=== PATIENT | female | born 1990 | race Caucasian/White ===

== ENCOUNTER 2019-05-24 11:44 | Inpatient (IN) ==
[2019-05-24] MEDS ORDERED: ALBUTEROL NEB ONE (12:05)
--- NOTE | 2019-05-24 12:05 | PROVIDER DOCUMENTATION ---
HPI-Respiratory General - General Chief Complaint: SEPSIS ALERT - P Stated Complaint: CONGESTION, BACK PAIN, FEVER Time Seen by Provider: 05/24/19 11:51 Source: patient, family Allergies/Adverse Reactions: Patient Allergies Allergy/AdvReac Type Severity Reaction Status Date / Time No Known Allergies Allergy Verified 05/24/19 13:30 Home Medications: Home Medication List Medication Instructions Recorded Confirmed Last Taken Type NK [No Home Medications] 05/24/19 05/24/19 Unknown History - History of Present Illness-Resp Nature of Presenting Problem: 28yof present to ER with c/o cough and congestion x 3 days. Denies fever. Parents states pt has c/o back pain. Parents poor historians. Quality of Pain: reports: aching Onset/Duration: reports: 3 days ago Timing: reports: still present Cough Quality/Degree: reports: productive cough (green) Associated Symptoms: reports: cough, hurts to breathe, nasal congestion. denies: fever/chills, wheezing Review of Systems - Adult - REVIEW OF SYSTEMS - ADULT Constitutional: reports: no symptoms reported. denies: chills, fever Eyes: reports: no symptoms reported Ears, Nose, Mouth & Throat: reports: see HPI, sinus problem. denies: throat pain Cardiovascular: reports: no symptoms reported. denies: chest pain Respiratory: reports: see HPI, cough Gastrointestinal: reports: no symptoms reported. denies: nausea, vomiting Genitourinary: reports: no symptoms reported Musculoskeletal: reports: see HPI, back pain Integumentary: reports: no symptoms reported Neurological: reports: no symptoms reported Psychiatric: reports: no symptoms reported Endocrine: reports: no symptoms reported Hematologic/Lymphatic: reports: no symptoms reported Allergic/Immunologic: reports: no symptoms reported All Other Systems: Reviewed and Negative Past History - Adult - PAST MEDICAL HISTORY-ADULT Review of Records: reports: Old Records Reviewed, Nursing Assessment Review, Medications Reviewed, Social history reviewed & non-contributory. Major Childhood Illnesses: reports: denies history Cardiovascular: reports: denies history, other (unknown congenital "heart trouble") Respiratory: reports: denies history Gastrointestinal: reports: denies history Obstetrical/Gynecological: reports: denies history Genitourinary: reports: denies history Musculoskeletal: reports: denies history Neurological: reports: denies history Psychiatric: reports: denies history Endocrine/Immune: reports: denies history Other Conditions: reports: denies history - PRIOR SURGERIES/PROCEDURES Surgical/Procedure History: reports: none - PRIOR HOSPITALIZATIONS Prior Hospitalizations: reports: other () - IMMUNIZATION STATUS Childhood Immunizations: See Nurse Assessment Flu Vaccine: See Nurse Assessment - FAMILY HISTORY Family History: reviewed, not pertinent Physical Exam-General - PHYSICAL EXAM-ADULT Initial Vital Signs Reviewed: Yes - CONSTITUTIONAL General Appearance: alert, no apparent distress - HEAD, EARS, NOSE, MOUTH & THROAT HENMT: moist mucous membranes, TMs normal, pharynx normal, other (yellow sputum to nose). negative: angioedema, frontal tenderness, maxillary tenderness - NECK Neck: full range of motion, supple, normal inspection. negative: lymphadenopathy, meningismus - RESPIRATORY Respiratory: lungs clear, normal breath sounds, increased rate - CARDIOVASCULAR Cardiovascular: tachycardia - GASTROINTESTINAL (ABDOMEN) Abdominal Exam: normal bowel sounds, non tender, soft - MUSCULOSKELETAL Back Exam: normal inspection Extremity: normal range of motion, normal inspection - SKIN Integumentary: normal color, warm/dry. negative: diaphoresis, jaundice, rash - NEUROLOGIC Neurologic: grossly normal - PSYCHIATRIC Psych/Mental Status: normal mood/affect Progress - PLAN OF CARE/RESULTS Progress/Plan/Lab Results: Vital Signs - 8 hr 05/24/19 11:52 05/24/19 12:30 05/24/19 12:59 Pulse Rate 114 H 120 H 103 H Respiratory Rate 28 H 24 18 Blood Pressure 108/70 135/75 O2 Sat by Pulse Oximetry 81 L 94 L Laboratory Results - last 24 hr 05/24/19 05/24/19 05/24/19 12:25 12:30 12:30 WBC 12.96 H RBC 4.97 Hgb 14.6 Hct 46.3 MCV 93.2 MCH 29.4 MCHC 31.5 L RDW Std Deviation 14.6 H Plt Count 266 MPV 10.5 H Immature Gran % (Auto) 0.8 H Neut % (Auto) 70.6 Lymph % (Auto) 19.0 L Mcminn % (Auto) 7.6 Eos % (Auto) 1.4 Baso % (Auto) 0.6 Immature Gran # (Auto) 0.11 H Neut # (Auto) 9.14 H Lymph # (Auto) 2.46 Mcminn # (Auto) 0.99 H Eos # (Auto) 0.18 Baso # (Auto) 0.08 Segmented Neutrophils 79 H Lymphocytes 14 L Monocytes 7 PT INR PTT (Actin FS) Specimen Type ARTERIAL Sample Site L RADIAL pH 7.36 pCO2 57 H* pO2 27 L* HCO3 27.2 H Base Excess 4.8 H Oxyhemoglobin 49.7 L* ABG O2 Sat (Calculated) 10.9 L ABG O2 Saturation 51.4 L ABG Carboxyhemoglobin 2.30 ABG Methemoglobin 1.1 James Test YES A-a O2 Difference 51.0 Total Hemoglobin 15.6 Lactate 1.20 Blood Gas Modality ROOM AIR FiO2 % 21.0 Sodium 141 Potassium 3.6 Chloride 99 Carbon Dioxide 28 Anion Gap 14 BUN 7 L Creatinine 0.8 Estimated GFR/1.73 m2 > 60 BUN/Creatinine Ratio 9 Glucose 146 H Calculated Osmolality 282 Calcium 8.9 Total Bilirubin 0.50 AST 15 ALT 21 Alkaline Phosphatase 76 Creatine Kinase 80 Troponin T Total Protein 7.4 Albumin 4.1 Globulin 3.0 Albumin/Globulin Ratio 1.0 Plasma Lactate Influenza A (Rapid) Influenza B (Rapid) 05/24/19 05/24/19 05/24/19 12:30 12:30 12:30 WBC RBC Hgb Hct MCV MCH MCHC RDW Std Deviation Plt Count MPV Immature Gran % (Auto) Neut % (Auto) Lymph % (Auto) Mcminn % (Auto) Eos % (Auto) Baso % (Auto) Immature Gran # (Auto) Neut # (Auto) Lymph # (Auto) Mcminn # (Auto) Eos # (Auto) Baso # (Auto) Segmented Neutrophils Lymphocytes Monocytes PT 14.8 INR 1.10 PTT (Actin FS) 35.1 Specimen Type Sample Site pH pCO2 pO2 HCO3 Base Excess Oxyhemoglobin ABG O2 Sat (Calculated) ABG O2 Saturation ABG Carboxyhemoglobin ABG Methemoglobin James Test A-a O2 Difference Total Hemoglobin Lactate Blood Gas Modality FiO2 % Sodium Potassium Chloride Carbon Dioxide Anion Gap BUN Creatinine Estimated GFR/1.73 m2 BUN/Creatinine Ratio Glucose Calculated Osmolality Calcium Total Bilirubin AST ALT Alkaline Phosphatase Creatine Kinase Troponin T 0.021 Total Protein Albumin Globulin Albumin/Globulin Ratio Plasma Lactate 1.3 Influenza A (Rapid) Influenza B (Rapid) 05/24/19 12:35 WBC RBC Hgb Hct MCV MCH MCHC RDW Std Deviation Plt Count MPV Immature Gran % (Auto) Neut % (Auto) Lymph % (Auto) Mcminn % (Auto) Eos % (Auto) Baso % (Auto) Immature Gran # (Auto) Neut # (Auto) Lymph # (Auto) Mcminn # (Auto) Eos # (Auto) Baso # (Auto) Segmented Neutrophils Lymphocytes Monocytes PT INR PTT (Actin FS) Specimen Type Sample Site pH pCO2 pO2 HCO3 Base Excess Oxyhemoglobin ABG O2 Sat (Calculated) ABG O2 Saturation ABG Carboxyhemoglobin ABG Methemoglobin James Test A-a O2 Difference Total Hemoglobin Lactate Blood Gas Modality FiO2 % Sodium Potassium Chloride Carbon Dioxide Anion Gap BUN Creatinine Estimated GFR/1.73 m2 BUN/Creatinine Ratio Glucose Calculated Osmolality Calcium Total Bilirubin AST ALT Alkaline Phosphatase Creatine Kinase Troponin T Total Protein Albumin Globulin Albumin/Globulin Ratio Plasma Lactate Influenza A (Rapid) NEGATIVE Influenza B (Rapid) NEGATIVE Orders Category Date Time Status Cardiac Monitoring DIRECTED Care 05/24/19 11:59 Completed IV Insertion ORDERED Care 05/24/19 11:59 Completed Notify MD of + Sepsis Screen NOW Care 05/24/19 11:59 Completed Notify Physician As Ordered Care 05/24/19 11:59 Completed Repeat Vital Signs .Temp Care 05/24/19 12:02 Active Straight Catheterization ORDERED Care 05/24/19 14:49 Active CHEST-1 VIEW [RAD] Stat Exams 05/24/19 11:59 Completed ABG [RESP] Routine Lab 05/24/19 12:25 Completed BLOOD CULTURE [BLDCUL] Stat Lab 05/24/19 12:41 Ordered CBC WITH DIFF [HEME] Stat Lab 05/24/19 12:30 Completed CK PROFILE [SP CHEM] Stat Lab 05/24/19 12:30 Completed COMPREHENSIVE METABOLIC PANEL [CHEM] Stat Lab 05/24/19 12:30 Completed Flu [INFLUENZA SCREEN PL] Stat Lab 05/24/19 12:35 Completed LACTATE, PLASMA [CHEM] Lab 05/24/19 12:30 Completed LACTATE, PLASMA [CHEM] Lab 05/24/19 15:21 Ordered LACTATE, PLASMA [CHEM] Lab 05/24/19 18:00 Uncollected PROTIME WITH INR [COAG] Stat Lab 05/24/19 12:30 Completed PTT [COAG] Stat Lab 05/24/19 12:30 Completed TROPONIN T Stat Lab 05/24/19 12:[address] W/POSS RFLX CULT [URINALYSIS] Stat Lab 05/24/19 14:50 Received 0.9% Sodium Chloride Inj [Ns] 1,000 ml Med 05/24/19 12:06 Discontinued IV 999 mls/hr Albuterol [Albuterol Neb] Med 05/24/19 12:05 Discontinued 2.5 mg .ROUTE .STK-MED ONE Albuterol [Albuterol Neb] Med 05/24/19 13:41 Discontinued 2.5 mg INH NOW ONE CefEPIME [Maxipime] 2 gm Med 05/24/19 14:30 Discontinued 0.9% Sodium Chloride Inj [Ns] 100 ml IV Q12H CefTRIAXONE [Rocephin] 1 gm Med 05/24/19 12:06 Discontinued 0.9% Sodium Chloride Inj [Ns] 50 ml IV NOW Pharmacy Order [Vancomycin IV Per Pharmacy] Med 05/24/19 14:30 Active 1 each MISC DIRECTED Oxygen Device Stat Oth 05/24/19 11:59 Completed neb [Aerosol Treatments] Stat Oth 05/24/19 12:30 Completed Transfer/Admit Order [TRANSFER] Routine Transfer 05/24/19 14:17 Ordered Result Diagrams: 05/24/19 12:30 05/24/19 12:30 - REASSESSMENT Reassessment #1 Time Reassessed: 14:02 (Dr Ceballos at bedside to see pt) Reassessment #2 Time Reassessed: 15:00 (pt placed on high flow O2) - XRAY 1 XRAY Study: Chest Impression: See EMR Report ( EXAM: CHEST-1 VIEW HISTORY: cough with low o2 sat TECHNIQUE: Single view COMPARISON: 12/31/2017 FINDINGS: Poor inspiratory effort. There are bilateral perihilar and left lower lung infiltrates. No cardiomegaly. No pleural effusions identified. IMPRESSION: Bilateral infiltrates. Follow-up and lateral recommended. Electronically signed by Solomon Hutchison 05/24/2019 12:52 PM) - CONSULTS/PCP/HOSPITALIST Notification #1 *Consult/PCP/Hospitalist*: Dr Ceballos spoke with Dr Klein Time Discussed: 14:02 Consult Disposition: Will see in ED, Admit Departure - Departure Date of Disposition Decision: 05/24/19 Time of Disposition Decision: 12:54 DIAGNOSIS: Elevated CO2 level, Shortness of breath Pneumonia Qualifiers: Pneumonia type: due to unspecified organism Laterality: bilateral Lung location: unspecified part of lung Qualified Code(s): J18.9 - Pneumonia, u nspecified organism Disposition: HOME 01 Certified Medical Emergency: Emergent Condition: Fair - Critical Care Note This patient required my direct & personal management of CC.: No Attestation - Physician/ NATAN Attestation Patient care was provided by Advanced Practice Provider:: Yes Advanced Practice Provider:: Neil Ha Advanced Practice Provider documentation review:: The Mid-level provider documentation, treatment plan and medical decision making was reviewed by the physician who agrees with all treatment and medical decision making by the MLP. The physician spent face to face time with patient:: Yes Advanced Practice Provider documentation review:: Supervising physician onsite and consulted in the evaluation and care of this patient. The physician did have a face to face encounter with the patient.
[2019-05-24] MEDS ORDERED: ROCEPHIN 1 GM in NS 50 ML IV ONE (12:06)
[2019-05-24] MEDS ORDERED: NS 1,000 ML IV ONE (12:06)
[2019-05-24 12:29] LABS: BE 4.8 mmoll (-3.0-3.0); BLOOD TYPE ARTERIAL; HCO3-(ACT) 27.2 mmoll (20.0-26.0); METHB 1.1 % (0.0-1.5); O2(CT) 10.9 mL/dL (15.0-23.0); SAMPLE BLOOD; SAO2 51.4 % (95.0-100.0); THB 15.6 g/dL (11.5-17.4); pH(98.6) 7.36 (7.35-7.45)
[2019-05-24 12:54] LABS: BASO# 0.08 X1000 (0.0-0.2); BASO% 0.6 % (0.0-0.8); EOS# 0.18 X1000 (0.0-0.7); EOS% 1.4 % (0.0-10.0); HEMATOCRIT 46.3 % (37.0-47.0); HEMOGLOBIN 14.6 g/dL (12.0-16.0); IMM GRAN# 0.11 X1000 (0.0-0.04); IMM GRAN% 0.8 % (0.0-0.5); LYMPH# 2.46 X1000 (1.2-3.4); MCH 29.4 PG (27-31); MCHC 31.5 g/dL (33-37); MCV 93.2 FL (81-99); MONO# 0.99 X1000 (0.11-0.59); MONO% 7.6 % (1.7-9.3); MPV 10.5 FL (7.4-10.4); NEUT# 9.14 X1000 (1.4-6.5); NEUT% 70.6 % (42.2-75.2); PLT 266 X1000 (130-400); RBC 4.97 XMIL (4.2-5.4); RDW 14.6 % (11.5-14.5); WBC 12.96 X1000 (4.8-10.8)
--- NOTE | 2019-05-24 12:54 | Diag Imaging Result Doc PS360 ---
EXAM: CHEST-1 VIEW HISTORY: cough with low o2 sat TECHNIQUE: Single view COMPARISON: 12/31/2017 FINDINGS: Poor inspiratory effort. There are bilateral perihilar and left lower lung infiltrates. No cardiomegaly. No pleural effusions identified. IMPRESSION: Bilateral infiltrates. Follow-up and lateral recommended. Electronically signed by Solomon Hutchison 05/24/2019 12:52 PM
[2019-05-24 13:02] LABS: PCO2(98.6) 57 mmHg (35-45); PO2(98.6) 27 mmHg (60-100)
[2019-05-24 13:03] LABS: INR 1.1; PROTIME 14.8 Seconds (11.0-16.0)
[2019-05-24 13:03] LABS: ALLEN TEST YES; MODALITY ROOM AIR; O2HB 49.7 % (95.0-99.0)
[2019-05-24 13:04] LABS: LYMPHS 14 % (21-51); MONO 7 % (1-9); PTT 35.1 Seconds (22.3-41.8); SEGS 79 % (42-75)
[2019-05-24 13:06] LABS: INFLUENZA A NEGATIVE (NEGATIVE); INFLUENZA B NEGATIVE (NEGATIVE)
[2019-05-24 13:07] LABS: AGAP 14; ALBUMIN 4.1 g/dL (3.5-5.0); ALKALINE PHOSPHATASE 76 U/L (32-104); BUN 7 mg/dL (8-22); CALCIUM 8.9 mg/dL (8.8-10.2); CHLORIDE 99 mmol/L (98-107); CK PROFILE 80 U/L (24-173); COSMO 282; CREATININE 0.8 mg/dL (0.5-0.9); ESTIMATED GFR > 60; GLUCOSE 146 mg/dL (70-104); GOT 15 U/L (10-30); GPT 21 U/L (10-36); POTASSIUM 3.6 mmol/L (3.5-5.1); SODIUM 141 mmol/L (136-145); TCO2 28 mmol/L (25-35); TOTAL PROTEIN 7.4 g/dL (6.3-8.3)
[2019-05-24] MEDS ORDERED: ALBUTEROL NEB INH ONE (13:41)
[2019-05-24] MEDS ORDERED: MAXIPIME 2 GM in NS 100 ML IV SCH (14:30)
[2019-05-24] MEDS ORDERED: VANCOMYCIN IV PER PHARMACY MISC SCH (14:30)
--- NOTE | 2019-05-24 14:54 | HISTORY AND PHYSICAL ---
ADDENDUM: This is a 28-year-old female with no major medical heart problems. She is a [facility] patient. She has Down syndrome. She came in with significant shortness of breath. She has not been admitted since December of last year. I think at that time she had pneumonia, reportedly history of hypertension and diabetes but I do not have any medications. She came in short of breath. She has cough, congestion, coryza. Initial saturations were 81% that was on 4 L. Some of the struggle with getting her O2 levels up is patient compliance because of her intellectual impairment difficult she kind of fights, but she is on a high-flow O2 and stabilizing. The previous H and P documents diabetes and hypertension but I cannot validate that and I do not have any external history. Last admission though she had to be placed on BiPAP though and she was pretty hypoxic then too. She has what is felt to be pneumonia. She has bilateral interstitial infiltrates. No cardiomegaly and white count, cough. They report fevers at home although she has not had any fevers here but she was admitted for acute hypoxic respiratory failure and pneumonia. We will place her on high-flow O2. Continue empiric antibiotics with vancomycin and cefepime. Breathing treatments. Will get a Pulmonary consult. ICU is unavailable right now at [facility] so we will transfer her across town for ICU and primary management, pulmonary evaluation. I do think when she stabilizes a bit better we may need to consider a CT scan. cc: Yefri Klein MD
--- NOTE | 2019-05-24 15:20 | HISTORY AND PHYSICAL ---
PRIMARY CARE PHYSICIAN: None. CHIEF COMPLAINT: Cough and congestion for the past 3 days that had progressively worsened. HISTORY OF PRESENTING ILLNESS: This is a 28-year-old, female with Down syndrome. Parents are at bedside. Presents to [facility] ER with complaints of cough and congestion over the past 3 days that has progressively worsened. Has had a subjective fever. Workup showed, on arrival, an O2 saturation on 4 L via nasal cannula of 81%. Had to be placed on high-flow oxygen and is now saturating 94%. White blood cell count of 12.96. ABG showed a pH of 7.36, pCO2 of 57, PO2 of 27, bicarb 27.2, and this was on room air on arrival. Her influenza A and B were negative. Her chest x-ray, however, did show bilateral infiltrates so she will be admitted to the [facility] for further evaluation and treatment. PAST MEDICAL HISTORY: Down syndrome. PAST SURGICAL HISTORY: Tonsillectomy and adenoidectomy. FAMILY HISTORY: Reviewed and noncontributory. SOCIAL HISTORY: She currently lives with her parents. Denies any tobacco, alcohol, or illicit drug use. ALLERGIES: She has no known drug allergies. HOME MEDICATIONS: She does not take any medications on a routine basis. LABORATORY DATA: Showed a white blood cell count of 12.96, hemoglobin 14.6, hematocrit 46.3, platelets 266,000. PT and INR of 14.8 and 1.10. ABG showed a pH of 7.36, pCO2 of 57, PO2 of 27, bicarb 27.2 on room air. Sodium 141, potassium 3.6, chloride 99, CO2 of 28, BUN of 7, creatinine 0.8, glucose 146. Cardiac enzyme was negative. Plasma lactate of 1.3. Influenza A and B were negative. Chest x-ray showed bilateral infiltrates. REVIEW OF SYSTEMS: She had a subjective fever. Denied any chills, blurred vision, dizziness, chest pain. She had a cough, congestion, and some mild shortness of breath. Denied any abdominal pain, constipation, diarrhea, burning or hurting with urination. PHYSICAL EXAMINATION: VITAL SIGNS: On arrival, she had a pulse of 114, respirations 28, blood pressure 108/70, saturating 81% on 4 L via nasal cannula, currently saturating 94-96% on high-flow O2. GENERAL: This is a 28-year-old, female sitting up in the bed. Answers questions appropriately. Parents are also at bedside to answer questions and reviewed medical record. HEENT: Normocephalic, atraumatic. Normal ENT inspection. Oropharynx and nares are clear. Eyes: Pupils are equal, round, and reactive to light and accommodation. Extraocular movements are intact. NECK: Normal inspection. Normal range of motion. LUNGS: With some scattered wheezing noted throughout the lung mckinnon. Equal lung expansion and chest wall movement noted. HEART: With some tachycardia. No murmurs, rubs, or gallops noted. ABDOMEN: Soft, nontender, nondistended. Bowel sounds are present x4 quadrants. MUSCULOSKELETAL: She has 5/5 strength x4 extremities. NEUROLOGICAL: The cranial nerves 2-12 appear grossly intact. ASSESSMENT: 1. Bilateral pneumonia. 2. Mild leukocytosis. 3. Acute respiratory failure. 4. Down syndrome, aware. PLAN: She will be admitted to the [facility]. Placed on telemetry, O2 per protocol. Again, she is on high-flow O2 at this time. We are going to get a CT of the thorax with contrast. We are going to consult pulmonology. Check a sputum culture. Place on normal saline at 125 mL an hour, Lovenox 40 mg subcutaneously q.24 for DVT prophylaxis, DuoNebs q.6 hours routinely and q.2 hours p.r.n. Recheck a CBC and BMP in the a.m. Cefepime 2 g IV q.12 and vancomycin per pharmacy protocol. We will do serial lactates as well. Blood cultures x2 are pending and a sputum culture is pending. Further orders after seen by attending and by hematology oncology consultant. Dictated by LAIHT Manuel for Yefri Klein MD cc: LAITH Manuel MD
[2019-05-24 15:37] LABS: BILIRUBIN URINE 1+ (NEGATIVE); BLOOD URINE 4+ (NEGATIVE); CLARITY VERY CLOUDY (CLEAR); COLOR AMBER; GLUCOSE URINE NEGATIVE (NEGATIVE); KETONE URINE 1+(Small) mg/dL (NEGATIVE); LEUKOCYTES URINE 1+ (NEGATIVE); NITRITE URINE NEGATIVE (NEGATIVE); PROTEIN URINE 2+(100 mg/dL) mg/dL (NEGATIVE); UROBILINOGEN URINE 4 mg/dL
[2019-05-24 16:05] LABS: URINE BACTERIA 1+ /HFP; URINE CAST EPITHELIAL PRESENT /LPF; URINE EPITHELIAL CELLS <10 /HPF (<10); URINE YEAST NONE SEEN /HPF
[2019-05-24 16:06] LABS: URINE CRYSTAL NONE SEEN /HPF; URINE SOURCE CATH
[2019-05-24] MEDS ORDERED: NS 1,000 ML IV SCH (16:09)
[2019-05-24] MEDS ORDERED: DUONEB (A & A) INH PRN (16:09)
[2019-05-24] MEDS ORDERED: ZOFRAN IV PRN (16:09)
[2019-05-24] MEDS ORDERED: HALDOL IM PRN (16:09)
[2019-05-24] MEDS: PROTONIX IV SCH (16:24)
[2019-05-24] MEDS: SODIUM CHLORIDE 0.9% INJ SCH (16:24)
[2019-05-24] MEDS: LOVENOX SUBQ SCH (16:24)
[2019-05-24] MEDS ORDERED: BLISTEX MEDICATED BERRY LIP BALM TOP PRN (16:30)
[2019-05-24] MEDS ORDERED: VANCOMYCIN 1.8 GM in NS 250 ML IV ONE (17:00)
[2019-05-24] MEDS: LEVAQUIN 500 MG/D5W 500 MG/100 ML IVPB IV SCH (20:00)
[2019-05-24] MEDS: D5 NS 1,000 ML IV SCH (20:56)
--- NOTE | 2019-05-24 20:56 | PULMONOLOGY CONSULTATION ---
DATE: 05/24/2019 REQUESTING CLINICIAN: Dr. Bob Klein. REASON FOR CONSULTATION: Respiratory failure. HISTORY OF PRESENT ILLNESS: Ms. Chamberlain is a 28-year-old female with Down syndrome. She has had 2 prior admissions to this system with community-acquired pneumonia in 2015 and again in 2018. The patient is a difficult historian and per ER record, her parents are also difficult historians. She was evaluated in the emergency room with cough, chest congestion, and reports of back pain. The patient's oxygen saturation was low and an arterial blood gas on room air revealed severe hypoxemia with a pH of 7.36, pCO2 of 57, and a PO2 of 27. She is maintaining her saturation on the high-flow nasal cannula. She currently is in no distress. She replies no to all questions on the review of systems except for some back pain and she gives an explanation of difficulty with her bed. It was hard to follow the explanation. PAST MEDICAL HISTORY: 1. Down syndrome. 2. Status post tonsillectomy. 3. Morbid obesity. FAMILY HISTORY: Positive for diabetes, strokes, and heart disease. SOCIAL HISTORY: Nonsmoker. No alcohol use. She lives with family. ALLERGIES: Patient has no known allergies. MEDICATIONS: Takes no chronic medications. PHYSICAL EXAMINATION: Reveals an obese white female with a BMI of 48.8. She has been afebrile during this hospitalization. Blood pressure 97/69, heart rate 82, respiratory rate 19, oxygen saturation 96%.HEENT: Pupils are equal and reactive. Oropharynx appears clear. Neck: Supple. Chest: Reveals coarse rhonchi bilaterally. Cardiac: S1, S2. Abdomen: Obese and soft. Extremities: Reveal trace to 1+ peripheral edema. LABORATORIES: White blood count 12.96, hemoglobin 14.6, platelet count 266,000. Sodium 141, potassium 3.6, chloride 99, bicarbonate 28, BUN 7, creatinine 0.8. Chest x-ray reveals diffuse bilateral infiltrates. IMPRESSION: 28-year-old with coarse rhonchi on exam and: 1. Bilateral pneumonia. 2. Acute hypoxemic respiratory failure. 3. Morbid obesity. 4. Chronic hypercapnic respiratory failure. 5. Leukocytosis. DISCUSSION: 28-year-old with a community-acquired pneumonia. She is morbidly obese, which may make it more difficult to treat her pneumonia. RECOMMENDATIONS: 1. Agree with ICU admission as you have done. 2. Continue IV fluids. Will give some supplemental glucose. 3. Maintain NPO status until she has radiographic improvement and decreasing oxygen requirements. 4. Add atypical coverage to her current antibiotic regimen. 5. We will check a Legionella antigen and a pneumococcal antigen. cc: Charanjit Ray MD
[2019-05-24] MEDS: DUONEB (A & A) INH SCH (21:24)
[2019-05-25] MEDS: DUONEB (A & A) INH SCH ×7 (00:26→23:30)
[2019-05-25] MEDS: MAXIPIME 2 GM in NS 100 ML IV SCH ×2 (02:16→16:24)
[2019-05-25 04:46] LABS: ALLEN TEST YES; BE 2.3 mmoll (-3.0-3.0); BLOOD TYPE ARTERIAL; HCO3-(ACT) 26.6 mmoll (20.0-26.0); METHB 1.2 % (0.0-1.5); O2(CT) 18.2 mL/dL (15.0-23.0); O2HB 94.3 % (95.0-99.0); PO2(98.6) 79 mmHg (60-100); SAMPLE BLOOD; SAO2 97.3 % (95.0-100.0); THB 13.7 g/dL (11.5-17.4); pH(98.6) 7.33 (7.35-7.45)
[2019-05-25 04:52] LABS: MODALITY HIGH FLOW NASAL CAN; PCO2(98.6) 56 mmHg (35-45)
[2019-05-25 06:38] LABS: BASO# 0.05 X1000 (0.0-0.2); BASO% 0.5 % (0.0-0.8); EOS# 0.24 X1000 (0.0-0.7); EOS% 2.3 % (0.0-10.0); HEMATOCRIT 40.5 % (37.0-47.0); HEMOGLOBIN 12.7 g/dL (12.0-16.0); IMM GRAN# 0.14 X1000 (0.0-0.04); IMM GRAN% 1.3 % (0.0-0.5); LYMPH# 1.52 X1000 (1.2-3.4); LYMPH% 14.5 % (20.5-51.1); MCH 29.7 PG (27-31); MCHC 31.4 g/dL (33-37); MCV 94.6 FL (81-99); MONO# 0.77 X1000 (0.11-0.59); MONO% 7.3 % (1.7-9.3); NEUT# 7.77 X1000 (1.4-6.5); NEUT% 74.1 % (42.2-75.2); PLT 227 X1000 (130-400); RBC 4.28 XMIL (4.2-5.4); RDW 14.4 % (11.5-14.5); WBC 10.49 X1000 (4.8-10.8)
[2019-05-25 07:13] LABS: AGAP 15; BUN 5 mg/dL (8-22); CHLORIDE 100 mmol/L (98-107); COSMO 277; CREATININE 0.5 mg/dL (0.5-0.9); GLUCOSE 111 mg/dL (70-104); POTASSIUM 3.7 mmol/L (3.5-5.1); SODIUM 140 mmol/L (136-145); TCO2 25 mmol/L (25-35)
[2019-05-25 08:04] LABS: BANDS 4 % (0-1); LYMPHS 26 % (21-51); MONO 6 % (1-9); SEGS 64 % (42-75)
--- NOTE | 2019-05-25 08:24 | Diag Imaging Result Doc PS360 ---
EXAM: CT THORAX W/CONTRAST INDICATION: pneumonia TECHNIQUE: This exam was performed using automated exposure control, adjustment of mA or kV according to patient size, and/or use of iterative reconstruction technique. COMPARISON: None. FINDINGS: There are patchy groundglass airspace consolidations throughout both lungs indicating multilobar pneumonia. There is a more dense consolidation and atelectasis at the medial left lung base. There is bilateral basilar interstitial thickening as well suggesting some edema. There are very small pleural fluid collections at the lung bases. There is fairly prominent mediastinal lymphadenopathy. For reference, there is a lymph node in the right pretracheal region measuring up to 3.3 x 1.9 cm axially. At least in part, this is reactive due to the infection. However, consider a follow-up to assure resolution given their prominence. There is no cardiomegaly. Limited views of the upper abdomen reveals mild to moderate hepatic steatosis. IMPRESSION: 1.Patchy airspace infiltrate and interstitial seen throughout both lungs consistent with multilobar pneumonia. 2.Very small bilateral pleural effusions. 3.Fairly significant mediastinal lymphadenopathy. Please see above discussion. Electronically signed by John Boogie 05/25/2019 8:22 AM
[2019-05-25] MEDS: D5 NS 1,000 ML IV SCH ×2 (08:57→23:24)
--- NOTE | 2019-05-25 10:08 | PROGRESS NOTE ---
DATE: 05/25/2019 SUBJECTIVE: Patient reports breathing better. Family, who is at bedside, reported that she is feeling much better in comparing with admission. OBJECTIVE: Vital Signs: Temperature 98.3, heart rate 75, respiratory rate 22, blood pressure 106/54, O2 saturation 96% on a Ventimask 50%. General Examination: This is a 28-year-old, female with a past medical history of Down's syndrome, lying in bed, in no acute distress. Cardiovascular Examination: S1 and S2 heard. No murmurs, gallops, or rubs. Regular rate and rhythm. Respiratory Examination: Scattered wheezing noted in both pulmonary bases. Patient is not using any accessory muscles or having work of breathing. Abdomen: Soft, nontender to palpation. Bowel sounds present. No organomegaly. Extremities: No clubbing, cyanosis, or edema. Peripheral pulses present in both legs. Neurological Examination: The patient is alert and oriented x3. Moves 4 extremities. Laboratory Data: White cell count 10.49, hemoglobin 12.7, hematocrit 40.5, platelets 227,000. ABG shows a pH of 7.32, with pCO2 of 56, and PO2 of 79. That was on high-flow nasal cannula at 6 L per minute. BMP is unremarkable. CT of the chest showed patchy airspace infiltrate interstitial seen throughout both lungs, consistent with multilobar pneumonia with very small bilateral pleural effusions and fairly significant mediastinal lymphadenopathy. ASSESSMENT: 1. Acute respiratory failure secondary to multilobar pneumonia. The patient is on vancomycin per pharmacy and Zosyn. She is on breathing treatments every 6 hours. We are going to change it to every 4 hours scheduled. 2. Leukocytosis has resolved. Pulmonary is following this patient. RECOMMENDATIONS: Blood culture and sputum culture are pending. I think the patient is much more stable so we will move this patient to the [facility]. cc: Pastor Rm MD
[2019-05-25] MEDS: VANCOMYCIN 1.2 GM in NS 250 ML IV SCH ×2 (10:48→23:23)
[2019-05-25 14:23] LABS: ALLEN TEST YES; BE 5.9 mmoll (-3.0-3.0); BLOOD TYPE ARTERIAL; HCO3-(ACT) 29.5 mmoll (20.0-26.0); METHB 0.9 % (0.0-1.5); O2(CT) 16.9 mL/dL (15.0-23.0); O2HB 95.8 % (95.0-99.0); PO2(98.6) 88 mmHg (60-100); SAMPLE BLOOD; SAO2 99.3 % (95.0-100.0); THB 12.5 g/dL (11.5-17.4); pH(98.6) 7.33 (7.35-7.45)
[2019-05-25 14:24] LABS: MODALITY HIGH FLOW NASAL CAN; PCO2(98.6) 64 mmHg (35-45)
[2019-05-25] MEDS: DIPRIVAN 1% 1,000 MG/100 ML BOTTLE IV SCH ×4 (14:55→23:25)
[2019-05-25] MEDS ORDERED: QUELICIN (DOSE) ONE (14:59)
[2019-05-25] MEDS ORDERED: DIPRIVAN 1% ONE (14:59)
--- NOTE | 2019-05-25 15:38 | Diag Imaging Result Doc PS360 ---
CHEST-PORTABLE - 05/25/2019 INDICATION: INTUBATION COMPARISON: 05/24/2019 FINDINGS: There is a new endotracheal tube in good position at T3. Lung volumes are improved. There is slight worsening in the diffuse central infiltrates, nonspecific but highly suggestive of pulmonary edema. Heart size is top normal. IMPRESSION: Good endotracheal tube placement. Bilateral infiltrates compatible with pneumonia. Electronically signed by Nitin Barillas 05/25/2019 3:36 PM
[2019-05-25] MEDS: PROTONIX IV SCH (16:25)
[2019-05-25] MEDS: LOVENOX SUBQ SCH (16:25)
[2019-05-25 16:28] LABS: URINE SOURCE CATH
[2019-05-25 16:29] LABS: ALLEN TEST YES; BE 5.6 mmoll (-3.0-3.0); BLOOD TYPE ARTERIAL; HCO3-(ACT) 29.2 mmoll (20.0-26.0); METHB 1.2 % (0.0-1.5); O2(CT) 16.5 mL/dL (15.0-23.0); O2HB 94.9 % (95.0-99.0); PCO2(98.6) 41 mmHg (35-45); PO2(98.6) 72 mmHg (60-100); SAMPLE BLOOD; SAO2 97.5 % (95.0-100.0); SRATE 18 BPM; THB 12.3 g/dL (11.5-17.4); TVOL 500 mL; pH(98.6) 7.47 (7.35-7.45)
[2019-05-25 16:30] LABS: MODALITY VENTILATOR
[2019-05-25 16:45] LABS: BILIRUBIN URINE NEGATIVE (NEGATIVE); BLOOD URINE NEGATIVE (NEGATIVE); COLOR YELLOW; GLUCOSE URINE NEGATIVE (NEGATIVE); KETONE URINE NEGATIVE (NEGATIVE); LEUKOCYTES URINE NEGATIVE (NEGATIVE); NITRITE URINE NEGATIVE (NEGATIVE); PROTEIN URINE NEGATIVE (NEGATIVE); SP GRAVITY URINE 1.028; TURBIDITY URINE CLEAR (CLEAR); UROBILINOGEN URINE NORMAL (NORMAL)
[2019-05-25 16:48] LABS: UR EPITHELIAL CELLS <10 /HPF (<10); URINE BACTERIA NEGATIVE /HPF; URINE RBC <10 /HPF (<10); URINE WBC <10 /HPF (<10)
[2019-05-25] MEDS ORDERED: VANCOMYCIN 1.45 GM in NS 250 ML IV SCH (17:00)
[2019-05-25] MEDS: LEVAQUIN 500 MG/D5W 500 MG/100 ML IVPB IV SCH (18:42)
--- NOTE | 2019-05-25 22:22 | PULMONOLOGY PROGRESS NOTE ---
DATE: 05/25/2019 INTERIM HISTORY: Patient was seen in the morning. She was fatigued but she could speak. She did try to eat today. During the afternoon she became progressively somnolent without medications and could not be aroused. Arterial blood gas was obtained, which revealed an increase in her CO2 level, pH 7.33, pCO2 of 64, pO2 of 88. She was intubated by Anesthesia and initiated on mechanical ventilation. OBJECTIVE: The patient is sedated but appears comfortable. She has been afebrile for the last 24 hours. Blood pressure 101/53, heart rate 69, respiratory rate 18, oxygen saturation 95%.HEENT: Pupils are equal and reactive. Oropharynx is clear but evaluation is limited with endotracheal tube in place. Neck: Supple. Chest: Reveals coarse rhonchi bilaterally. Cardiac: S1, S2. Abdomen: Obese and soft . Extremities: Reveal trace to 1+ peripheral edema. LABORATORIES: CT scan of the thorax earlier this morning revealed bilateral infiltrates consistent with multilobar pneumonia along with mediastinal adenopathy and small bilateral effusions. Sodium 140, potassium 3.7, chloride 100, bicarbonate 25, BUN 5, creatinine 0.9. White blood count 10.49, hemoglobin 12.7, platelet count 227,000. IMPRESSION: 28-year-old with 1. Community-acquired pneumonia. 2. Acute hypoxemic respiratory failure. 3. Acute hypercapnic respiratory failure. 4. Chronic hypercapnic respiratory failure. 5. Morbid obesity. PLAN: 1. Intubation and initiation of mechanical ventilation. 2. Continue current IV fluids. 3. Anticipate placement of an NG catheter for tube feeds in the near future. 4. Continue broad-spectrum antibiotics. 5. Continue DVT prophylaxis and gastric acid suppression. TIME SPENT: In critical care management 30+ minutes. cc: Charanjit Ray MD
[2019-05-26] MEDS: MAXIPIME 2 GM in NS 100 ML IV SCH ×2 (03:06→16:16)
[2019-05-26] MEDS: DIPRIVAN 1% 1,000 MG/100 ML BOTTLE IV SCH ×7 (03:06→23:10)
[2019-05-26 05:19] LABS: ALLEN TEST YES; BE 7.2 mmoll (-3.0-3.0); BLOOD TYPE ARTERIAL; HCO3-(ACT) 30.5 mmoll (20.0-26.0); O2(CT) 17.5 mL/dL (15.0-23.0); O2HB 95.6 % (95.0-99.0); PCO2(98.6) 41 mmHg (35-45); PO2(98.6) 79 mmHg (60-100); SAMPLE BLOOD; SAO2 98.5 % (95.0-100.0); SRATE 18 BPM; TVOL 500 mL; pH(98.6) 7.49 (7.35-7.45)
[2019-05-26 05:21] LABS: MODALITY VENTILATOR
[2019-05-26] MEDS: DUONEB (A & A) INH SCH ×6 (06:00→23:15)
--- NOTE | 2019-05-26 07:22 | Diag Imaging Result Doc PS360 ---
EXAM: CHEST-PORTABLE 05/26/2019 HISTORY: intubated TECHNIQUE: AP portable at 0529 COMMENT: There is an endotracheal tube with its tip at thoracic inlet. The inspiration is less optimal than on 05/25/2019 but there has been some improvement in the pulmonary opacities on the right. There is denser opacification of the left lower lobe, however this may be partially due to poor inspiration. IMPRESSION: Improved pulmonary edema. Atelectasis versus pneumonia left lower lobe. Electronically signed by Will Penn 05/26/2019 7:19 AM
[2019-05-26] MEDS: VANCOMYCIN 1.2 GM in NS 250 ML IV SCH ×2 (10:17→23:10)
--- NOTE | 2019-05-26 12:28 | PROGRESS NOTE ---
DATE: 05/26/2019 SUBJECTIVE: The patient is intubated and sedated, although her eyes are opening, and she is coughing against the ventilator. OBJECTIVE: Vital Signs: Blood pressure is 97/41, heart rate of 77, respiratory rate of 15, temperature 97.9 degrees, saturating 94% on 60%. Cardiovascular: Regular rate and rhythm. Pulmonary: Bilateral breath sounds. Clear to auscultation. GI: Soft, nontender, nondistended. Bowel sounds were positive. IMAGING AND LABORATORY DATA: I do not have any new hemoglobin and hematocrit today. PH 7.49, pCO2 of 41, PaO2 of 79. Sugar is 109. Microbiology has been negative. Chest x-ray shows bilateral infiltrates with improved pulmonary edema with a left lower lobe pneumonia. PROBLEM LIST: 1. Acute hypoxic respiratory failure due to multilobar pneumonia. She is on vancomycin, Zosyn, and Levaquin for atypical coverage. We will continue breathing treatments. I may add some Mucomyst. Overall, she is doing okay all things considered, but may be a difficult weaning process because of her obesity and her intellectual impairment, but we will continue treatment. Greatly appreciate Dr. Ray's input. 2. Left lower lobe pneumonia, presumably community acquired. He seems to be doing okay from that standpoint. We will continue antibiotics. Follow up on cultures. 3. Questionable volume overload. The only thing with this patient I think that concerns me is just because of her Down syndrome state is that, is it possible she has underlying cardiac issues? Not a clear etiology, but I will go ahead and pursue an echocardiogram #1 and follow. She has had a valvular abnormality. Her parents state that was not repaired as a child, but she was given medication. I am thinking it is possible that she had a patent ductus arteriosus possibly, but will see. 4. Disposition. Pending her clinical status. Continue critical care monitoring in the intensive care unit. cc: Yefri Klein MD
[2019-05-26] MEDS: LASIX IV SCH (13:28)
[2019-05-26] MEDS: D5 NS 1,000 ML IV SCH ×2 (14:10→18:27)
[2019-05-26] MEDS: LOVENOX SUBQ SCH (16:16)
[2019-05-26] MEDS: PROTONIX IV SCH (16:16)
[2019-05-26] MEDS: LEVAQUIN 500 MG/D5W 500 MG/100 ML IVPB IV SCH (18:18)
[2019-05-26] MEDS: ATIVAN IV PRN ×2 (19:05→23:10)
--- NOTE | 2019-05-26 19:11 | Diag Imaging Result Doc PS360 ---
CHEST-PORTABLE - 05/26/2019 5:43 PM INDICATION: NG tube placement COMPARISON: 5:29 AM FINDINGS: There is a nasogastric tube in good position in the stomach. Stable endotracheal tube in good position. IMPRESSION: No complication. Electronically signed by Nitin Barillas 05/26/2019 7:08 PM
[2019-05-26] MEDS: MUCOMYST 20% INH SCH (19:56)
--- NOTE | 2019-05-27 00:32 | ECHO REPORT ---
ORDER DATE: 05/26/2019 MEASUREMENTS: Septal thickness 1.0. Left ventricular internal diameter in diastole 4.6. Posterior wall thickness 0.9. Left ventricular internal diameter in systole 2.6. Left atrium 3.8. SUMMARY: 1. Technically difficult study due to limited acoustic window quality. Intravenous echo contrast agent, Optison, was utilized to enhance endocardial definition. 2. Aortic valve is trileaflet and opens normally on 2-dimensional images. The peak gradient across the aortic valve is 10 to 15 mmHg. Mild mitral annular calcification is demonstrated. Tricuspid valve is without evidence of structural abnormality while pulmonic valve is not well demonstrated. There is trace tricuspid regurgitation. The aortic root is normal in size. 3. Normal left ventricular dimensions demonstrated. The estimated left ejection fraction appears to be at least 65%. No regional wall motion abnormalities evident. Left atrium, right atrium, right ventricle are normal in size with grossly preserved right ventricular systolic function. Echodensity is noted just above the lateral tricuspid leaflet in the right atrium measuring approximately 1.5 cm. On a few views, this appears to possibly be incontinuity with echodensity traversing up towards the junction of the right atrium and the superior vena cava, possibly due to a very prominent china terminalis. However, it is difficult to entirely exclude right atrial tumor, such as myxoma. 4. No pericardial effusion. 5. Inferior vena cava appears normal in size suggesting normal central venous pressure. CONCLUSIONS: 1. Technically difficult study. 2. Mild mitral annular calcification. 3. Normal left ventricular systolic function without wall motion abnormality evident. 4. Mass in right atrium, as described, of unclear clinical significance, possibly due to very prominent china terminalis, but cannot entirely exclude atrial myxoma. Consideration of transesophageal echocardiography if clinically indicated. cc: MD Yefri Selby MD
--- NOTE | 2019-05-27 01:07 | PULMONOLOGY PROGRESS NOTE ---
DATE: 05/26/2019 SUBJECTIVE: The patient remains on mechanical ventilation. She appears comfortable. OBJECTIVE: The patient has been afebrile for the last 24 hours. Blood pressure 96/50, heart rate 66, respiratory rate 14, oxygen saturation 94%. HEENT: Pupils are equal and reactive. Oropharynx appears clear. Neck is supple. Chest reveals coarse rhonchi bilaterally. Cardiac exam: S1, S2. Abdomen is obese and soft. Extremities reveal +1 peripheral edema. DIAGNOSTIC DATA: Chest x-ray reveals left lower lobe pneumonia. Microbiology reveals no new data. IMPRESSION: A 28-year-old with: 1. Down syndrome. 2. Community-acquired pneumonia. 3. Acute hypoxemic respiratory failure. 4. Acute hypercapnic respiratory failure. 5. Chronic hypercapnic respiratory failure. 6. Morbid obesity. PLAN: 1. Continue mechanical ventilation. She remains on significant FIO2 making significant weaning difficult at this juncture. 2. Continue IV fluids. 3. Continue broad-spectrum antibiotics. 4. Continue DVT prophylaxis and gastric acid suppression. 5. Place NG tube and initiate tube feeds. Time spent in critical care management 30-plus minutes. cc: Charanjit Ray MD
[2019-05-27] MEDS: DUONEB (A & A) INH SCH ×6 (03:11→23:10)
[2019-05-27] MEDS: D5 NS 1,000 ML IV SCH ×2 (03:34→15:30)
[2019-05-27] MEDS: DIPRIVAN 1% 1,000 MG/100 ML BOTTLE IV SCH ×6 (03:41→20:49)
[2019-05-27] MEDS: MAXIPIME 2 GM in NS 100 ML IV SCH ×2 (03:42→14:57)
[2019-05-27 05:37] LABS: ALLEN TEST YES; BLOOD TYPE ARTERIAL; HCO3-(ACT) 31.2 mmoll (20.0-26.0); O2(CT) 15.9 mL/dL (15.0-23.0); O2HB 97.2 % (95.0-99.0); PCO2(98.6) 31 mmHg (35-45); PO2(98.6) 152 mmHg (60-100); SAMPLE BLOOD; SAO2 99.9 % (95.0-100.0); SRATE 14 BPM; THB 11.4 g/dL (11.5-17.4); TVOL 500 mL
[2019-05-27 05:39] LABS: MODALITY VENTILATOR
[2019-05-27 05:41] LABS: pH(98.6) 7.59 (7.35-7.45)
[2019-05-27 06:39] LABS: BASO# 0.04 X1000 (0.0-0.2); BASO% 0.6 % (0.0-0.8); EOS# 0.28 X1000 (0.0-0.7); EOS% 3.9 % (0.0-10.0); HEMOGLOBIN 11.2 g/dL (12.0-16.0); IMM GRAN% 1.4 % (0.0-0.5); LYMPH# 1.54 X1000 (1.2-3.4); LYMPH% 21.3 % (20.5-51.1); MCH 30.1 PG (27-31); MCV 94.1 FL (81-99); MONO# 0.57 X1000 (0.11-0.59); MONO% 7.9 % (1.7-9.3); MPV 10.9 FL (7.4-10.4); NEUT% 64.9 % (42.2-75.2); PLT 201 X1000 (130-400); RBC 3.72 XMIL (4.2-5.4); RDW 14.9 % (11.5-14.5); WBC 7.23 X1000 (4.8-10.8)
[2019-05-27 07:05] LABS: AGAP 9; BUN 6 mg/dL (8-22); CALCIUM 7.8 mg/dL (8.8-10.2); CHLORIDE 102 mmol/L (98-107); COSMO 282; CREATININE 0.8 mg/dL (0.5-0.9); ESTIMATED GFR > 60; GLUCOSE 115 mg/dL (70-104); POTASSIUM 2.9 mmol/L (3.5-5.1); SODIUM 142 mmol/L (136-145); TCO2 31 mmol/L (25-35)
--- NOTE | 2019-05-27 07:06 | Diag Imaging Result Doc PS360 ---
CHEST-PORTABLE - 05/27/2019 INDICATION: dyspnea COMPARISON: 05/26/2019 FINDINGS: Support tubes are stable and in good position. Lung volumes are severely low. There is cardiomegaly. There are diffuse bilateral central infiltrates suggesting pulmonary edema. IMPRESSION: No complication or change from prior. Electronically signed by Ntiin Barillas 05/27/2019 7:04 AM
[2019-05-27 07:47] LABS: BANDS 2 % (0-1); LYMPHS 22 % (21-51); MONO 6 % (1-9); SEGS 70 % (42-75)
[2019-05-27] MEDS: MUCOMYST 20% INH SCH ×2 (07:54→23:10)
[2019-05-27] MEDS: LASIX IV SCH (09:22)
[2019-05-27] MEDS: VANCOMYCIN 1.2 GM in NS 250 ML IV SCH (10:38)
[2019-05-27] MEDS ORDERED: POTASSIUM CHLORIDE 20% LIQUID PO ONE (10:57)
--- NOTE | 2019-05-27 11:14 | PROGRESS NOTE ---
DATE: 05/27/2019 SUBJECTIVE: Patient has no major complaints. OBJECTIVE: Blood pressure 124/57, heart rate of 70, respiratory rate 17, and temperature was 99.2 degrees.Cardiovascular: Regular rate and rhythm. Pulmonary: Bilateral breath sounds. Clear to auscultation. She has some end-expiratory wheezes. GI: Soft, nontender, and nondistended. Bowel sounds are positive. LABORATORY: White count 7, hemoglobin and hematocrit 11 and 35, platelets of 201,000. A pH 7.59, pCO2 of 31, PaO2 152. Potassium is 2.9. Cultures are negative. PROBLEM LIST: 1. Acute respiratory failure due to multilobar pneumonia. She is on vancomycin, Zosyn and Levaquin. Vancomycin will be day 3. I think we ordered it on the . Levaquin day 3, cefepime day 2. We will continue to monitor. Chest x-ray does not show a large amount of improvement unfortunately. Dr. Ray managing ventilator of course. 2. Left lower lobe pneumonia. She is on broad-spectrum antibiotics. 3. Questionable volume overload. She is stable. Her echocardiogram looked okay as far as her ejection fraction, however, there is a question of an atrial myxoma. I have consulted Cardiology to evaluate for UMANG. I do not know if the fact that she is on a vent will be helpful or harmful. Her airway will be protected, but it may be technically difficult to do a UMANG at this point, but we will get evaluation and monitor. DISPOSITION: 1. Pending her clinical status, obviously, she still has a ways to go as far as her vent weaning. 2. Hypokalemia. We will supplement and follow up. I appreciate [employer] consultant's help. Patient is still critically ill in the ICU. cc: Yefri Klein MD
[2019-05-27] MEDS: POTASSIUM CHLORIDE 20 MEQ/SWI 20 MEQ/100 ML IVPB IV SCH ×2 (11:31→13:12)
[2019-05-27] MEDS: PROTONIX IV SCH (15:09)
[2019-05-27] MEDS: LOVENOX SUBQ SCH (15:09)
[2019-05-27] MEDS: LEVAQUIN 500 MG/D5W 500 MG/100 ML IVPB IV SCH (18:16)
[2019-05-27] MEDS: ATIVAN IV PRN (20:49)
[2019-05-28] MEDS: VANCOMYCIN 1.2 GM in NS 250 ML IV SCH ×3 (00:03→23:40)
[2019-05-28] MEDS: LASIX IV SCH ×3 (00:03→23:40)
[2019-05-28] MEDS: DIPRIVAN 1% 1,000 MG/100 ML BOTTLE IV SCH ×7 (01:58→22:52)
[2019-05-28] MEDS: MAXIPIME 2 GM in NS 100 ML IV SCH ×2 (02:00→15:19)
[2019-05-28] MEDS: DUONEB (A & A) INH SCH ×6 (03:20→23:11)
[2019-05-28] MEDS: D5 NS 1,000 ML IV SCH ×2 (03:38→18:16)
[2019-05-28] MEDS: ATIVAN IV PRN ×2 (03:38→12:06)
[2019-05-28 05:11] LABS: ALLEN TEST YES; BE 7.2 mmoll (-3.0-3.0); BLOOD TYPE ARTERIAL; HCO3-(ACT) 30.5 mmoll (20.0-26.0); METHB 0.9 % (0.0-1.5); O2(CT) 16.3 mL/dL (15.0-23.0); O2HB 93.9 % (95.0-99.0); PCO2(98.6) 45 mmHg (35-45); PO2(98.6) 68 mmHg (60-100); SAMPLE BLOOD; SAO2 96.7 % (95.0-100.0); SRATE 10 BPM; THB 12.3 g/dL (11.5-17.4); TVOL 500 mL; pH(98.6) 7.46 (7.35-7.45)
[2019-05-28 05:13] LABS: MODALITY VENTILATOR
[2019-05-28 06:04] LABS: BASO# 0.03 X1000 (0.0-0.2); BASO% 0.4 % (0.0-0.8); EOS# 0.33 X1000 (0.0-0.7); EOS% 4.3 % (0.0-10.0); HEMATOCRIT 39.1 % (37.0-47.0); HEMOGLOBIN 12.2 g/dL (12.0-16.0); IMM GRAN# 0.18 X1000 (0.0-0.04); IMM GRAN% 2.3 % (0.0-0.5); LYMPH# 1.49 X1000 (1.2-3.4); LYMPH% 19.3 % (20.5-51.1); MCH 29.5 PG (27-31); MCHC 31.2 g/dL (33-37); MCV 94.4 FL (81-99); MONO# 0.65 X1000 (0.11-0.59); MONO% 8.4 % (1.7-9.3); MPV 10.8 FL (7.4-10.4); NEUT# 5.06 X1000 (1.4-6.5); NEUT% 65.3 % (42.2-75.2); PLT 201 X1000 (130-400); RBC 4.14 XMIL (4.2-5.4); RDW 15.3 % (11.5-14.5); WBC 7.74 X1000 (4.8-10.8)
[2019-05-28 06:08] LABS: AGAP 15; BUN 9 mg/dL (8-22); CHLORIDE 103 mmol/L (98-107); COSMO 293; CREATININE 0.7 mg/dL (0.5-0.9); ESTIMATED GFR > 60; GLUCOSE 133 mg/dL (70-104); MAGNESIUM 1.9 mg/dL (1.5-2.7); PHOSPHORUS 4.2 mg/dL (2.7-4.5); POTASSIUM 3.3 mmol/L (3.5-5.1); SODIUM 147 mmol/L (136-145); TCO2 29 mmol/L (25-35)
--- NOTE | 2019-05-28 07:26 | Diag Imaging Result Doc PS360 ---
EXAM: CHEST-PORTABLE INDICATION: dyspnea TECHNIQUE: One view COMPARISON: 05/27/2019 FINDINGS: Support tubes and lines are in stable positions. Perihilar infiltrates bilaterally are essentially stable suggesting pulmonary edema and pulmonary venous congestion. There is likely a small left effusion that is unchanged. No new consolidation is identified. Cardiac silhouette is stable. IMPRESSION: Stable chest. Electronically signed by John Boogie 05/28/2019 7:24 AM
--- NOTE | 2019-05-28 07:55 | PULMONOLOGY PROGRESS NOTE ---
DATE: 05/28/2019 SUBJECTIVE: The patient is arousable. She is not aware that today is her birthday. OBJECTIVE: Vital Signs: The patient has been afebrile for the last 24 hours. Blood pressure 105/54, heart rate 73, respiratory rate 16, oxygen saturation 93%. HEENT: Pupils are equal and reactive. Oropharynx appears clear. Neck: Supple. Chest: Reveals coarse rhonchi bilaterally. Cardiac: S1, S2. Abdomen: Soft. Extremities: Reveal trace to 1+ peripheral edema. LABORATORY DATA: Sodium 7.23, hemoglobin 11.2, platelet count 201,000. Sodium 142, potassium 2.9, chloride 102, bicarbonate 31, BUN 6, creatinine 0.8. Chest x-ray is unchanged. Arterial blood gas reveals a pH of 7.59, pCO2 of 31, PO2 of 152 on 70%. ASSESSMENT: A 28-year-old with 1. Down syndrome. 2. Acute hypoxemic respiratory failure. 3. Acute hypercapnic respiratory failure. 4. Community-acquired pneumonia. 5. Morbid obesity. DISCUSSION: A 29-year-old with problems outlined above. The patient continues to have bilateral infiltrates and significant oxygen requirements. RECOMMENDATIONS: 1. Continue mechanical ventilation until oxygen allows weaning attempt. 2. Continue tube feeds. 3. Agree with diuresis as tolerated. 4. Continue broad-spectrum antibiotics. 5. Continue DVT prophylaxis and gastric acid suppression. Time spent in critical care management 30+ minutes. cc: Charanjit Ray MD
[2019-05-28] MEDS: MUCOMYST 20% INH SCH ×2 (07:56→19:29)
[2019-05-28] MEDS ORDERED: POTASSIUM CHLORIDE 60 MEQ in NS 500 ML IV ONE (08:51)
--- NOTE | 2019-05-28 12:04 | PROGRESS NOTE ---
DATE: 05/28/2019 SUBJECTIVE: The patient is sedated and intubated. No acute issues noted as per nursing staff overnight. OBJECTIVE: Vital Signs: Temperature 98.2 degrees, heart rate 64, respiratory rate 12, blood pressure 126/52, O2 saturation 94% on mechanical ventilator at FiO2 of 50%. General Examination: This is a 29-year-old, female with a history of Down's syndrome, lying in bed, sedated and intubated. Neck: No JVD noted. No carotid bruits. No lymphadenopathy. No thyromegaly. Cardiovascular Examination: S1 and S2 heard. No murmurs, gallops, or rubs. Regular rate and rhythm. Respiratory Examination: Coarse breath sounds all over both pulmonary mckinnon as well as expiratory wheezing. The patient is not using any accessory muscles or having work of breathing. Abdomen: Soft, nontender, nondistended. Bowel sounds present. No organomegaly. Extremities: No clubbing, cyanosis, or edema. Peripheral pulses present in both legs. Neurological Examination: The patient is sedated and intubated. Laboratory Data: White cell count 7.74, hemoglobin 12.2, hematocrit 39.1, platelets 201,000. ABG shows pH 7.46 with pCO2 of 45, PO2 of 68. That was taken on ventilator at FiO2 of 60%. Sodium 147, potassium 3.3, normal creatinine, calcium 8.0. ASSESSMENT AND PLAN: 1. Acute respiratory failure secondary to multilobar pneumonia. Patient continues to be on vancomycin, Zosyn, and Levaquin. Vancomycin and Levaquin are day #4, cefepime is day #3. The white cell count on this patient is normal. His last ABG on FiO2 of 60% is better. The chest x-ray from today shows a stable x-ray. At this point, we will see when pulmonary wants to start weaning trials on this patient. At this point also, we will continue with nasogastric tube feedings. 2. Left lower lobe pneumonia. Patient is on antibiotics as above. We will continue also with breathing treatments as well. 3. Volume overload. Because of that condition, we ordered an echocardiogram that there was a question of atrial myxoma so cardiology has been consulted to see if we need to do a transesophageal echocardiogram. We will see what they have to say. Currently, this patient is on furosemide 40 mg intravenous every 12 hours. We will continue with the same management. 4. Hypokalemia. We will replete potassium today. 5. Disposition. We will continue to monitor this patient closely. cc: Pastor Rm MD
[2019-05-28] MEDS: LOVENOX SUBQ SCH (15:20)
[2019-05-28] MEDS: PROTONIX IV SCH (15:20)
[2019-05-28] MEDS: LEVAQUIN 500 MG/D5W 500 MG/100 ML IVPB IV SCH (18:17)
[2019-05-28] MEDS: D5W 1,000 ML IV SCH (20:32)
[2019-05-29] MEDS: MAXIPIME 2 GM in NS 100 ML IV SCH ×2 (02:37→14:40)
[2019-05-29] MEDS: DIPRIVAN 1% 1,000 MG/100 ML BOTTLE IV SCH ×7 (02:39→23:29)
[2019-05-29] MEDS: DUONEB (A & A) INH SCH ×6 (03:26→23:12)
[2019-05-29] MEDS: ATIVAN IV PRN ×2 (03:35→17:42)
--- NOTE | 2019-05-29 04:32 | PULMONOLOGY PROGRESS NOTE ---
DATE: 05/28/2019 SUBJECTIVE: The patient remains sedated on mechanical ventilation. She has been afebrile for the last 24 hours. OBJECTIVE: Blood pressure 118/49, heart rate 66, respiratory rate 14, and oxygen saturation 90% HEENT: Pupils are equal and reactive. Oropharynx appears clear. Neck: Supple. Lungs: Chest reveals coarse rhonchi bilaterally. Cardiac: S1-S2. Abdomen: Obese and soft. Extremities: Without edema. LABORATORIES: White blood count 7.74, hemoglobin 12.2, and platelet count 201,000. Sodium 147, potassium 3.3, chloride 103, bicarbonate 29, BUN 9, and creatinine 0.7. Arterial blood gas reveals a pH 7.46, pCO2 45, and PO2 of 68. IMPRESSION: A 29-year-old with: 1. Down's syndrome. 2. Community-acquired pneumonia. 3. Acute hypoxemic respiratory failure. 4. Acute hypercapnic respiratory failure. 5. Morbid obesity. 6. Hypernatremia. PLAN: 1. Continue mechanical ventilation. Her oxygen requirements remain 60% and are too high to allow weaning at this juncture. 2. Continue broad-spectrum antibiotics. 3. Continue diuresis. 4. Increase free water. Her D5 normal saline will be replaced with D5W. 5. Prognosis is guarded TIME SPENT IN CRITICAL CARE MANAGEMENT: 30+ minutes. cc: Charanjit Ray MD
[2019-05-29 05:05] LABS: ALLEN TEST YES; BE 6.6 mmoll (-3.0-3.0); BLOOD TYPE ARTERIAL; METHB 1.1 % (0.0-1.5); O2(CT) 17.3 mL/dL (15.0-23.0); O2HB 95.1 % (95.0-99.0); PCO2(98.6) 44 mmHg (35-45); PO2(98.6) 79 mmHg (60-100); SAMPLE BLOOD; SAO2 97.8 % (95.0-100.0); SRATE 10 BPM; THB 12.9 g/dL (11.5-17.4); TVOL 500 mL; pH(98.6) 7.46 (7.35-7.45)
[2019-05-29 05:06] LABS: MODALITY VENTILATOR
[2019-05-29 05:16] LABS: BASO# 0.03 X1000 (0.0-0.2); BASO% 0.5 % (0.0-0.8); EOS# 0.31 X1000 (0.0-0.7); EOS% 4.8 % (0.0-10.0); HEMATOCRIT 39.7 % (37.0-47.0); HEMOGLOBIN 12.1 g/dL (12.0-16.0); IMM GRAN# 0.15 X1000 (0.0-0.04); IMM GRAN% 2.3 % (0.0-0.5); LYMPH# 1.06 X1000 (1.2-3.4); LYMPH% 16.3 % (20.5-51.1); MCH 28.9 PG (27-31); MCHC 30.5 g/dL (33-37); MONO# 0.33 X1000 (0.11-0.59); MONO% 5.1 % (1.7-9.3); MPV 11.1 FL (7.4-10.4); NEUT# 4.63 X1000 (1.4-6.5); PLT 190 X1000 (130-400); RBC 4.18 XMIL (4.2-5.4); RDW 15.2 % (11.5-14.5); WBC 6.51 X1000 (4.8-10.8)
[2019-05-29 05:53] LABS: AGAP 12; BUN 16 mg/dL (8-22); CALCIUM 8.2 mg/dL (8.8-10.2); CHLORIDE 99 mmol/L (98-107); COSMO 287; CREATININE 0.7 mg/dL (0.5-0.9); ESTIMATED GFR > 60; GLUCOSE 188 mg/dL (70-104); POTASSIUM 3.4 mmol/L (3.5-5.1); SODIUM 141 mmol/L (136-145); TCO2 30 mmol/L (25-35)
[2019-05-29] MEDS: MUCOMYST 20% INH SCH ×2 (07:46→19:20)
--- NOTE | 2019-05-29 07:50 | Diag Imaging Result Doc PS360 ---
EXAM: CHEST-PORTABLE INDICATION: dyspnea TECHNIQUE: One view COMPARISON: 05/28/2019 FINDINGS: Support tubes and lines are in stable positions. Inspiration is suboptimal similar to the previous study. Pulmonary edema and pulmonary venous congestion is approximately stable. No new consolidation is identified. Cardiac silhouette is stable. IMPRESSION: Grossly stable chest. Electronically signed by John Boogie 05/29/2019 7:48 AM
[2019-05-29] MEDS: VANCOMYCIN 1.2 GM in NS 250 ML IV SCH ×2 (11:43→23:29)
[2019-05-29] MEDS: LASIX IV SCH ×2 (11:43→23:29)
[2019-05-29] MEDS: D5W 1,000 ML IV SCH ×2 (11:44→18:20)
--- NOTE | 2019-05-29 12:16 | PROGRESS NOTE ---
DATE: 05/29/2019 SUBJECTIVE: Patient continues to be sedated and intubated. She is on propofol. No acute issues noted as per the nursing staff overnight. OBJECTIVE: Vital Signs: Temperature 98.1 degrees, heart rate 65, respiratory 14, blood pressure 115/62, O2 saturation 93% on mechanical ventilator. General Examination: This is a 29-year-old female with history of Down syndrome lying in bed in no acute distress. Sedated and intubated. Cardiovascular: S1, S2 heard. No murmurs, gallops, or rubs. Regular rate and rhythm. Respiratory: Coarse breath sounds noted all over both pulmonary mckinnon as well as expiratory wheezing. Patient is not using any accessory muscles or having work of breathing. Abdomen: Soft, nontender to palpation. Nondistended. Bowel sounds present. No organomegaly. Extremities: No clubbing, cyanosis, or edema. Peripheral pulses present in both legs. Neurological: Patient is sedated and intubated. LABORATORY DATA: White cell count 6.41, hemoglobin 12.1, hematocrit 39.7. ABG shows pH 7.46 with pCO2 44, PO2 79 on ventilator FiO2 of 50%. BMP remarkable for creatinine 4, potassium 3.4. ASSESSMENT AND PLAN: 1. Acute respiratory failure secondary to multilobar pneumonia. The patient continues to be on vancomycin, Zosyn and Levaquin. Currently vancomycin and Levaquin are day #5 today and cefepime #4. White cell count continues to be within normal limits and the patient is not spiking any fever. She is having a good gas exchange according to the last ABG that we have and she is on FiO2 of 50%. The chest x-ray from today showed a stable x-ray, so at this point, we will see when Pulmonary will decide to start weaning trials on this patient. 2. Left lower lobe pneumonia. Patient on antibiotics as above. We will continue to provide also DuoNeb every 4 hours. 3. Nutritional status. Patient will continue with NG tube feedings at this point. 4. Volume overload. Patient continues to be on furosemide 40 mg IV q.12 hours. We will continue with the same management. 5. Because there was a suspicion for a volume overload, an echo has been ordered and it shows a possible atrial myxoma. I have talked with Dr. Winters from Cardiology and he thinks that this is probably an artifact, so this patient does not need to have any UMAGN at this point, and actually it is not going to change the management of this patient. They recommend to repeat an echocardiogram once she is more stable. So at this point, they have signed off. 6. Hypokalemia. The potassium is a little bit low today. We will replenish that. 7. Disposition: We will continue to monitor this patient closely here in the intensive care unit. cc: Pastor Rm MD MTDD
[2019-05-29] MEDS: PROTONIX IV SCH (16:37)
[2019-05-29] MEDS: SODIUM CHLORIDE 0.9% INJ SCH (16:37)
[2019-05-29] MEDS: LOVENOX SUBQ SCH (16:38)
[2019-05-29] MEDS: LEVAQUIN 500 MG/D5W 500 MG/100 ML IVPB IV SCH (18:19)
[2019-05-30] MEDS: DIPRIVAN 1% 1,000 MG/100 ML BOTTLE IV SCH ×8 (02:22→21:54)
[2019-05-30] MEDS: MAXIPIME 2 GM in NS 100 ML IV SCH ×2 (02:22→16:00)
[2019-05-30] MEDS: DUONEB (A & A) INH SCH ×6 (03:19→23:05)
[2019-05-30 04:31] LABS: ALLEN TEST YES; BE 9.2 mmoll (-3.0-3.0); BLOOD TYPE ARTERIAL; METHB 0.8 % (0.0-1.5); O2(CT) 16.1 mL/dL (15.0-23.0); O2HB 92.5 % (95.0-99.0); PO2(98.6) 64 mmHg (60-100); SAMPLE BLOOD; SAO2 95.1 % (95.0-100.0); SRATE 10 BPM; THB 12.4 g/dL (11.5-17.4); TVOL 500 mL; pH(98.6) 7.43 (7.35-7.45)
[2019-05-30 04:33] LABS: MODALITY VENTILATOR; PCO2(98.6) 53 mmHg (35-45)
[2019-05-30] MEDS: D5W 1,000 ML IV SCH ×2 (05:45→21:55)
[2019-05-30 07:27] LABS: AGAP 15; BUN 17 mg/dL (8-22); CALCIUM 8.1 mg/dL (8.8-10.2); CHLORIDE 95 mmol/L (98-107); COSMO 279; CREATININE 0.7 mg/dL (0.5-0.9); ESTIMATED GFR > 60; GLUCOSE 164 mg/dL (70-104); POTASSIUM 4.3 mmol/L (3.5-5.1); SODIUM 137 mmol/L (136-145); TCO2 27 mmol/L (25-35)
[2019-05-30] MEDS: MUCOMYST 20% INH SCH ×2 (07:59→19:30)
[2019-05-30] MEDS: ATIVAN IV PRN (08:10)
[2019-05-30 09:53] LABS: BASO# 0.06 X1000 (0.0-0.2); BASO% 0.8 % (0.0-0.8); EOS# 0.43 X1000 (0.0-0.7); EOS% 5.4 % (0.0-10.0); HEMOGLOBIN 11.5 g/dL (12.0-16.0); IMM GRAN# 0.12 X1000 (0.0-0.04); IMM GRAN% 1.5 % (0.0-0.5); LYMPH# 1.28 X1000 (1.2-3.4); LYMPH% 16.1 % (20.5-51.1); MCHC 31.1 g/dL (33-37); MCV 93.4 FL (81-99); MONO% 7.5 % (1.7-9.3); MPV 10.8 FL (7.4-10.4); NEUT# 5.48 X1000 (1.4-6.5); NEUT% 68.7 % (42.2-75.2); PLT 202 X1000 (130-400); RBC 3.96 XMIL (4.2-5.4); RDW 14.6 % (11.5-14.5); WBC 7.97 X1000 (4.8-10.8)
[2019-05-30 10:18] LABS: ANISOCYTOSIS 1+; BASO 1 % (0-1); EOS 7 % (1-10); LARGE PLATELETS OCCASIONAL; LYMPHS 15 % (21-51); MONO 8 % (1-9); NRBC 2 % (0-0); SEGS 69 % (42-75)
--- NOTE | 2019-05-30 10:58 | PROGRESS NOTE ---
DATE: 05/30/2019 SUBJECTIVE: This is a 29-year-old. She has no major medical problems. She is in a half-way. She has Down syndrome. She had significant shortness of breath, brought here, was intubated, found to have pneumonia, respiratory failure. She has hypertension and diabetes mellitus and has been on the ventilator. Her nurses state she is about the same as yesterday. OBJECTIVE: Temperature 97.9 degrees, remains afebrile, pulse 69, respirations 19, blood pressure 106/45. Pupils are equal and round. Lungs are clear in all lung mckinnon. Cardiovascular: Regular rhythm and rate without murmur or S3. Urine output was 4600 mL, so good urine output. IMAGING: Chest x-ray from yesterday, grossly stable chest. Support tubes and lines in stable position. Inspiration is suboptimal, similar to previous study. Pulmonary edema and pulmonary venous congestion approximately stable. ASSESSMENT AND PLAN: 1. Down syndrome, community-acquired pneumonia, acute hypoxemic respiratory failure, acute hypercapnic respiratory failure, morbid obesity, and hypernatremia. Continue mechanical ventilator, oxygen requirement at 60% is too high to allow weaning but continue to try to pursue weaning off the ventilator. 2. Broad-spectrum antibiotics continue. 3. Continue diuresis. 4. She is on D5 normal saline to replace her D5W. Prognosis is guarded. REVIEW OF HER ORDERS: She is getting acetylcysteine 20% 3 mL inhalation twice a day, cefepime 2 g IV q.12, Lovenox 40 mg subcutaneous q.24 hours, Levaquin 500 mg IV q.24 hours, Protonix 40 mg IV daily, vancomycin 1.2 g IV q.12, and she is on Diprivan. REVIEW OF LABS: From this morning, white count 7970, hematocrit is 37, platelet count is 202,000. Chemistry: Sodium 137, potassium 4.3, chloride 95, BUN 17, creatinine 0.7. Blood sugars 121, 114, 164, 126. cc: James Farias MD
[2019-05-30] MEDS: LASIX IV SCH ×2 (11:38→22:00)
[2019-05-30] MEDS: VANCOMYCIN 1.2 GM in NS 250 ML IV SCH ×2 (11:38→21:59)
[2019-05-30] MEDS: LOVENOX SUBQ SCH (16:00)
[2019-05-30] MEDS: PROTONIX IV SCH (16:00)
[2019-05-30] MEDS: LEVAQUIN 500 MG/D5W 500 MG/100 ML IVPB IV SCH (18:16)
[2019-05-31] MEDS: DIPRIVAN 1% 1,000 MG/100 ML BOTTLE IV SCH ×9 (00:50→23:25)
[2019-05-31] MEDS: DUONEB (A & A) INH SCH ×6 (03:07→22:44)
[2019-05-31] MEDS: MAXIPIME 2 GM in NS 100 ML IV SCH ×2 (03:10→14:20)
[2019-05-31 04:36] LABS: ALLEN TEST YES; BE 11.5 mmoll (-3.0-3.0); BLOOD TYPE ARTERIAL; HCO3-(ACT) 33.8 mmoll (20.0-26.0); METHB 0.4 % (0.0-1.5); O2(CT) 15.2 mL/dL (15.0-23.0); O2HB 92.1 % (95.0-99.0); PO2(98.6) 58 mmHg (60-100); SAMPLE BLOOD; SAO2 95.4 % (95.0-100.0); SRATE 10 BPM; THB 11.7 g/dL (11.5-17.4); TVOL 500 mL; pH(98.6) 7.38 (7.35-7.45)
[2019-05-31 04:38] LABS: MODALITY VENTILATOR; PCO2(98.6) 66 mmHg (35-45)
[2019-05-31 06:43] LABS: BASO# 0.07 X1000 (0.0-0.2); BASO% 0.9 % (0.0-0.8); EOS# 0.47 X1000 (0.0-0.7); HEMATOCRIT 38.1 % (37.0-47.0); HEMOGLOBIN 11.9 g/dL (12.0-16.0); IMM GRAN# 0.11 X1000 (0.0-0.04); IMM GRAN% 1.4 % (0.0-0.5); LYMPH# 1.25 X1000 (1.2-3.4); MCH 29.2 PG (27-31); MCHC 31.2 g/dL (33-37); MCV 93.6 FL (81-99); MONO# 0.51 X1000 (0.11-0.59); MONO% 6.5 % (1.7-9.3); MPV 11.5 FL (7.4-10.4); NEUT# 5.38 X1000 (1.4-6.5); NEUT% 69.2 % (42.2-75.2); PLT 217 X1000 (130-400); RBC 4.07 XMIL (4.2-5.4); RDW 14.6 % (11.5-14.5); WBC 7.79 X1000 (4.8-10.8)
[2019-05-31 06:51] LABS: AGAP 14; BUN 20 mg/dL (8-22); CALCIUM 8.5 mg/dL (8.8-10.2); CHLORIDE 96 mmol/L (98-107); COSMO 286; CREATININE 0.7 mg/dL (0.5-0.9); ESTIMATED GFR > 60; GLUCOSE 175 mg/dL (70-104); POTASSIUM 3.6 mmol/L (3.5-5.1); SODIUM 140 mmol/L (136-145); TCO2 30 mmol/L (25-35)
[2019-05-31 07:21] LABS: EOS 3 % (1-10); LYMPHS 11 % (21-51); MONO 9 % (1-9); SEGS 77 % (42-75)
--- NOTE | 2019-05-31 08:04 | PROGRESS NOTE ---
DATE: 05/31/2019 SUBJECTIVE: Ms. Chamberlain is on the ventilator still. She appears comfortable. She is sedated. OBJECTIVE: Vital Signs: Temperature 98.5 degrees, pulse 65, respirations 13, blood pressure 106/43. HEENT: Pupils are equal and round. Lungs: Clear in all lung mckinnon. Cardiovascular: Regular rate without murmur or S3. Urine output is 5 L. LABORATORY DATA: Blood sugar 126, 178, 165. Her chest x-ray from this morning: Support tubes and lines are still in stable positions. Inspiration appears suboptimal, similar to previous study. Pulmonary venous congestion appears stable. No new consolidation that I can identify. ASSESSMENT: 1. Down syndrome. 2. Community-acquired pneumonia. 3. Acute hypoxemic respiratory failure. 4. Acute hypercapnic respiratory failure. 5. Morbid obesity. 6. Hyponatremia. PLAN: 1. Continue mechanical ventilator. Oxygen requirement 60% was too high to allow weaning so continue trying to get her FiO2 down. 2. Broad-spectrum antibiotics, continue. 3. Continue diuresis. 4. She is on D5 normal saline. Replace the fluids. Continue her current rate. 5. On cefepime 2 g IV q.12, Lasix 40 mg IV q.12, Levaquin 500 mg IV daily, Protonix 40 mg IV daily, vancomycin 1.2 g IV q.12. cc: James Farias MD
--- NOTE | 2019-05-31 08:06 | Diag Imaging Result Doc PS360 ---
CHEST-PORTABLE - 05/31/2019 INDICATION: Patient Intubated COMPARISON: 05/29/2019 FINDINGS: Support tubes are stable and in good position. There is worsening opacification of the right lower lobe with loss of the right hemidiaphragm. There is improved aeration of the left lower lobe with better visualization of the diaphragm. This strongly suggests shifting atelectasis. Otherwise no change in the cardiomegaly, pulmonary vascular congestion, and pulmonary edema. Stable pleural effusions. IMPRESSION: Shifting atelectasis in the lung bases, overall no change from prior. Electronically signed by Nitin Barillas 05/31/2019 8:03 AM
[2019-05-31] MEDS: MUCOMYST 20% INH SCH ×2 (08:07→19:35)
[2019-05-31] MEDS: HALDOL IV PRN (09:01)
[2019-05-31] MEDS: VANCOMYCIN 1.2 GM in NS 250 ML IV SCH ×2 (10:50→22:50)
[2019-05-31] MEDS: LASIX IV SCH ×2 (10:50→22:50)
[2019-05-31] MEDS: LOVENOX SUBQ SCH (15:19)
[2019-05-31] MEDS: PROTONIX IV SCH (15:19)
[2019-05-31] MEDS: DULCOLAX PR PRN (17:57)
[2019-05-31] MEDS: LEVAQUIN 500 MG/D5W 500 MG/100 ML IVPB IV SCH (18:34)
[2019-05-31] MEDS: D5W 1,000 ML IV SCH (18:34)
[2019-06-01] MEDS: MAXIPIME 2 GM in NS 100 ML IV SCH ×2 (03:09→16:27)
[2019-06-01] MEDS: D5W 1,000 ML IV SCH ×3 (03:09→18:04)
[2019-06-01] MEDS: DIPRIVAN 1% 1,000 MG/100 ML BOTTLE IV SCH ×8 (03:10→22:35)
[2019-06-01] MEDS: DUONEB (A & A) INH SCH ×6 (03:18→23:23)
[2019-06-01 04:49] LABS: ALLEN TEST YES; BE 10.7 mmoll (-3.0-3.0); BLOOD TYPE ARTERIAL; HCO3-(ACT) 33.1 mmoll (20.0-26.0); METHB 0.9 % (0.0-1.5); O2(CT) 16.4 mL/dL (15.0-23.0); O2HB 91.2 % (95.0-99.0); PO2(98.6) 61 mmHg (60-100); SAMPLE BLOOD; SAO2 93.9 % (95.0-100.0); SRATE 14 BPM; THB 12.8 g/dL (11.5-17.4); TVOL 500 mL; pH(98.6) 7.46 (7.35-7.45)
[2019-06-01 04:50] LABS: MODALITY VENTILATOR; PCO2(98.6) 51 mmHg (35-45)
[2019-06-01 05:09] LABS: BASO# 0.08 X1000 (0.0-0.2); BASO% 0.9 % (0.0-0.8); EOS# 0.42 X1000 (0.0-0.7); EOS% 4.8 % (0.0-10.0); HEMATOCRIT 38.8 % (37.0-47.0); HEMOGLOBIN 12.3 g/dL (12.0-16.0); IMM GRAN# 0.09 X1000 (0.0-0.04); LYMPH# 1.22 X1000 (1.2-3.4); LYMPH% 14.1 % (20.5-51.1); MCHC 31.7 g/dL (33-37); MCV 91.5 FL (81-99); MONO% 8.1 % (1.7-9.3); MPV 10.8 FL (7.4-10.4); NEUT# 6.15 X1000 (1.4-6.5); NEUT% 71.1 % (42.2-75.2); PLT 265 X1000 (130-400); RBC 4.24 XMIL (4.2-5.4); RDW 14.3 % (11.5-14.5); WBC 8.66 X1000 (4.8-10.8)
[2019-06-01 05:20] LABS: AGAP 14; BUN 23 mg/dL (8-22); CALCIUM 8.6 mg/dL (8.8-10.2); CHLORIDE 95 mmol/L (98-107); COSMO 286; CREATININE 0.8 mg/dL (0.5-0.9); ESTIMATED GFR > 60; GLUCOSE 191 mg/dL (70-104); POTASSIUM 3.1 mmol/L (3.5-5.1); SODIUM 139 mmol/L (136-145); TCO2 30 mmol/L (25-35)
--- NOTE | 2019-06-01 07:07 | Diag Imaging Result Doc PS360 ---
EXAM: CHEST-PORTABLE 06/01/2019 HISTORY: Mechanical Ventilation TECHNIQUE: AP portable upright at 0526 COMMENT: There is an endotracheal tube with its tip at the thoracic inlet and an NG tube which passes below the diaphragm. There is interstitial pulmonary edema. There is bibasilar atelectasis versus pneumonia. The latter has worsened since 05/31/2019. This may be associated with bilateral pleural effusions. The heart size is enlarged. IMPRESSION: Cardiomegaly and pulmonary edema with probable bilateral pleural effusions. Atelectasis versus pneumonia in both lower lobes. Electronically signed by Will Penn 06/01/2019 7:05 AM
[2019-06-01] MEDS: MUCOMYST 20% INH SCH ×2 (07:33→19:31)
[2019-06-01] MEDS: VANCOMYCIN 1.2 GM in NS 250 ML IV SCH (12:01)
[2019-06-01] MEDS: LASIX IV SCH ×2 (12:02→22:40)
--- NOTE | 2019-06-01 12:25 | PROGRESS NOTE ---
DATE: 06/01/2019 SUBJECTIVE: Ms. Chamberlain is still on ventilator, still at 60% FiO2. Appears comfortable. OBJECTIVE: Temperature 98.2 degrees, remains afebrile, pulse 67, respirations 14, blood pressure 138/59. Pupils are equal and round. Lungs are clear anterolateral in all lung mckinnon. Cardiovascular Examination: Regular rhythm and rate without murmur or S3. Abdomen is soft, nondistended. Trace edema in both ankles. Urine output is 5700 mL. Blood sugars 136, 150, 176. Chest x-ray, cardiomegaly, pulmonary edema, probable bilateral pleural effusions, atelectasis versus pneumonia in both lower lobes. ASSESSMENT AND PLAN: 1. Down syndrome. 2. Community-acquired pneumonia. Looks like it is bilateral basilar pneumonia. Continue ventilator support. Continue broad-spectrum antibiotics. Attempting to wean. Try and get her FiO2 down. 3. Acute hypoxemic respiratory failure and acute hypercapnic respiratory failure. 4. Morbid obesity. 5. Hyponatremia. LABORATORY DATA: This morning, white count is 8660, hematocrit is 38, platelet count 265,000. Sodium 139, potassium 3.1, chloride 95, BUN 23, creatinine 0.8. Blood sugars 136, 140, 191, and 150. REVIEW OF HER ORDERS: Getting Tylenol 650 mg p.o. q.6 hours p.r.n., acetylcysteine 20% inhalations twice a day, albuterol-ipratropium p.r.n. q.2 hours and then scheduled q.4 hours. We started a Dulcolax suppository daily. She has not had a bowel movement in several days. Cefepime 2 g IV q.12, Lasix 40 mg IV q.12, levofloxacin 500 mg IV q.24 hours, Protonix 40 mg q.24 hours, vancomycin 1.2 g IV q.12. cc: James Farias MD
[2019-06-01 13:18] LABS: INR 1.1; PROTIME 14.4 Seconds (11.0-16.0)
[2019-06-01] MEDS ORDERED: NS 250 ML ONE ×2 (14:25→16:00)
[2019-06-01] MEDS: PROTONIX IV SCH (16:27)
[2019-06-01] MEDS: LOVENOX SUBQ SCH (16:27)
[2019-06-01] MEDS: SODIUM CHLORIDE 0.9% INJ SCH (16:27)
--- NOTE | 2019-06-01 16:28 | Diag Imaging Result Doc PS360 ---
EXAM: CHEST-PORTABLE INDICATION: PICC line placement TECHNIQUE: One view COMPARISON: 06/01/2019 FINDINGS: The ET tube is in stable position. There is a newly placed left PICC line. The course of the PICC line is atypical. It courses along the left side of the mediastinum. 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 The PICC line is probably in this accessory SVC on the left near the atriocaval junction. Please correlate with venous return. Otherwise, the chest is essentially stable as compared to the prior study performed earlier today. IMPRESSION: Atypical course of the newly placed left PICC line. Please see above discussion. Electronically signed by John Boogie 06/01/2019 4:26 PM
[2019-06-01] MEDS: LEVAQUIN 500 MG/D5W 500 MG/100 ML IVPB IV SCH (18:18)
[2019-06-01] MEDS: HALDOL IV PRN (21:26)
[2019-06-02] MEDS: DIPRIVAN 1% 1,000 MG/100 ML BOTTLE IV SCH ×7 (01:08→20:39)
[2019-06-02] MEDS: DUONEB (A & A) INH SCH ×6 (03:25→23:17)
[2019-06-02] MEDS: MAXIPIME 2 GM in NS 100 ML IV SCH ×2 (04:09→16:34)
--- NOTE | 2019-06-02 05:56 | PULMONOLOGY PROGRESS NOTE ---
DATE: 06/01/2019 SUBJECTIVE: The patient is sedated, but responds to stimuli. OBJECTIVE: Vital Signs: The patient has been afebrile for the last 24 hours. Blood pressure is 124/49, heart rate is 68, respiratory rate is 9, oxygen saturation is 94%. HEENT:: Pupils are equal and reactive. Oropharynx is clear. Neck: Supple. Chest: reveals coarse rhonchi bilaterally. Cardiac: S1, S2. Abdomen: Obese and soft with positive bowel sounds. Extremities: Reveal 1+ peripheral edema with some apparent decrease over the last 72 hours. IMAGING: Chest x-ray reveals cardiomegaly with bibasilar pneumonia. LABORATORY DATA: Arterial blood gas reveals a pH of 7.46, pCO2 of 51, pO2 of 61. MICROBIOLOGY: Reveals no new data. IMPRESSION: A 29-year-old with: 1. Community-acquired pneumonia. 2. Acute hypoxemic respiratory failure. 3. Acute hypercapnic respiratory failure. 4. Obesity. 5. Down syndrome. PLAN: 1. Continue mechanical ventilation. She remains too hypoxemic to wean from mechanical ventilation at this juncture. 2. Continue broad-spectrum antibiotics. 3. Continue current fluid and diuretics. 4. Daily vent weaning. TIME SPENT: Time spent in critical care management is 30+ minutes. cc: Charanjit Ray MD
[2019-06-02] MEDS: MUCOMYST 20% INH SCH ×2 (07:42→19:23)
--- NOTE | 2019-06-02 09:42 | Diag Imaging Result Doc PS360 ---
EXAM: CHEST-1 VIEW 06/02/2019 HISTORY: pneumonia TECHNIQUE: AP portable upright at 0919 COMMENT: There is an endotracheal tube with its tip at thoracic inlet. There is an NG tube with its tip below the diaphragm. There is improvement in the pulmonary edema seen on 06/01/2019. IMPRESSION: Improved pulmonary edema. The possibility of superimposed pneumonia cannot be excluded. Electronically signed by Will Penn 06/02/2019 9:40 AM
[2019-06-02 10:48] LABS: ALLEN TEST NO; BE 9.6 mmoll (-3.0-3.0); BLOOD TYPE ARTERIAL; HCO3-(ACT) 32.4 mmoll (20.0-26.0); METHB 0.9 % (0.0-1.5); O2(CT) 15.4 mL/dL (15.0-23.0); O2HB 94.4 % (95.0-99.0); PCO2(98.6) 49 mmHg (35-45); PO2(98.6) 71 mmHg (60-100); SAMPLE BLOOD; SAO2 96.8 % (95.0-100.0); SRATE 10 BPM; THB 11.6 g/dL (11.5-17.4); TVOL 700 mL; pH(98.6) 7.46 (7.35-7.45)
[2019-06-02 10:49] LABS: MODALITY VENTILATOR
[2019-06-02 11:24] LABS: AGAP 15; ALB/GLOB RATIO 0.8; ALKALINE PHOSPHATASE 49 U/L (32-104); BUN 24 mg/dL (8-22); CALCIUM 8.7 mg/dL (8.8-10.2); CHLORIDE 94 mmol/L (98-107); COSMO 284; CREATININE 0.7 mg/dL (0.5-0.9); ESTIMATED GFR > 60; GLUCOSE 209 mg/dL (70-104); GOT 12 U/L (10-30); GPT 12 U/L (10-36); POTASSIUM 3.1 mmol/L (3.5-5.1); SODIUM 137 mmol/L (136-145); TCO2 28 mmol/L (25-35); TOTAL BILIRUBIN 0.17 mg/dL (0.20-1.00); TOTAL PROTEIN 6.9 g/dL (6.3-8.3)
[2019-06-02 11:25] LABS: BASO# 0.09 X1000 (0.0-0.2); BASO% 1.1 % (0.0-0.8); EOS# 0.44 X1000 (0.0-0.7); EOS% 5.4 % (0.0-10.0); HEMATOCRIT 36.4 % (37.0-47.0); HEMOGLOBIN 11.4 g/dL (12.0-16.0); IMM GRAN# 0.07 X1000 (0.0-0.04); IMM GRAN% 0.9 % (0.0-0.5); LYMPH# 1.43 X1000 (1.2-3.4); LYMPH% 17.6 % (20.5-51.1); MCH 28.8 PG (27-31); MCHC 31.3 g/dL (33-37); MCV 91.9 FL (81-99); MONO# 0.66 X1000 (0.11-0.59); MONO% 8.1 % (1.7-9.3); NEUT# 5.43 X1000 (1.4-6.5); NEUT% 66.9 % (42.2-75.2); PLT 274 X1000 (130-400); RBC 3.96 XMIL (4.2-5.4); RDW 14.3 % (11.5-14.5); WBC 8.12 X1000 (4.8-10.8)
[2019-06-02] MEDS: LASIX IV SCH (11:29)
[2019-06-02] MEDS: VANCOMYCIN 1.2 GM in NS 250 ML IV SCH (11:29)
[2019-06-02] MEDS: D5W 1,000 ML IV SCH (11:29)
[2019-06-02 11:31] LABS: BANDS 6 % (0-1); EOS 6 % (1-10); LYMPHS 18 % (21-51); MONO 2 % (1-9); SEGS 68 % (42-75)
[2019-06-02] MEDS: HALDOL IV PRN (13:06)
[2019-06-02] MEDS ORDERED: POTASSIUM CHLORIDE 40 MEQ/SWI 40 MEQ/100 ML IVPB IV ONE (13:09)
--- NOTE | 2019-06-02 13:26 | PROGRESS NOTE ---
DATE: 06/02/2019 SUBJECTIVE: Ms. Chamberlain is on the ventilator, sedated, appears comfortable. OBJECTIVE: Vital Signs: Temp 98 degrees, pulse 60, respirations 10, blood pressure 126/55. HEENT: Pupils are equal and round. Lungs: Clear in all lung mckinnon. Cardiovascular: Regular rhythm and rate without murmur or S3. Urine output is 5200 mL. IMAGING: Chest x-ray: Improved pulmonary edema, possibly superimposed pneumonia could not be excluded. ASSESSMENT AND PLAN: 1. Community-acquired pneumonia. Continue mechanical ventilation. Remains too hypoxemic to wean from mechanical ventilator at this juncture. 2. Acute hypoxemic respiratory failure. 3. Acute hypercapnic respiratory failure. 4. Underlying obesity. 5. Down syndrome. Continue present measures. She is on cefepime 2 grams intravenously every 2 hours, and vancomycin 1.2 grams intravenously every 18 hours. On review of her lab from today, I do not see any change. cc: James Farias MD
[2019-06-02] MEDS: PROTONIX IV SCH (16:34)
[2019-06-02] MEDS: LOVENOX SUBQ SCH (16:34)
[2019-06-02] MEDS: LEVAQUIN 500 MG/D5W 500 MG/100 ML IVPB IV SCH (18:15)
[2019-06-02] MEDS ORDERED: LASIX IV ONE (18:26)
[2019-06-03] MEDS: DIPRIVAN 1% 1,000 MG/100 ML BOTTLE IV SCH ×5 (00:08→11:06)
[2019-06-03] MEDS: LASIX IV SCH ×3 (00:13→22:18)
[2019-06-03] MEDS: D5W 1,000 ML IV SCH (02:53)
[2019-06-03] MEDS: DUONEB (A & A) INH SCH ×6 (03:36→23:11)
[2019-06-03 04:46] LABS: ALLEN TEST YES; BE 8.1 mmoll (-3.0-3.0); BLOOD TYPE ARTERIAL; HCO3-(ACT) 31.2 mmoll (20.0-26.0); METHB 1.4 % (0.0-1.5); O2(CT) 16.6 mL/dL (15.0-23.0); O2HB 93.5 % (95.0-99.0); PCO2(98.6) 45 mmHg (35-45); PO2(98.6) 70 mmHg (60-100); SAMPLE BLOOD; SAO2 96.6 % (95.0-100.0); SRATE 10 BPM; THB 12.6 g/dL (11.5-17.4); TVOL 700 mL; pH(98.6) 7.47 (7.35-7.45)
[2019-06-03 04:47] LABS: MODALITY VENTILATOR
[2019-06-03] MEDS: MAXIPIME 2 GM in NS 100 ML IV SCH ×2 (04:48→16:02)
[2019-06-03] MEDS: VANCOMYCIN 1.2 GM in NS 250 ML IV SCH ×2 (04:49→22:18)
--- NOTE | 2019-06-03 05:30 | PULMONOLOGY PROGRESS NOTE ---
DATE: 06/02/2019 SUBJECTIVE: The patient is sedated but arousable. She appears to be comfortable on the vent. OBJECTIVE: Vital Signs: The patient has been afebrile for the last 24 hours. Blood pressure 112/42, heart rate 62, respiratory rate 16, and oxygen saturation 93%. HEENT: Pupils are equal and reactive. Oropharynx appears clear but limited view. Neck is supple. Chest reveals rhonchi bilaterally. Cardiac: S1-S2. Abdomen: Obese and soft. Extremities: Reveal 1+ peripheral edema. LABORATORIES: Chest x-ray reveals some improvement in the lung bases. Microbiology reveals no new data. Sodium 137, potassium 3.1, chloride 94, bicarb 28, BUN 24, creatinine 0.7, and glucose 209. White blood count 8.12, hemoglobin 11.4, and platelet count 274,000. IMPRESSION: A 29-year-old with: 1. Community-acquired pneumonia. 2. Acute hypoxemic respiratory failure. 3. Acute hypercapnic respiratory failure. 4. Obesity. 5. Down's syndrome. PLAN: 1. Continue daily weaning attempts. She remains on high oxygen concentrations. 2. Continue broad-spectrum antibiotics. 3. Continue diuretics. TIME SPENT: Critical care management 30+ minutes. cc: Charanjit Ray MD
--- NOTE | 2019-06-03 07:19 | Diag Imaging Result Doc PS360 ---
EXAM: CHEST-PORTABLE HISTORY: Vent Protocol TECHNIQUE: Single view COMPARISON: 06/02/2019 FINDINGS: No change in the endotracheal tube, nasogastric tube, or the right-sided PICC line. No cardiomegaly. There are increased interstitial markings in the mid lungs. These are slightly more prominent in the left lung than they were on the prior study. IMPRESSION: Mild interval worsening Electronically signed by Solomon Hutchison 06/03/2019 7:17 AM
[2019-06-03] MEDS: MUCOMYST 20% INH SCH ×2 (07:42→19:36)
--- NOTE | 2019-06-03 10:07 | PROGRESS NOTE ---
DATE: 06/03/2019 SUBJECTIVE: Ms. Chamberlain is still on ventilator. Really no change. She appears comfortable. OBJECTIVE: Vital signs: Temp 98.1 degrees, pulse 60, respirations 10, blood pressure 118/57. HEENT: Pupils are equal and round. Lungs: Clear in all lung mckinnon. Cardiovascular: Regular rhythm and rate without murmur or S3. Urine output: 4300 mL. IMAGING: Chest x-ray, mild interval of worsening. No change in endotracheal tube or nasogastric tube placement. She had a right-sided PICC line placed recently. Increased interstitial markings in the mid lungs, slightly more prominent in the left lung than they were on prior study. ASSESSMENT AND PLAN: 1. Community-acquired pneumonia. Continue daily weaning attempts to try to decrease O2 requirement under Dr. Ray's direction. 2. Acute hypoxemic respiratory failure. 3. Acute hypercapnic respiratory failure. 4. Obesity. 5. Down syndrome. cc: James Farias MD
[2019-06-03 10:08] LABS: ALB/GLOB RATIO 0.8; ALBUMIN 3.1 g/dL (3.5-5.0); ALKALINE PHOSPHATASE 48 U/L (32-104); BUN 33 mg/dL (8-22); CALCIUM 8.8 mg/dL (8.8-10.2); CREATININE 0.8 mg/dL (0.5-0.9); ESTIMATED GFR > 60; GLUCOSE 192 mg/dL (70-104); GOT 12 U/L (10-30); GPT 11 U/L (10-36); TCO2 27 mmol/L (25-35); TOTAL BILIRUBIN 0.17 mg/dL (0.20-1.00); TOTAL PROTEIN 6.9 g/dL (6.3-8.3)
[2019-06-03 10:17] LABS: CHLORIDE 93 mmol/L (98-107); POTASSIUM 3.5 mmol/L (3.5-5.1); SODIUM 136 mmol/L (136-145)
[2019-06-03 10:20] LABS: AGAP 16; COSMO 284
[2019-06-03] MEDS ORDERED: CALMOSEPTINE OINTMENT TOP PRN (13:19)
[2019-06-03] MEDS: TYLENOL PO PRN (13:51)
[2019-06-03 14:12] LABS: ALLEN TEST NO; BE 7.8 mmoll (-3.0-3.0); BLOOD TYPE ARTERIAL; HCO3-(ACT) 30.9 mmoll (20.0-26.0); METHB 1.2 % (0.0-1.5); O2(CT) 16.5 mL/dL (15.0-23.0); O2HB 92.1 % (95.0-99.0); PCO2(98.6) 46 mmHg (35-45); PO2(98.6) 63 mmHg (60-100); SAMPLE BLOOD; SAO2 95.1 % (95.0-100.0); THB 12.7 g/dL (11.5-17.4); pH(98.6) 7.46 (7.35-7.45)
[2019-06-03 14:13] LABS: MODALITY VENTILATOR
[2019-06-03] MEDS ORDERED: DIPRIVAN 1% 1,000 MG/100 ML BOTTLE ONE (15:48)
[2019-06-03] MEDS: PROTONIX IV SCH (16:02)
[2019-06-03] MEDS: SODIUM CHLORIDE 0.9% INJ SCH (16:02)
[2019-06-03] MEDS: LOVENOX SUBQ SCH (16:03)
[2019-06-03] MEDS ORDERED: DIPRIVAN 1% ONE (16:12)
[2019-06-03] MEDS ORDERED: QUELICIN (DOSE) ONE (16:13)
[2019-06-03] MEDS ORDERED: XYLOCAINE-MPF 2% ONE (16:13)
[2019-06-03] MEDS ORDERED: DIPRIVAN 1% 1,000 MG/100 ML BOTTLE IV SCH (16:15)
--- NOTE | 2019-06-03 16:43 | Diag Imaging Result Doc PS360 ---
CHEST-1 VIEW - 06/03/2019 4:15 PM INDICATION: ETT placement COMPARISON: 5:01 AM FINDINGS: The right PICC line is now directed into the right internal jugular vein and is in fact-over on itself, with the tip in the lower brachiocephalic vein. This has changed since this morning's exam. The endotracheal tube and nasogastric tube are in good position. Stable cardiomegaly. There is slight worsening diffuse bilateral infiltrates suggesting pulmonary edema. IMPRESSION: 1. Worsening bilateral pulmonary edema. 2. The right PICC line has changed configuration and is now doubled over in the right internal jugular vein. Electronically signed by Nitin Barillas 06/03/2019 4:41 PM
[2019-06-03] MEDS: ATIVAN IV PRN (18:45)
[2019-06-03] MEDS ORDERED: MORPHINE ONE (18:47)
[2019-06-03] MEDS: LEVAQUIN 500 MG/D5W 500 MG/100 ML IVPB IV SCH (19:15)
[2019-06-03] MEDS: MORPHINE IV PRN (19:57)
[2019-06-04] MEDS: ATIVAN IV PRN ×2 (00:53→22:58)
[2019-06-04] MEDS: MAXIPIME 2 GM in NS 100 ML IV SCH ×2 (03:10→16:19)
[2019-06-04] MEDS: DUONEB (A & A) INH SCH ×6 (03:12→23:07)
[2019-06-04 04:52] LABS: ALLEN TEST YES; BE 6.9 mmoll (-3.0-3.0); BLOOD TYPE ARTERIAL; HCO3-(ACT) 30.2 mmoll (20.0-26.0); METHB 0.9 % (0.0-1.5); O2(CT) 17.4 mL/dL (15.0-23.0); O2HB 93.5 % (95.0-99.0); PCO2(98.6) 49 mmHg (35-45); PO2(98.6) 69 mmHg (60-100); SAMPLE BLOOD; SAO2 96.4 % (95.0-100.0); SRATE 10 BPM; THB 13.2 g/dL (11.5-17.4); TVOL 700 mL; pH(98.6) 7.43 (7.35-7.45)
[2019-06-04 04:54] LABS: MODALITY VENTILATOR
--- NOTE | 2019-06-04 07:09 | Diag Imaging Result Doc PS360 ---
EXAM: CHEST-PORTABLE 06/04/2019 HISTORY: Vent Protocol TECHNIQUE: AP portable semiupright at 0458 COMMENT: There is an endotracheal tube with its tip well above the thoracic inlet and an NG tube which passes below the diaphragm into the stomach. There is a PICC line on the right to the tip of which descends in the right internal jugular and is kinked with its tip directed downward. This was also the case on 06/03/2019. The inspiration is less optimal than on the previous study. There continues to be ill-defined interstitial and platelike opacities bilaterally. IMPRESSION: Pulmonary edema with atelectasis versus pneumonia particularly in the right lower lobe. Electronically signed by Will Penn 06/04/2019 7:07 AM
[2019-06-04] MEDS: MUCOMYST 20% INH SCH ×2 (07:41→19:35)
--- NOTE | 2019-06-04 08:31 | PULMONOLOGY PROGRESS NOTE ---
DATE: 06/03/2019 SUBJECTIVE: The patient was evaluated earlier this morning, and placed on a spontaneous breathing trial. She did well, and arterial blood gas revealed adequate oxygenation and ventilation. The patient was extubated, but had difficulty controlling her oral secretions. She has been reintubated. OBJECTIVE: Vital Signs: The patient has been afebrile for the last 24 hours, blood pressure 110/57, heart rate 67, respiratory rate 10, oxygen saturation 96%. HEENT: Pupils are equal and reactive. Oropharynx appears clear. Neck: Supple. Chest: Coarse rhonchi bilaterally. Cardiac: S1, S2. Abdomen: Obese and soft. Extremities: Reveal 1+ peripheral edema. LABORATORY DATA: Re-intubation reveals increased vascular congestion. Endotracheal tube in good position. PICC line is now looped and nonfunction. IMPRESSION: A 29-year-old with: 1. Community-acquired pneumonia with improvement on chest x-ray. 2. Acute hypoxemic respiratory failure. 3. Acute hypercapnic respiratory failure. 4. Obesity. 5. Down syndrome. 6. Abnormal echocardiogram, questionable atrial mass versus normal anatomic structure. PLAN: 1. Reintubation. 2. Replace PICC line tomorrow. 3. Ask Cardiology to evaluate this patient to see whether a UMANG is warranted to better define cardiac function. TIME SPENT: Time spent in critical care management was 30+ minutes. cc: Charanjit Ray MD
[2019-06-04 08:44] LABS: HEMATOCRIT 35.2 % (37.0-47.0); HEMOGLOBIN 11.3 g/dL (12.0-16.0); MCH 29.7 PG (27-31); MCHC 32.1 g/dL (33-37); MCV 92.4 FL (81-99); MPV 11.4 FL (7.4-10.4); RBC 3.81 XMIL (4.2-5.4); RDW 14.6 % (11.5-14.5); WBC 8.14 X1000 (4.8-10.8)
--- NOTE | 2019-06-04 08:54 | PROGRESS NOTE ---
DATE: 06/04/2019 SUBJECTIVE: Ms. Chamberlain tried to extubate. She did not tolerate it. She is back on the ventilator and FiO2 went from 50%, she is up to 70%. We held the tube feedings. Expect we will probably restart those. OBJECTIVE: Chest x-ray this morning. Pulmonary edema, atelectasis versus pneumonia, particularly right lower lobe. ASSESSMENT AND PLAN: 1. Community-acquired pneumonia. Continue to try improve oxygenation and get her off the ventilator. 2. Acute hypoxemic respiratory failure. 3. Acute hypercapnic respiratory failure. 4. Obesity. 5. Down syndrome. REVIEW OF PRESENT ORDERS: She is on cefepime 2 g IV q.12, Lovenox 40 mg subcutaneous q.24 hours, Lasix 40 mg q.12, levofloxacin 500 mg IV q.24 hours, vancomycin 1.2 g IV q.18 hours. REVIEW OF HER LABS: From this morning, she did not have any new electrolytes. We will probably check again tomorrow. Blood sugar 165, 149, 113, 114. I do not see any change. REVIEW OF HER MICRO: She has had no growth in blood cultures from 05/24/2019. Sputum culture was normal maria del carmen. cc: James Farias MD
[2019-06-04] MEDS ORDERED: NS 250 ML ONE (08:55)
[2019-06-04 08:56] LABS: AGAP 13; ALB/GLOB RATIO 0.8; ALBUMIN 3.3 g/dL (3.5-5.0); ALKALINE PHOSPHATASE 50 U/L (32-104); BUN 31 mg/dL (8-22); CALCIUM 9.3 mg/dL (8.8-10.2); CHLORIDE 97 mmol/L (98-107); COSMO 285; CREATININE 0.8 mg/dL (0.5-0.9); ESTIMATED GFR > 60; GLUCOSE 109 mg/dL (70-104); GOT 20 U/L (10-30); GPT 12 U/L (10-36); POTASSIUM 3.6 mmol/L (3.5-5.1); SODIUM 139 mmol/L (136-145); TCO2 29 mmol/L (25-35); TOTAL BILIRUBIN 0.39 mg/dL (0.20-1.00); TOTAL PROTEIN 7.2 g/dL (6.3-8.3)
[2019-06-04 09:22] LABS: MAGNESIUM 2.2 mg/dL (1.5-2.7); PHOSPHORUS 5.2 mg/dL (2.7-4.5)
[2019-06-04] MEDS: LASIX IV SCH ×2 (11:36→22:16)
[2019-06-04] MEDS: PROTONIX IV SCH (16:20)
[2019-06-04] MEDS: LOVENOX SUBQ SCH (16:20)
[2019-06-04] MEDS: VANCOMYCIN 1.2 GM in NS 250 ML IV SCH (17:38)
[2019-06-04] MEDS: LEVAQUIN 500 MG/D5W 500 MG/100 ML IVPB IV SCH (18:47)
[2019-06-04] MEDS: MORPHINE IV PRN (21:16)
--- NOTE | 2019-06-05 01:03 | PULMONOLOGY PROGRESS NOTE ---
DATE: 06/04/2019 SUBJECTIVE: The patient is arousable. She is watching TV. She has been afebrile since re- intubation. OBJECTIVE: Vital Signs: Blood pressure 128/64, heart rate 86, respiratory rate 12, oxygen saturation 94% on 70% FiO2. HEENT: Pupils are equal. Oropharynx appears clear. Neck: Supple. Chest: Reveals coarse breath sounds bilaterally. Cardiac: S1, S2. Abdomen: Obese and soft. Extremities: Reveal 1+ peripheral edema. LABORATORIES: Chest x-ray reveals volume loss with increased markings in the right chest. The left lung appears relatively clear. Endotracheal tube in good position. Sputum cultures are pending. White blood count 8.14, hemoglobin 11.3, platelet count 331,000. Arterial blood gas, pH 7.43, pCO2 of 49, PO2 of 69. IMPRESSION: A 29-year-old with: 1. Community-acquired pneumonia. 2. Acute hypoxemic respiratory failure. 3. Acute hypercapnic respiratory failure. 4. Status post failed extubation. 5. Obesity. 6. Down syndrome. 7. Abnormal echocardiogram with possible atrial mass present. PLAN: 1. Continue ventilatory support. She continues to require significant amount of oxygen. 2. Adjust PICC line. This has been completed by report. 3. Cardiology consultation. TIME SPENT: In critical care management, 30+ minutes. cc: Charanjit Ray MD
[2019-06-05] MEDS: DUONEB (A & A) INH SCH ×6 (02:58→23:39)
[2019-06-05] MEDS: MAXIPIME 2 GM in NS 100 ML IV SCH ×2 (03:12→16:25)
[2019-06-05] MEDS: MORPHINE IV PRN (03:12)
[2019-06-05 04:16] LABS: ALLEN TEST YES; BE 9.7 mmoll (-3.0-3.0); BLOOD TYPE ARTERIAL; HCO3-(ACT) 32.5 mmoll (20.0-26.0); METHB 1.7 % (0.0-1.5); O2(CT) 17.2 mL/dL (15.0-23.0); O2HB 96.1 % (95.0-99.0); PCO2(98.6) 41 mmHg (35-45); PO2(98.6) 160 mmHg (60-100); SAMPLE BLOOD; SAO2 99.4 % (95.0-100.0); SRATE 10 BPM; THB 12.5 g/dL (11.5-17.4); TVOL 700 mL; pH(98.6) 7.52 (7.35-7.45)
[2019-06-05 04:17] LABS: MODALITY VENTILATOR
[2019-06-05 05:44] LABS: HEMATOCRIT 36.6 % (37.0-47.0); HEMOGLOBIN 11.6 g/dL (12.0-16.0); MCH 29.4 PG (27-31); MCHC 31.7 g/dL (33-37); MCV 92.9 FL (81-99); MPV 10.7 FL (7.4-10.4); RBC 3.94 XMIL (4.2-5.4); RDW 14.7 % (11.5-14.5); WBC 6.25 X1000 (4.8-10.8)
[2019-06-05 06:21] LABS: AGAP 13; ALB/GLOB RATIO 0.8; ALBUMIN 3.2 g/dL (3.5-5.0); ALKALINE PHOSPHATASE 50 U/L (32-104); BUN 29 mg/dL (8-22); CALCIUM 9.4 mg/dL (8.8-10.2); CHLORIDE 99 mmol/L (98-107); COSMO 296; CREATININE 0.8 mg/dL (0.5-0.9); ESTIMATED GFR > 60; GLUCOSE 190 mg/dL (70-104); GOT 17 U/L (10-30); GPT 12 U/L (10-36); POTASSIUM 3.4 mmol/L (3.5-5.1); SODIUM 143 mmol/L (136-145); TCO2 31 mmol/L (25-35); TOTAL BILIRUBIN 0.26 mg/dL (0.20-1.00); TOTAL PROTEIN 7.4 g/dL (6.3-8.3)
--- NOTE | 2019-06-05 06:54 | Diag Imaging Result Doc PS360 ---
EXAM: CHEST-PORTABLE HISTORY: Vent Protocol TECHNIQUE: Single view COMPARISON: 06/04/2019 FINDINGS: No change in the endotracheal tube or nasogastric tube. The right-sided PICC line now has its tip overlying the right atrium. The lungs are poorly expanded. No cardiomegaly. The infiltrates are less prominent. Tiny right effusion. IMPRESSION: Mild interval improvement. Electronically signed by Solomon Hutchison 06/05/2019 6:52 AM
[2019-06-05] MEDS: MUCOMYST 20% INH SCH ×2 (08:30→19:37)
--- NOTE | 2019-06-05 10:51 | PROGRESS NOTE ---
DATE: 06/05/2019 SUBJECTIVE: Ms. Chamberlain is still intubated and sedated. She did have a high residual so they stopped her feeding. I think she had 400 mL early this morning. OBJECTIVE: Vital signs: Temperature 98.8 degrees, pulse 81, respirations 11, blood pressure 127/67. HEENT: Pupils are equal and round. Lungs: Clear in all lung mckinnon. Cardiovascular: Regular rhythm and rate without murmur or S3. Urine output is 3600 mL. IMAGING: Chest x-ray from this morning. Mild interval improvement. No change in endotracheal tube or nasogastric tube. Right-sided PICC line has its tip overlying the right atrium. Lungs are poorly expanded. No cardiomegaly. The infiltrates are less prominent. Tiny right pleural effusion. ASSESSMENT AND PLAN: 1. Community-acquired pneumonia, acute hypoxemic respiratory failure, acute hypercapnic respiratory failure status post failed extubation. Continue present measures. Dr. Ray is following. Continue present antibiotics. 2. Obesity. 3. Down syndrome. 4. Has an abnormal echo, possible atrial mass present. PICC line was adjusted. ORDERS: On cefepime 2 g IV q.12, levofloxacin 500 mg IV q.24 hours, Protonix 40 mg a day, vancomycin 1.2 g IV q.18. cc: James Farias MD
[2019-06-05] MEDS: VANCOMYCIN 1.2 GM in NS 250 ML IV SCH (12:00)
[2019-06-05] MEDS: LASIX IV SCH (12:00)
[2019-06-05] MEDS ORDERED: XYLOCAINE-MPF 2% ONE (13:44)
[2019-06-05] MEDS ORDERED: DIPRIVAN 1% 500 MG/50 ML BOTTLE ONE (13:46)
--- NOTE | 2019-06-05 14:19 | CARDIOLOGY CONSULTATION ---
DATE: 06/05/2019 Date of 1990. CHIEF COMPLAINT: Dyspnea. REASON FOR THIS CONSULTATION: Pulmonary service is requesting transesophageal echocardiogram because of respiratory failure refractory to management. The patient has an abnormal echocardiogram on 05/26/2019 that showed mass in right atrium of unclear significance, possible myxoma. HISTORY: Mrs. Chamberlain is a very unfortunate 29-year-old female, a patient who has Down syndrome, brought to the emergency room on the day of admission, 05/24/2019 with cough, congestion and progressive respiratory distress. The patient had to be intubated. Her x-rays from admission and subsequent including a chest CT shows patchy airspace infiltrate and interstitial seen throughout both lungs consistent with multilobar pneumonia. The patient had a white count initially of 12,000 and it has come down to 6000. Her platelet count has been pretty normal. Hemoglobin is 11.6. Her blood gases have been monitored by the Pulmonary service. BUN and creatinine have been adequate. The patient has no prior history of having GI difficulties. Her main problem is Down syndrome and she is in a intermediate. SURGICAL HISTORY: Reported tonsillectomy and an appendectomy. PHYSICAL EXAMINATION: Blood pressure is 127/67, pulse 81, temperature 98.8 degrees, respirations 11. She is awake, at times seems to follow commands. Does not seem to be in distress.Skin: No lesions. HEENT: Otherwise unremarkable. She has an orotracheal tube and also an NG tube. Breath sounds are diminished bilaterally. Heart: Sounds are regular rhythmic tachycardia. Abdomen: Slightly distended with hypoactive bowel sounds. Extremities: Showed no edema. IMPRESSION: 1. Patient who has persistent bilateral pneumonia with failure to be extubated. She was extubated once and had to be reintubated. 2. Down syndrome. 3. Abnormal transthoracic echocardiogram with suspicious mass. RECOMMENDATION: We will perform transesophageal echocardiogram to satisfy the concerns of the pulmonary service. The benefits, risks, complications were discussed with the mother who is the power of managing attorney. She understood. We will try to arrange for this test today. cc: Nigel Winters MD
--- NOTE | 2019-06-05 15:19 | Diag Imaging Result Doc PS360 ---
EXAM: CHEST/ABD TUBE PLACEMENT INDICATION: verify NGT placement TECHNIQUE: One view COMPARISON: 06/05/2019 FINDINGS: The NG tube projects well below the diaphragm and is assumed to be in the lumen of the stomach in the expected position. The ET tube and right PICC line appear stable. The chest is grossly unchanged, otherwise. IMPRESSION: NG tube in expected position as described. Electronically signed by John Boogie 06/05/2019 3:17 PM
[2019-06-05] MEDS: ATIVAN IV PRN ×2 (15:55→19:46)
[2019-06-05] MEDS: PROTONIX IV SCH (16:25)
[2019-06-05] MEDS: LOVENOX SUBQ SCH (16:26)
--- NOTE | 2019-06-05 19:02 | ECHO REPORT ---
ORDER DATE: 06/05/2019 INDICATION: Patient with apparent mass in the right atrium, thrombus versus tumor or something else suspected. DESCRIPTION: The patient was consented through her mother, who is the Power of [employer]. The patient was intubated and in ICU bed Number 4. Anesthesia services were required. After removing the nasogastric tube and keeping the orotracheal tube in position, we sprayed the throat with Hurricaine. Anesthesia provided heavy sedation. We were able to intubate the esophagus, and multiple tomographic views of the cardiac structures were obtained. Following is a summary of the main findings: FINDINGS: 1. The right atrium shows the presence of a 1.8 x 0.8 cm mass-like structure that appears to be in the anatomical location of the china terminalis. This is dense and well attached to the right atrial wall. It is not oscillating or moving. I believe this is a variant of a normal anatomical structure. The differential would include thrombus; however, that is deemed to be less likely. The interatrial septum is intact. Agitated saline was injected, and there was no indication of shunt. 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 There is no atrial septal defect. 2. The aortic valve has 3 cusps. They open normally. Color flow mapping unremarkable. The ascending aorta is not dilated. 3. The tricuspid valve is normal. Color flow mapping unremarkable. 4. The right ventricle is slightly prominent. It shows normal function. The left ventricle shows normal contractility. 5. The pulmonic valve is anatomically normal. 6. The mitral valve also appears to be anatomically normal. Color flow mapping indicates a mild degree of regurgitation. 7. The descending thoracic aorta is normal. 8. There is no pericardial effusion, no mass, and no thrombus. 9. The superior vena cava demonstrates the presence of the tip of a PICC line. 10.Pulmonary venous flow shows a normal pattern. SUMMARY: This transesophageal echocardiogram shows the presence of a mass-like structure that appears to be in the anatomical location of the china terminalis, and probably represents an extreme thickening of that normal anatomical structure. The remainder of the study shows a very prominent or enlarged coronary sinus, which is expected due to the presence of abnormal drainage of a left persistent superior vena cava into that vein. Clinical correlation is strongly recommended. The patient tolerated this procedure very well. cc: Nigel Winters MD [facility]
[2019-06-05] MEDS: LEVAQUIN 500 MG/D5W 500 MG/100 ML IVPB IV SCH (19:46)
--- NOTE | 2019-06-06 00:07 | PULMONOLOGY PROGRESS NOTE ---
DATE: 06/05/2019 SUBJECTIVE: The patient is awake. She does recognize the practitioner during the exam. OBJECTIVE: Vital Signs: The patient has been afebrile for the last 24 hours. Blood pressure 140/62, heart rate 101, respiratory rate 12, oxygen saturation 92% on 70% FiO2. HEENT: Pupils are equal and reactive. Oropharynx appears clear with endotracheal tube in place. Neck: Supple. Chest: Reveals coarse rhonchi bilaterally. Cardiac: S1-S2. Abdomen: Soft and obese. Extremities: Reveal 1+ peripheral edema. LABORATORIES: White blood count 6.25, hemoglobin 11.6, platelet count 352,000. Sodium 143, potassium 3.4, chloride 99, bicarbonate 31, BUN 29, creatinine 0.8. Chest x-ray reveals slight decrease in pulmonary infiltrates. IMPRESSION: A 29-year-old with: 1. Community-acquired pneumonia. 2. Acute hypoxemic respiratory failure. 3. Acute hypercapnic respiratory failure. 4. Status post successful spontaneous breathing trial with subsequent failed extubation. 5. Down syndrome. 6. Obesity. 7. Abnormal echocardiogram. PLAN: 1. Anticipate UMANG today after discussion of the case with Dr. Winters. 2. Continue full ventilatory support. 3. Daily vent weaning trials. If the patient fails again, she will likely require tracheostomy. Time spent in critical care management: 30+ minutes cc: Charanjit Ray MD [facility]
[2019-06-06] MEDS: MORPHINE IV PRN ×7 (00:30→23:04)
[2019-06-06] MEDS: DUONEB (A & A) INH SCH ×6 (02:55→23:30)
[2019-06-06] MEDS: ATIVAN IV PRN (02:59)
[2019-06-06] MEDS: VANCOMYCIN 1.2 GM in NS 250 ML IV SCH ×2 (04:44→23:02)
[2019-06-06] MEDS: MAXIPIME 2 GM in NS 100 ML IV SCH ×2 (04:44→16:38)
[2019-06-06 04:48] LABS: ALLEN TEST YES; BE 11.6 mmoll (-3.0-3.0); BLOOD TYPE ARTERIAL; METHB 0.8 % (0.0-1.5); O2(CT) 14.1 mL/dL (15.0-23.0); O2HB 96.4 % (95.0-99.0); PO2(98.6) 88 mmHg (60-100); SAMPLE BLOOD; SAO2 98.7 % (95.0-100.0); SRATE 10 BPM; THB 10.3 g/dL (11.5-17.4); TVOL 700 mL; pH(98.6) 7.46 (7.35-7.45)
[2019-06-06 04:49] LABS: MODALITY VENTILATOR; PCO2(98.6) 52 mmHg (35-45)
[2019-06-06] MEDS: TYLENOL PO PRN (05:06)
[2019-06-06 05:55] LABS: AGAP 14; ALB/GLOB RATIO 0.8; ALBUMIN 3.5 g/dL (3.5-5.0); ALKALINE PHOSPHATASE 47 U/L (32-104); BUN 29 mg/dL (8-22); CALCIUM 9.5 mg/dL (8.8-10.2); CHLORIDE 97 mmol/L (98-107); COSMO 290; CREATININE 0.9 mg/dL (0.5-0.9); ESTIMATED GFR > 60; GLUCOSE 124 mg/dL (70-104); GOT 18 U/L (10-30); GPT 10 U/L (10-36); POTASSIUM 3.6 mmol/L (3.5-5.1); SODIUM 142 mmol/L (136-145); TCO2 31 mmol/L (25-35); TOTAL BILIRUBIN 0.44 mg/dL (0.20-1.00); TOTAL PROTEIN 7.7 g/dL (6.3-8.3)
[2019-06-06 07:10] LABS: HEMATOCRIT 38.5 % (37.0-47.0); HEMOGLOBIN 11.7 g/dL (12.0-16.0); MCH 28.5 PG (27-31); MCHC 30.4 g/dL (33-37); MCV 93.7 FL (81-99); MPV 10.1 FL (7.4-10.4); RBC 4.11 XMIL (4.2-5.4); WBC 8.17 X1000 (4.8-10.8)
--- NOTE | 2019-06-06 07:48 | Diag Imaging Result Doc PS360 ---
EXAM: CHEST-PORTABLE INDICATION: Confirm NG placement TECHNIQUE: One view COMPARISON: 06/06/2019 FINDINGS: The NG tube projects well below the diaphragm and is assumed to be in the lumen of the stomach in expected position. The remaining support tubes and lines are in stable positions. Otherwise, the chest is essentially stable as compared to the recent prior study. IMPRESSION: NG tube in expected position as described. Electronically signed by John Boogie 06/06/2019 7:46 AM
--- NOTE | 2019-06-06 07:55 | Diag Imaging Result Doc PS360 ---
EXAM: CHEST-PORTABLE INDICATION: Vent Protocol TECHNIQUE: One view COMPARISON: 06/05/2019 FINDINGS: Support tubes and lines are in stable positions. Pulmonary venous congestion and interstitial edema is again noted. Given differences in positioning, it is approximately stable. No new consolidation is identified. Cardiac silhouette is stable. IMPRESSION: Grossly stable chest. Electronically signed by John Boogie 06/06/2019 7:52 AM
[2019-06-06] MEDS: MUCOMYST 20% INH SCH ×2 (08:40→19:20)
[2019-06-06] MEDS: LASIX IV SCH ×3 (11:06→22:19)
--- NOTE | 2019-06-06 11:27 | PROGRESS NOTE ---
DATE: 06/06/2019 SUBJECTIVE: Ms Chamberlain opened her eyes, actually is alert. Still intubated. Seems to be comfortable. OBJECTIVE: Vital signs: Temperature 97.4 degrees. Yesterday, had a temperature again of 101 degrees. Pulse 80, respirations 15, blood pressure 154/74. HEENT: Pupils are equal and round. Lungs: Clear in all lung mckinnon. Cardiovascular: Regular rate without murmur or S3. Abdomen: Soft. Skin: Warm and dry. Urine output was 2900 mL. IMAGING: Chest x-ray. NG tube is in expected position. Remaining support tubes in stable position. Chest essentially stable compared to prior chest x-ray. ASSESSMENT AND PLAN: 1. Community-acquired pneumonia. 2. Acute hypoxemic respiratory failure. 3. Acute hypercapnic respiratory failure. 4. Status post successful spontaneous breathing trial but failed extubation and so trying to wean down and get her off the ventilator. 5. Down syndrome. 6. Obesity. 7. Abnormal echocardiogram. Anticipate UMANG after discussion with Dr. Winters just to look at the echocardiogram. UMANG shows the presence of a masslike structure that appears to be anatomical location of the china terminalis, probably represents an extreme thickening of the normal anatomic structure. The remainder of the study shows a very prominent and large coronary sinus which is expected due to the presence of abnormal drainage of the left persistent superior vena cava in the vein. cc: James Farias MD
[2019-06-06] MEDS: PROTONIX IV SCH (16:38)
[2019-06-06] MEDS: LOVENOX SUBQ SCH (16:38)
[2019-06-06] MEDS: LEVAQUIN 500 MG/D5W 500 MG/100 ML IVPB IV SCH (20:22)
--- NOTE | 2019-06-06 22:46 | PULMONOLOGY PROGRESS NOTE ---
DATE: 06/06/2019 SUBJECTIVE: The patient is arousable to alert. She has been watching TV this morning. OBJECTIVE: Vital Signs: Maximum temperature in the last 24 hours 101.1 degrees, BP 133/57, heart rate 83, respiratory rate 11, oxygen saturation 90% on 80% FiO2. HEENT: Pupils are equal and reactive. Oropharynx is clear. Neck: Supple. Chest: Reveals coarse rhonchi bilaterally. Cardiac: S1, S2. Abdomen: Soft. Extremities: Reveal trace edema. LABORATORIES: Chest x-ray is unchanged. Arterial blood gas, pH 7.46, pCO2 of 52, PO2 of 88 on 80% FiO2. White blood count 8.17, hemoglobin 11.7, platelet count 406,000. IMPRESSION: A 29-year-old with: 1. Down syndrome. 2. Morbid obesity with a BMI of 50. 3. Community-acquired pneumonia. 4. Acute hypoxemic respiratory failure. 5. Acute hypercapnic respiratory failure. 6. Abnormal echocardiogram. The patient underwent UMANG and it is believed that abnormality seen on the transthoracic echocardiogram is a normal variant for this patient. 7. Status post failed extubation. PLAN: 1. Continue current antibiotic regimen. 2. Continue tube feeds. 3. Continue full ventilatory support and wean as tolerated. 4. The patient may require tracheostomy if she does not continue to improve as expected. cc: Charanjit Ray MD
[2019-06-07] MEDS: ATIVAN IV PRN ×3 (01:23→23:33)
[2019-06-07] MEDS: DUONEB (A & A) INH SCH ×6 (03:29→23:30)
[2019-06-07] MEDS: MAXIPIME 2 GM in NS 100 ML IV SCH ×2 (05:00→16:33)
[2019-06-07] MEDS: MORPHINE IV PRN ×5 (05:09→21:10)
[2019-06-07 05:30] LABS: ALLEN TEST YES; BE 9.8 mmoll (-3.0-3.0); BLOOD TYPE ARTERIAL; HCO3-(ACT) 32.5 mmoll (20.0-26.0); METHB 1.2 % (0.0-1.5); O2(CT) 16.1 mL/dL (15.0-23.0); O2HB 94.1 % (95.0-99.0); PO2(98.6) 74 mmHg (60-100); SAMPLE BLOOD; SAO2 96.9 % (95.0-100.0); SRATE 10 BPM; THB 12.1 g/dL (11.5-17.4); TVOL 700 mL; pH(98.6) 7.45 (7.35-7.45)
[2019-06-07 05:31] LABS: PCO2(98.6) 51 mmHg (35-45)
[2019-06-07 06:49] LABS: HEMATOCRIT 36.8 % (37.0-47.0); HEMOGLOBIN 11.5 g/dL (12.0-16.0); MCH 29.4 PG (27-31); MCHC 31.3 g/dL (33-37); MCV 94.1 FL (81-99); MPV 11.1 FL (7.4-10.4); RBC 3.91 XMIL (4.2-5.4); RDW 15.2 % (11.5-14.5); WBC 8.84 X1000 (4.8-10.8)
[2019-06-07 07:41] LABS: ALB/GLOB RATIO 0.7; CALCIUM 9.5 mg/dL (8.8-10.2); CREATININE 1.1 mg/dL (0.5-0.9); TOTAL BILIRUBIN 0.34 mg/dL (0.20-1.00); TOTAL PROTEIN 7.5 g/dL (6.3-8.3)
--- NOTE | 2019-06-07 07:51 | Diag Imaging Result Doc PS360 ---
EXAM: CHEST-PORTABLE INDICATION: Vent Protocol/ New NG tube placement TECHNIQUE: One view COMPARISON: 06/06/2019 FINDINGS: Support tubes and lines are in stable positions. Inspiration is suboptimal similar to the previous study. Pulmonary venous congestion and interstitial edema is approximately stable. No new consolidation is identified. Cardiac silhouette is stable. IMPRESSION: Grossly stable chest. Electronically signed by John Boogie 06/07/2019 7:49 AM
[2019-06-07] MEDS: MUCOMYST 20% INH SCH ×2 (09:31→19:30)
[2019-06-07] MEDS: LASIX IV SCH (10:41)
--- NOTE | 2019-06-07 13:08 | PROGRESS NOTE ---
DATE: 06/07/2019 SUBJECTIVE: Ms. Chamberlain is kind of tearful still. Getting sedation. Still on the ventilator. Breathing comfortably. Does not appear in any distress. OBJECTIVE: Vital Signs: Temperature 98.7 degrees, pulse 90, respirations 10, blood pressure 144/57. HEENT: Pupils are equal and round. Lungs: Clear in all lung mckinnon. Cardiovascular: Regular rhythm and rate without murmur or S3. Abdomen: Soft. Skin: Warm and dry. Urine output was 900 mL. IMAGING: Chest x-ray from this morning: Grossly stable. Support tubes and lines in stable position. Inspiration suboptimal, similar to previous study. Pulmonary venous congestion and interstitial edema is approximately stable. ASSESSMENT AND PLAN: 1. Down syndrome, morbid obesity with a body mass index of 50, obstructive apnea, community- acquired pneumonia, acute hypoxemic respiratory failure, acute hypercapnic respiratory failure on the ventilator. Continue to try and wean. Continue present antibiotic regimen. 2. For nutrition, continue her tube feeding. She is getting 40 mL an hour, and tolerating it pretty well. 3. Abnormal echocardiogram. Underwent transesophageal echocardiogram, and it appears that it was a normal variant for this patient, so continue present orders. The patient is on acetylcysteine 20% 3 mL twice daily, getting cefepime 2 grams intravenously every 12 hours, Lasix 40 mg intravenously every 12 hours, levofloxacin 500 mg intravenously every 24 hours. She gets Protonix 40 mg intravenously every 24 hours, and vancomycin 1.2 mg every 18 hours. LABORATORY DATA: Reviewed. White count 8840, hematocrit was 36, platelet count 346,000. Sodium 146, potassium 4.0, chloride 101, BUN 39, creatinine 1.1. Blood sugar 132, 137, 147, 168. cc: James Farias MD
[2019-06-07] MEDS: PROTONIX IV SCH (16:32)
[2019-06-07] MEDS: LOVENOX SUBQ SCH (16:33)
[2019-06-07] MEDS: VANCOMYCIN 1.2 GM in NS 250 ML IV SCH (17:07)
--- NOTE | 2019-06-07 18:44 | PULMONOLOGY PROGRESS NOTE ---
DATE: 06/07/2019 SUBJECTIVE: The patient remains on mechanical ventilation. She does arouse to her name. OBJECTIVE: Vital Signs: She has been afebrile over the last 24 hours. Blood pressure 144/57, heart rate 79, respiratory rate 9, oxygen saturation 95% on 80% FiO2. HEENT: Pupils are equal and reactive. Oropharynx appears clear. Neck: Is supple. Chest: Reveals coarse rhonchi bilaterally. Cardiac exam: S1, S2. Abdomen: Is obese and soft. Extremities: Without edema. LABORATORIES: Chest x-ray reveals shallow inspiration with no change in parenchymal congestion. Sodium 146, potassium 4.0, chloride 101, bicarbonate 24, BUN 39, creatinine 1.1. IMPRESSION: A 29-year-old with: 1. Down syndrome. 2. Morbid obesity and a body mass index greater than 50. 3. Community-acquired pneumonia. 4. Hypoxemic and hypercapnic respiratory failure. DISCUSSION: A 29-year-old with problems outlined above. She had a UMANG which likely revealed a few normal variants. No evidence of acute disease. Right ventricle is slightly prominent, but not severely dilated. She continues to require significant oxygen, likely related to underlying pneumonia. Pulmonary embolus was not identified on earlier CT scan. Current echocardiogram did not reveal evidence of right heart failure. She has been extubated and failed extubation. PLAN: 1. Continue current antibiotics. 2. Continue tube feeds. 3. Decrease Lasix dosing. 4. Continue full ventilatory support. 5. Anticipate the need for tracheostomy if she does not have clinical improvement over the next several days. TIME SPENT IN CRITICAL CARE MANAGEMENT: 30+ minutes. cc: Charanjit Ray MD
[2019-06-07] MEDS: LEVAQUIN 500 MG/D5W 500 MG/100 ML IVPB IV SCH (19:27)
[2019-06-08] MEDS: LASIX IV SCH ×2 (00:03→13:33)
[2019-06-08] MEDS: MORPHINE IV PRN ×4 (01:43→18:21)
[2019-06-08] MEDS: DUONEB (A & A) INH SCH ×6 (03:23→23:12)
[2019-06-08] MEDS: MAXIPIME 2 GM in NS 100 ML IV SCH (04:27)
[2019-06-08 04:56] LABS: ALLEN TEST YES; BE 10.1 mmoll (-3.0-3.0); BLOOD TYPE ARTERIAL; HCO3-(ACT) 32.9 mmoll (20.0-26.0); PCO2(98.6) 38 mmHg (35-45); PO2(98.6) 130 mmHg (60-100); SAMPLE BLOOD; SRATE 14 BPM; TVOL 700 mL; pH(98.6) 7.55 (7.35-7.45)
[2019-06-08 04:57] LABS: MODALITY VENTILATOR
[2019-06-08 06:47] LABS: HEMATOCRIT 36.6 % (37.0-47.0); HEMOGLOBIN 11.2 g/dL (12.0-16.0); MCH 28.6 PG (27-31); MCHC 30.6 g/dL (33-37); MCV 93.6 FL (81-99); MPV 10.8 FL (7.4-10.4); RBC 3.91 XMIL (4.2-5.4); RDW 15.1 % (11.5-14.5); WBC 7.42 X1000 (4.8-10.8)
[2019-06-08 07:17] LABS: ALB/GLOB RATIO 0.9; ALBUMIN 3.5 g/dL (3.5-5.0); CALCIUM 9.3 mg/dL (8.8-10.2); CREATININE 1.3 mg/dL (0.5-0.9); POTASSIUM 3.6 mmol/L (3.5-5.1); TOTAL BILIRUBIN 0.3 mg/dL (0.20-1.00); TOTAL PROTEIN 7.6 g/dL (6.3-8.3)
--- NOTE | 2019-06-08 07:32 | Diag Imaging Result Doc PS360 ---
EXAM: CHEST-PORTABLE 06/08/2019 HISTORY: Vent Protocol/ New NG tube placement TECHNIQUE: AP portable at 0532 COMMENT: The inspiration is somewhat suboptimal. There is an endotracheal tube with its tip at thoracic inlet. There is alveolar opacity in the left lower lobe and lingula and to some extent the perihilar portion of the lower lobe on the right. This was also present on 06/07/2019 but is worse compared to 06/06/2019. IMPRESSION: Pulmonary edema and/or pneumonia. Electronically signed by Will Penn 06/08/2019 7:28 AM
[2019-06-08] MEDS: MUCOMYST 20% INH SCH ×2 (07:54→18:50)
--- NOTE | 2019-06-08 10:00 | PROGRESS NOTE ---
DATE: 06/08/2019 SUBJECTIVE: Ms. Chamberlain did open her eyes. She seems comfortable. She is still intubated. OBJECTIVE: Remains afebrile, temperature 99.4 degrees, pulse 73, respirations 14, blood pressure 94/49. Her last several blood pressures 140/64, 130/61, 150/67, and last was 94/49. Pupils are equal and round. No distended neck veins. Lungs are clear in all lung mckinnon. Cardiovascular regular rate without murmur or S3. Abdomen is soft. Skin is warm and dry. IMAGING: Chest x-ray, pulmonary edema or pneumonia. ASSESSMENT AND PLAN: 1. She has underlying Down syndrome, morbid obesity, body mass index greater than 50, community- acquired pneumonia, hypoxemic hypercapnic respiratory failure. She had a transesophageal echocardiogram which revealed normal variance of her left ventricle. Right ventricle was seemed to be prominent, but not severely dilated. So, continue try to wean off the ventilator. There was no pulmonary embolus identified on CAT scan and current echocardiogram did not show evidence of right heart failure so continue trying to wean. 2. Continue present orders. The patient is on vancomycin 1.2 g IV Q 18 and is on cefepime 2 g IV q.12. cc: James Farias MD
--- NOTE | 2019-06-08 10:24 | Diag Imaging Result Doc PS360 ---
CT THORAX W/O CONTRAST - 06/08/2019 INDICATION: Ongoing hypoxemia COMPARISON: 05/25/2019 FINDINGS: There is an endotracheal tube, nasogastric tube, and right PICC line in good position. There is mild cardiomegaly. There is moderate diffuse mediastinal lymphadenopathy stable from prior. There is significant worsening consolidation of both lower lobes. There are numerous air bronchograms in the dependent lower lobes as well. Elsewhere, there is hazy mixed primarily interstitial infiltrate which may represent pulmonary edema. Major airways are all clear. Upper abdominal images are unremarkable. IMPRESSION: 1. Significant worsening bilateral lower lobe consolidation concerning for pneumonia or aspiration. 2. Significant interstitial pulmonary edema. Mild cardiomegaly. 3. Stable mediastinal lymphadenopathy. This exam was performed using automated exposure control, adjustment of mA or kV according to patient size, and/or use of iterative reconstruction technique Electronically signed by Nitin Barillas 06/08/2019 10:21 AM
[2019-06-08] MEDS: ZOSYN 3.375 GM in NS 50 ML IV SCH ×2 (14:00→20:27)
[2019-06-08 14:57] LABS: MODALITY VENTILATOR
[2019-06-08] MEDS: PROTONIX IV SCH (16:15)
[2019-06-08] MEDS: LOVENOX SUBQ SCH (16:15)
--- NOTE | 2019-06-08 17:18 | INFECTIOUS DISEASE CONSULT REP ---
DATE: 06/08/2019 CONCLUSION: The patient has a worsening bibasilar pneumonia despite being on broad-spectrum antibiotic coverage. RECOMMENDATIONS: I have discontinued cefepime, Levaquin and vancomycin and started the patient on Zosyn 3.375 g IV every 6 hours. DISCUSSION: The patient is unable provide a history. According to her mother the patient approximately 2 to 2-1/2 weeks ago started coughing and had fever. She was admitted to the hospital and is in intensive care unit. She has been on the combination of cefepime, Levaquin and vancomycin for 2 weeks. The patient's CBC showed a white count of 7420, hemoglobin 11.2 and platelet count 352,000. Blood gases show a pH of 7.55, a PO2 of 130 and a pCO2 of 38. Creatinine is 1.3. GFR is 49. Liver function studies are normal. CT scan of the chest shows worsening of bilateral lower lobe consolidation. PAST MEDICAL HISTORY/REVIEW OF SYSTEMS: I was unable to take this from the patient. According to the patient's mother, the patient was in good health. She was not having any problem hearing, seeing or breathing or passing urine or bowel movements. She was eating well. She did not have any skin rashes and she was not losing weight. FIBRE CEMENT MOULDER HISTORY: The patient has never been . Last menstrual period was a month and a half ago. PREVIOUS HOSPITALIZATIONS AND OPERATIONS: The patient has had a tonsillectomy. MEDICAL DISEASES: Positive for Down syndrome. INFECTIOUS DISEASE HISTORY: Negative for pneumonia and UTI. FAMILY HISTORY: Positive for diabetes mellitus, hypertension, myocardial infarction and stroke. SOCIAL HISTORY: The patient lives with her parents. The family has a dog as a pet. Patient does not smoke cigarettes, drink alcoholic beverages or abuse drugs. ALLERGIES: Her chart lists no known drug allergies. MEDICATIONS: The patient is on no home medications. PHYSICAL EXAMINATION: Vital Signs: Temperature is 99.2 degrees, pulse 73, respirations 14, blood pressure 94/49, the patient weighs 207 pounds. General: This is an ill-appearing young female. She is in no acute distress. She is intubated. Head/eyes/ears/nose/throat: The patient has an orotracheal tube in place and nasogastric tube in place also. There is no drainage from the nose or ears. Neck: No pain with movement of the neck. Lungs: Clear to auscultation. Cardiovascular: Heart rate is regular. Abdomen: Soft and nontender. Neurologic: The patient is lying in bed. She did not follow the request I made of her to move her extremities or to close or open her eyes. Patient does not have a tremor. Thank you for the consult. cc: Avinash Olmedo MD
[2019-06-08] MEDS ORDERED: VANCOMYCIN 1 GM/NS 1 GM/250 ML IVPB IV SCH (20:00)
[2019-06-08] MEDS: TYLENOL PO PRN (21:32)
[2019-06-08] MEDS: HALDOL IV PRN (23:29)
[2019-06-09] MEDS: MORPHINE IV PRN ×2 (00:24→20:47)
[2019-06-09] MEDS: ZOSYN 3.375 GM in NS 50 ML IV SCH ×4 (01:47→20:48)
[2019-06-09] MEDS: ATIVAN IV PRN (02:41)
[2019-06-09] MEDS: DUONEB (A & A) INH SCH ×6 (03:39→23:06)
[2019-06-09 04:49] LABS: ALLEN TEST YES; BE 8.8 mmoll (-3.0-3.0); BLOOD TYPE ARTERIAL; HCO3-(ACT) 31.8 mmoll (20.0-26.0); METHB 1.4 % (0.0-1.5); O2(CT) 17.7 mL/dL (15.0-23.0); O2HB 96.4 % (95.0-99.0); PCO2(98.6) 45 mmHg (35-45); PO2(98.6) 136 mmHg (60-100); SAMPLE BLOOD; SAO2 99.2 % (95.0-100.0); SRATE 14 BPM; THB 12.9 g/dL (11.5-17.4); TVOL 700 mL; pH(98.6) 7.48 (7.35-7.45)
[2019-06-09 04:50] LABS: MODALITY VENTILATOR
[2019-06-09 05:27] LABS: HEMATOCRIT 34.8 % (37.0-47.0); HEMOGLOBIN 10.8 g/dL (12.0-16.0); MCH 28.8 PG (27-31); MCV 92.8 FL (81-99); MPV 10.5 FL (7.4-10.4); RBC 3.75 XMIL (4.2-5.4); RDW 15.2 % (11.5-14.5); WBC 8.84 X1000 (4.8-10.8)
[2019-06-09 06:36] LABS: ALBUMIN 3.8 g/dL (3.5-5.0); CALCIUM 9.5 mg/dL (8.8-10.2); CREATININE 1.5 mg/dL (0.5-0.9); POTASSIUM 3.4 mmol/L (3.5-5.1); TOTAL BILIRUBIN 0.6 mg/dL (0.20-1.00); TOTAL PROTEIN 7.5 g/dL (6.3-8.3)
--- NOTE | 2019-06-09 07:06 | Diag Imaging Result Doc PS360 ---
CHEST-PORTABLE - 06/09/2019 INDICATION: Vent Protocol/ New NG tube placement COMPARISON: 06/08/2019 FINDINGS: Support lines and tubes are stable and in good position. Lung volumes are improved. There is decrease in the central infiltrates or atelectasis. Heart size is normal. No pneumothorax or large pleural effusion. IMPRESSION: Improved aeration of the lungs. No complication. Electronically signed by Nitin Barillas 06/09/2019 7:04 AM
[2019-06-09] MEDS: MUCOMYST 20% INH SCH ×2 (08:03→19:17)
[2019-06-09] MEDS: LASIX IV SCH (08:14)
--- NOTE | 2019-06-09 08:50 | PULMONOLOGY PROGRESS NOTE ---
DATE: 06/08/2019 SUBJECTIVE: The patient is arousable to alert. She appears to be comfortable on mechanical ventilation. OBJECTIVE: Vital Signs: Maximum temperature in the last 24 hours 100.1 degrees. Blood pressure 109/54, heart rate 94, respiratory rate 16, oxygen saturation 92%. HEENT: Pupils are equal and reactive. Oropharynx is clear. Neck: Is supple. Chest: Reveals scattered rhonchi bilaterally. Cardiac exam: S1, S2. Abdomen: Is obese and soft. Extremities: Reveal trace to 1+ peripheral edema. LABORATORIES: Sodium 145, potassium 3.6, chloride 100, bicarbonate 31, BUN 45, creatinine 1.3. White blood count 7.42, hemoglobin 11.2, platelet count 352,000. CT scan of the thorax is reviewed and reveals increasing bilateral lower lobe consolidation consistent with pneumonia/aspiration. 2) Mild cardiomegaly. 3) Moderate nonspecific lymphadenopathy. IMPRESSION: 1. A 25-year-old with bilateral pneumonia. 2. Morbid obesity. 3. Down syndrome. 4. Hypoxemic and hypercapnic respiratory failure. DISCUSSION: 29-year-old with problems outlined above. Despite course of antibiotics, her CT scan has worsened. PLAN: 1. Consult Infectious Disease and ask their assistance on antibiotic management. 2. Continue tube feeds. 3. Decrease Lasix dosing given pre renal status. 4. Continue full ventilatory support. 5. Anticipate the need for tracheostomy if she does not have clinical improvement by the end of the week. cc: Charanjit Ray MD
--- NOTE | 2019-06-09 10:03 | PROGRESS NOTE ---
DATE: 06/09/2019 SUBJECTIVE: This patient is still on mechanical ventilation. She is able to open her eyes when I call her name. She is not following commands. She is on restraints. She is moving all 4 extremities spontaneously. OBJECTIVE: Vital Signs: Temperature 96.6 degrees, pulse 77, respiratory rate 16, blood pressure 138/81, oxygen saturation 97% on mechanical ventilation. HEENT: Head normocephalic, no trauma. Neck: Supple. I cannot see JVD because of her neck size. Central trachea. Chest: Coarse breath sounds bilaterally with rhonchi at the bases. Abdomen: Soft, obese, protuberant, nontender, nondistended. No hepatosplenomegaly. Extremities: No edema, no clubbing, no cyanosis. Neurological: The patient is sleepy, but arousable. She is not following commands. She has a baseline Down's syndrome. LABORATORY: WBC 8.8, hemoglobin 10.8, hematocrit 34.8, platelet 210,000. Sodium 147, chloride 101, bicarbonate 29, BUN 53, creatinine 1.5, glucose 165, calcium 9.5. ASSESSMENT AND PLAN: 1. Acute hypoxemic and hypercarbic respiratory failure. This is a combination of pneumonia and pulmonary edema. She is still on mechanical ventilation. She was extubated last week and reintubated again. For now, we will continue with same management. Pulmonary Department on board. 2. Community-acquired pneumonia. Continue with antibiotics per Infectious Disease Department. We have a recent CT scan that showed significant worsening bilateral lower lobe consolidation concerning for pneumonia or aspiration, interstitial pulmonary edema and stable mediastinal lymphadenopathy. 3. Down's syndrome, aware. Continue to monitor. 4. Acute kidney injury, probably due to medications. Blood pressure has been stable, sometimes dropped to the 90s, and on the 11th dropped to 82 to 51. She has been also on vancomycin which has been stopped already. I will request some urinalysis and ultrasound of the kidneys, and also I will get the Wet Suit Gluer to evaluate this patient. 5. Mild hypernatremia. I will ask the Refractory Mixer to increase the water through the NG tube. 6. Nutritional status. This patient is getting feeding through the NG tube. We will continue with same management. She seems to be tolerating this. 7. Morbid obesity with a body mass index of 46.4. Aware. CRITICAL CARE TIME: 35 minutes. cc: Pepe Etienne MD MTDD
[2019-06-09 12:02] LABS: URINE SOURCE CATH
[2019-06-09 12:11] LABS: BILIRUBIN URINE NEGATIVE (NEGATIVE); BLOOD URINE MODERATE (NEGATIVE); COLOR YELLOW; GLUCOSE URINE NEGATIVE (NEGATIVE); KETONE URINE NEGATIVE (NEGATIVE); LEUKOCYTES URINE NEGATIVE (NEGATIVE); NITRITE URINE NEGATIVE (NEGATIVE); PROTEIN URINE 70 mg/dL (NEGATIVE); SP GRAVITY URINE 1.029; TURBIDITY URINE TURBID (CLEAR); UROBILINOGEN URINE NORMAL (NORMAL)
[2019-06-09 12:16] LABS: UR EPITHELIAL CELLS <10 /HPF (<10); URINE BACTERIA NEGATIVE /HPF; URINE RBC TNTC /HPF (<10)
[2019-06-09 12:30] LABS: URINE CRYSTALS URIC ACID PRESENT
--- NOTE | 2019-06-09 13:23 | PROVIDER PROGRESS NOTE ---
Progress Note Chief complaint: intubated History of Present Illness: Ms. Chamberlain is. 28-year-old white female with a past medical history of down syndrome. She came in on 05/24/19 with shortness of breath and reported fevers from her parents. Her initial oxygen saturation was 81% on 4 L nasal cannula. She was admitted for acute respiratory failure. She was placed on vancomycin, cefepime, and Levaquin for community acquired pneumonia. The next day she was unarousable and her ABG revealed a critical PCO2. Subsequently, she was intubated. Dairy Science Teacher came on board and assisted with her care at this time. She was unable to come off the ventilator due to high oxygen demands. After she passed weaning trials on 06/03 she was extubated. However, she went into respiratory distress with abnormal ABGs and was reintubated two hours later. The xray for endotracheal tube placement found the PICC out of place so it was discontinued. Her urine output started dropping off on 06/04. On 06/05 cardiology was consulted due to an abnormal finding on her echocardiogram. A transesophageal echocardiogram was done and found a large coronary sinus. On 06/08, infectious disease was consulted and changed her broad-spectrum antibiotics to Zosyn. Her Creatinine has been 0.7-0.8 since admission on 05/24. On 06/06 it started trending up and today it is 1.5. Past medical history: Down syndrome Past surgical history: tonsillectomy and adenoidectomy Social history: she lives with her parents. They deny any tobacco, alcohol, or illicit drug use. Family history: positive for diabetes, heart disease, and CVA. Allergies: none known. Home medications: none Review of systems: unable due to patients intubation. Labs: WBC 8.84, hemoglobin 10.8, hematocrit 34.8, platelet count 310, sodium 147, potassium 3.4, chloride 101, carbon dioxide 29, BUN 53, creatinine 1.5. Arterial blood gas pH 7.48, PCO2 45, PO2 136, HCO3 31.8, base excess 8.8. Intake 1530, output 1355. Imaging: CT thorax without contrast and oppression significant worsening bilateral lower lobe consolidation concerning for pneumonia or aspiration, significant interstitial pulmonary edema, mild cardiomegaly, stable mediastinal lymphadenopathy. Chest x-ray impression improved aeration of the lungs. Physical exam: temp 98.0, pulse 77, respiration 16, blood pressure 112/74, 02 sat 94% On 50% FIO2 mechanical ventilation. General: Young white female lying in bed in no acute distress HEENT: Normocephalic, atraumatic. Trachea midline. Pupils equal and reactive to light. Mucous membranes moist. Skin: warm and dry Neck: Supple, unable to determine JVD due to body habitus. Cardiovascular: S1S2, regular rate and rhythm, no murmur or gallop. Respiratory: Bilateral Coarse rhonchi anteriorly. Abdomen: soft, obese, nontender, nondistended. bowel sounds present. : non-inspected, salgado in place Extremities: no clubbing or cyanosis. Trace edema to BLE. Neurological: able to shake her head yes or no, opens eyes to verbal commands. Assessment and plan: Acute kidney injury. Prerenal vs acute tubular necrosis. Obstruction seems unlikely. Creatinine was normal until 06/06 when it started trending up, 1.[address] technically difficult. Renal US and urine studies ordered. Blood pressure. Stable. Mild Hypernatremia. Observe for now. Fluid volume. Observe. Medication review. No changes are required today. Vancomycin was discontinued.
--- NOTE | 2019-06-09 13:41 | INFECTIOUS DISEASE PROGRESS NO ---
DATE: 06/09/2019 PRESENT ILLNESS: The patient has a bilateral pneumonia which had been worsening on radiographic study. Yesterday, I started Zosyn and the patient's chest x-ray is improved today. MEDICATIONS: The patient is on IV Zosyn. PHYSICAL EXAMINATION: Vital Signs: Temperature is 96.6 degrees, pulse 77, respirations 16, blood pressure is 138/81. General: This is a somewhat ill-appearing, young female. She is in no acute distress. Head, Eyes, Ears, Nose, and Throat: She has an orotracheal tube and a nasogastric tube in place. There is no drainage from the nose or ears. She did open her eyelids. She tracks with her eyes. Neck: No meningismus. Lungs: Clear to auscultation. Cardiovascular: Regular heart rate. Abdomen: Soft and nontender. Neurologic: The patient initially was sleeping. I talked to her and she did open her eyes but she did not follow any requests that I made of her such as to close her eyes or move her extremities. Integument: No rash noted. LAB AND X-RAY: CBC shows a white count of 8840, hemoglobin 10.8, platelet count 310,000. Creatinine is 1.5. GFR is 42. Blood gases show a pH of 7.48, a PO2 of 136, and a pCO2 of 45. Sputum culture grew normal maria del carmen and yeast. Blood and urine cultures are negative. As I mentioned earlier, the chest x-ray is better today. ASSESSMENT AND PLAN: The patient has a bilateral pneumonia which is improving radiographically since I started Zosyn yesterday. My plan would be to continue Zosyn. The patient does have yeast in her sputum/ however, this is a contaminant from upper respiratory yeast and does not require treatment. COMORBIDITIES: The patient has Down syndrome. cc: Avinash Olmedo MD
[2019-06-09] MEDS: LOVENOX SUBQ SCH (16:25)
[2019-06-09] MEDS: SODIUM CHLORIDE 0.9% INJ SCH (16:25)
[2019-06-09] MEDS: PROTONIX IV SCH (16:25)
--- NOTE | 2019-06-09 17:07 | Diag Imaging Result Doc PS360 ---
EXAM: US RENAL 2 (RETROPER) COMPLETE INDICATION: KATIE TECHNIQUE: COMPARISON: None. FINDINGS: Visualization of the left kidney is very limited due to body habitus. However, no discrete renal mass or hydronephrosis is appreciated. The right kidney measures 10.4 cm and the left kidney measures 9 cm in the greatest longitudinal axes. Right renal cortex measures 1.1 cm and the left renal cortex measures 0.7 cm in thickness. There is a Bhardwaj catheter in the urinary bladder and the bladder is nondistended. IMPRESSION: Very limited visualization of the left kidney due to body habitus. Unremarkable renal ultrasound, otherwise. Electronically signed by John Boogie 06/09/2019 5:04 PM
[2019-06-10] MEDS: ATIVAN IV PRN (02:00)
[2019-06-10] MEDS: ZOSYN 3.375 GM in NS 50 ML IV SCH ×4 (02:00→19:24)
[2019-06-10] MEDS: DUONEB (A & A) INH SCH ×6 (03:34→23:15)
[2019-06-10 05:19] LABS: ALLEN TEST YES; BE 9.6 mmoll (-3.0-3.0); BLOOD TYPE ARTERIAL; HCO3-(ACT) 32.4 mmoll (20.0-26.0); METHB 1.2 % (0.0-1.5); O2(CT) 15.2 mL/dL (15.0-23.0); O2HB 96.9 % (95.0-99.0); PCO2(98.6) 33 mmHg (35-45); PO2(98.6) 94 mmHg (60-100); SAMPLE BLOOD; SAO2 99.5 % (95.0-100.0); SRATE 14 BPM; THB 11.1 g/dL (11.5-17.4); TVOL 700 mL
[2019-06-10 05:20] LABS: MODALITY VENTILATOR; pH(98.6) 7.59 (7.35-7.45)
[2019-06-10 06:22] LABS: HEMATOCRIT 34.6 % (37.0-47.0); HEMOGLOBIN 10.6 g/dL (12.0-16.0); MCH 28.8 PG (27-31); MCHC 30.6 g/dL (33-37); MPV 10.7 FL (7.4-10.4); RBC 3.68 XMIL (4.2-5.4); RDW 15.3 % (11.5-14.5); WBC 9.37 X1000 (4.8-10.8)
[2019-06-10 06:56] LABS: ALB/GLOB RATIO 0.9; ALBUMIN 3.6 g/dL (3.5-5.0); CALCIUM 9.3 mg/dL (8.8-10.2); CREATININE 1.3 mg/dL (0.5-0.9); POTASSIUM 3.8 mmol/L (3.5-5.1); TOTAL BILIRUBIN 0.42 mg/dL (0.20-1.00); TOTAL PROTEIN 7.6 g/dL (6.3-8.3)
[2019-06-10] MEDS: MUCOMYST 20% INH SCH ×2 (07:25→19:16)
--- NOTE | 2019-06-10 07:47 | Diag Imaging Result Doc PS360 ---
CHEST-PORTABLE - 06/10/2019 INDICATION: Vent Protocol/ New NG tube placement COMPARISON: 06/09/2019 FINDINGS: Support lines and tubes are stable and in good position. Stable severely low lung volumes. Stable central bronchovascular crowding versus mild pulmonary edema. Heart size remains normal. No large pleural effusion. IMPRESSION: No change from prior. Electronically signed by Nitin Barillas 06/10/2019 7:44 AM
--- NOTE | 2019-06-10 08:31 | PROGRESS NOTE ---
DATE: 06/10/2019 SUBJECTIVE: This patient is still on mechanical ventilation. She is alert. She is following commands for me. She is moving all 4 extremities, but she is on 100% FiO2. Pulmonary Department on board. We stopped her Lasix because of an acute kidney injury. Her BUN and creatinine are better compared with yesterday, but the sodium level is 150. I will let Nephrology Department to decide further management. OBJECTIVE: Vital Signs: Temperature 98.2 degrees, pulse 79, respiratory rate 14, blood pressure 105/59, oxygen saturation 95% on mechanical ventilation. HEENT: Head normocephalic, no trauma. PERRLA. I cannot see JVD because of her neck size. Central trachea. Chest: Coarse breath sounds bilaterally with rhonchi at the bases. Abdomen: Soft, obese, protuberant, nontender, nondistended. No hepatosplenomegaly. Extremities: No edema. No clubbing. No cyanosis. Neurological: The patient is awake. She is following commands for me. She moves all 4 extremities spontaneously. She has Down syndrome. LABORATORY: WBC 9.3, hemoglobin 10.6, hematocrit 34.6, platelets 290,000. Sodium 150, potassium 3.8, chloride 104, bicarbonate 31, BUN 47, creatinine 1.3, glucose 222, calcium 9.3. ASSESSMENT AND PLAN: 1. Acute hypoxemic and hypercarbic respiratory failure. This is likely a combination of pneumonia and pulmonary edema. She is still on mechanical ventilation and her FiO2 requirement is 100%. She was extubated last week and reintubated again. For now will continue with same management. Pulmonary Department following this patient closely. 2. Community-acquired pneumonia. Continue with antibiotics per Infectious Disease Department. Recent CT scan showed significant worsening of bilateral lower lobe consolidation concerning for pneumonia or aspiration, interstitial pulmonary edema and stable mediastinal lymphadenopathy. 3. Down syndrome, aware. Continue to monitor. 4. Acute kidney injury, probably due to medications. It could be also prerenal versus acute tubular necrosis. Her BUN and creatinine are better compared with yesterday. She is not receiving Lasix and her urine output is around 830 in the past 24 hours. I will monitor and I will let Nephrology Department to continue her management. 5. Hypernatremia. I will ask the robotics specialist to increase the water through the NG tube and monitor. 6. Nutritional status. This patient is getting nutrition through her NG tube. Will continue with same management. She seems to be tolerating this. 7. Morbid obesity with a body mass index of 48.4, aware. CRITICAL CARE TIME: 35 minutes. cc: Pepe Etienne MD
[2019-06-10] MEDS: LASIX IV SCH ×3 (09:21→21:48)
[2019-06-10] MEDS: DULCOLAX PR PRN (11:41)
--- NOTE | 2019-06-10 11:56 | PROVIDER PROGRESS NOTE ---
Progress Note Subjective: Alert but on the vent. Objective: General: Young white female lying in bed in no acute distress HEENT: Normocephalic, atraumatic. Trachea midline. Pupils equal and reactive to light. Mucous membranes moist. Skin: warm and dry Neck: Supple, unable to determine JVP. Cardiovascular: S1S2, regular rate and rhythm, no murmur or gallop. Respiratory: Bilateral Coarse rhonchi anteriorly. Abdomen: soft, obese, nontender, nondistended. bowel sounds present. : non-inspected, salgado in place Extremities: no clubbing or cyanosis. Trace edema to BLE. Neurological: able to shake her head yes or no, opens eyes to verbal commands. Impression: Acute kidney injury. Likely prerenal. Labs improved with withholding her diuretics but her volume status is worse today. Restart lasix. Blood pressure. Stable. Mild Hypernatremia. Observe for now. Fluid volume. Worsening respiratory status. Restart lasix. Medication review. No changes.
--- NOTE | 2019-06-10 12:53 | INFECTIOUS DISEASE PROGRESS NO ---
DATE: 06/10/2019 PRESENT ILLNESS: Patient has bilateral pneumonia. The chest x-ray from today states that the infiltrates are stable. MEDICATION: This is day 2 of treatment with the Zosyn. PHYSICAL EXAMINATION: Vital Signs: Temperature is 98 degrees, pulse 90, respirations 15, blood pressure 105/59. General: This is a somewhat ill-appearing, young female. She is in no acute distress. Head, Eyes, Ears, Nose, and Throat: The patient has an orotracheal tube and a nasogastric tube in place. No drainage is noted from the nose or ears. Neck: She does not seem to have any pain when she turns her neck. Lungs: Bilateral rhonchi. Cardiovascular: Heart rate is regular. Abdomen: Soft and nontender. Neurologic: The patient is awake today. She did follow requests to move her extremities. The patient does not have a tremor. Integument: No rash noted. LAB AND X-RAY: Chest x-ray, she has stable bilateral bronchovascular crowding versus pulmonary edema. Liver function studies are normal. Creatinine is 1.3. GFR is 49. CBC has a white count of 9370, hemoglobin 10.6, and platelet count 290,000. ASSESSMENT AND PLAN: The patient has bilateral pneumonia. I plan on continuing Zosyn. I have ordered a procalcitonin level since the patient still does have bilateral congestion. COMORBIDITIES: The patient has Down syndrome. cc: Avinash Olmedo MD
[2019-06-10] MEDS: LOVENOX SUBQ SCH (16:42)
[2019-06-10] MEDS: SODIUM CHLORIDE 0.9% INJ SCH (16:42)
[2019-06-10] MEDS: PROTONIX IV SCH (16:42)
[2019-06-10] MEDS ORDERED: CATHFLO IV ONE (21:29)
[2019-06-10] MEDS ORDERED: STERILE WATER INJ. INJ ONE (21:29)
[2019-06-11] MEDS: ZOSYN 3.375 GM in NS 50 ML IV SCH ×5 (00:45→19:39)
[2019-06-11] MEDS: ATIVAN IV PRN ×2 (00:49→07:42)
[2019-06-11] MEDS: DUONEB (A & A) INH SCH ×5 (03:27→23:38)
[2019-06-11 06:02] LABS: HEMATOCRIT 34.2 % (37.0-47.0); HEMOGLOBIN 10.6 g/dL (12.0-16.0); MCH 29.3 PG (27-31); MCV 94.5 FL (81-99); MPV 11.4 FL (7.4-10.4); RBC 3.62 XMIL (4.2-5.4); RDW 15.6 % (11.5-14.5); WBC 9.55 X1000 (4.8-10.8)
[2019-06-11 06:32] LABS: ALB/GLOB RATIO 0.8; ALBUMIN 3.6 g/dL (3.5-5.0); CREATININE 1.5 mg/dL (0.5-0.9); POTASSIUM 3.9 mmol/L (3.5-5.1); TOTAL BILIRUBIN 0.5 mg/dL (0.20-1.00); TOTAL PROTEIN 7.9 g/dL (6.3-8.3)
[2019-06-11] MEDS: MUCOMYST 20% INH SCH ×2 (07:20→19:37)
--- NOTE | 2019-06-11 07:21 | Diag Imaging Result Doc PS360 ---
EXAM: CHEST-PORTABLE HISTORY: Vent Protocol/ New NG tube placement TECHNIQUE: Chest single view COMPARISON: 06/10/2019 FINDINGS: No change in the endotracheal tube, nasogastric tube, the right-sided PICC line. No cardiomegaly. No pleural effusions identified. Small infiltrate or atelectasis in the mid lungs. IMPRESSION: Mild interval improvement. Electronically signed by Solomon Hutchison 06/11/2019 7:19 AM
[2019-06-11] MEDS: HALDOL IV PRN ×2 (09:37→16:18)
[2019-06-11] MEDS: MORPHINE IV PRN (10:32)
--- NOTE | 2019-06-11 10:55 | PROGRESS NOTE ---
DATE: 06/11/2019 SUBJECTIVE: This patient is still on mechanical ventilation. She is not sedated. Her FiO2 is 80% today, and her x-ray looks a little bit better compared with yesterday. For now, we will continue with same management. Creatinine increased a little bit compared with yesterday. BUN decreased a little bit also. Nephrology Department on board. Sodium level improving, and compared with yesterday decreased from 150 to 148. OBJECTIVE: Vital Signs: Temperature 98.2 degrees, pulse 91, respiratory rate 16, blood pressure 114/67, oxygen saturation 97% on mechanical ventilation. HEENT: Head normocephalic, no trauma. PERRLA. Neck: I cannot see JVD because of her neck size and position. Central trachea. Chest: Coarse breath sounds bilaterally with scattered rhonchi. Abdomen: Soft, obese, protuberant, nontender, nondistended. No hepatosplenomegaly. Extremities: No edema, no clubbing, no cyanosis. Neurological examination: The patient is awake. She is following commands. She moves all 4 extremities spontaneously. She has Down syndrome. LABORATORY: WBC 9.5, hemoglobin 10.6, hematocrit 34.2, platelets 325. Sodium 148, potassium 3.9, chloride 100, bicarbonate 32. BUN 45, creatinine 1.5, glucose 214, calcium 10. ASSESSMENT AND PLAN: 1. Acute hypoxemic and hypercarbic respiratory failure, likely a combination of pneumonia and pulmonary edema. She is still on mechanical ventilation. FiO2 decreased from 100% to 80%. She was extubated last week and reintubated again. For now, we will continue with same management. Pulmonary Department on board. 2. Community-acquired pneumonia. Continue with antibiotics per Infectious Disease Department. 3. Down syndrome. Aware. 4. Acute kidney injury. Nephrology Department on board; we will follow their recommendations. 5. Hypernatremia. We increased a little bit the water intake; also she is getting some Lasix. The sodium level decreased compared with yesterday a little bit. We will monitor for now. 6. Nutritional status: This patient is getting nutrition through the nasogastric tube. Continue with same management. 7. Morbid obesity with a body mass index of 48.4. Aware. CRITICAL CARE TIME: 32 minutes. cc: Pepe Etienne MD
[2019-06-11] MEDS: LASIX IV SCH ×2 (11:26→22:00)
[2019-06-11] MEDS: PROTONIX IV SCH (15:53)
[2019-06-11] MEDS: LOVENOX SUBQ SCH (15:53)
[2019-06-12] MEDS: ZOSYN 3.375 GM in NS 50 ML IV SCH ×2 (02:30→08:12)
[2019-06-12] MEDS: ATIVAN IV PRN (02:31)
[2019-06-12] MEDS: DUONEB (A & A) INH SCH ×6 (03:41→23:40)
[2019-06-12 04:37] LABS: ALLEN TEST YES; BLOOD TYPE ARTERIAL; HCO3-(ACT) 35.1 mmoll (20.0-26.0); METHB 1.1 % (0.0-1.5); O2(CT) 15.8 mL/dL (15.0-23.0); O2HB 96.9 % (95.0-99.0); PCO2(98.6) 34 mmHg (35-45); PO2(98.6) 186 mmHg (60-100); SAMPLE BLOOD; SAO2 99.7 % (95.0-100.0); SRATE 14 BPM; THB 11.3 g/dL (11.5-17.4); TVOL 700 mL
[2019-06-12 04:39] LABS: MODALITY VENTILATOR; pH(98.6) 7.62 (7.35-7.45)
[2019-06-12 05:59] LABS: HEMATOCRIT 33.8 % (37.0-47.0); HEMOGLOBIN 10.2 g/dL (12.0-16.0); MCH 28.5 PG (27-31); MCHC 30.2 g/dL (33-37); MCV 94.4 FL (81-99); MPV 11.5 FL (7.4-10.4); RBC 3.58 XMIL (4.2-5.4); RDW 15.5 % (11.5-14.5); WBC 9.81 X1000 (4.8-10.8)
[2019-06-12 06:23] LABS: MAGNESIUM 2.9 mg/dL (1.5-2.7); PHOSPHORUS 6.9 mg/dL (2.7-4.5)
[2019-06-12 06:49] LABS: ALB/GLOB RATIO 0.8; ALBUMIN 3.4 g/dL (3.5-5.0); CALCIUM 9.4 mg/dL (8.8-10.2); CREATININE 1.7 mg/dL (0.5-0.9); TOTAL BILIRUBIN 0.45 mg/dL (0.20-1.00); TOTAL PROTEIN 7.6 g/dL (6.3-8.3)
--- NOTE | 2019-06-12 07:20 | Diag Imaging Result Doc PS360 ---
EXAM: CHEST-PORTABLE HISTORY: Vent Protocol/ New NG tube placement TECHNIQUE: Single view COMPARISON: 06/11/2019 FINDINGS: No change in the endotracheal tube, nasogastric tube, the right-sided PICC line. The lungs are poorly expanded. Heart is borderline mildly prominent. Mild vascular distention. No pleural effusions identified. No consolidation. IMPRESSION: No interval improvement Electronically signed by Solomon Hutchison 06/12/2019 7:17 AM
[2019-06-12] MEDS: MUCOMYST 20% INH SCH ×2 (07:45→19:37)
[2019-06-12] MEDS ORDERED: 1/2 NS 1,000 ML IV SCH (08:00)
--- NOTE | 2019-06-12 08:21 | PROGRESS NOTE ---
DATE: 06/12/2019 SUBJECTIVE: Patient is still on mechanical ventilation, 80% FiO2. She is still hypernatremic, and her BUN and creatinine went up from 1.5 to 1.7. She does have an acute kidney injury. On the other hand, she has been having some liquid bowel movement. It looks like she is intravascularly depleted. I will give her some fluids, half-NS. Nephrology Department on board; I appreciate their recommendations. I will continue with nutrition through the NG tube. OBJECTIVE: Vital Signs: Temperature 97.1 degrees, pulse 104, respiratory rate 19, blood pressure 99/55, oxygen saturation 94% on mechanical ventilation, 80% FiO2. HEENT: Head normocephalic, no trauma. PERRLA. Neck: Supple. I cannot see JVD because of her neck size. Central trachea. Chest: Coarse breath sounds bilaterally with scattered rhonchi. Abdomen: Soft, obese, protuberant, nontender, nondistended. No hepatosplenomegaly. Extremities: No edema, no clubbing, no cyanosis. Neurological examination: The patient is awake. She seems to be weak and she is following commands on and off for me today. LABORATORY: WBC 9.8, hemoglobin 10.2, hematocrit 33.8, 33.8, platelets 301. Sodium 149, potassium 4, chloride 100, bicarbonate 30. BUN 53, creatinine 1.7, glucose 257, calcium 9.4, magnesium 2.9, albumin 3.4, phosphorus 6.9. ASSESSMENT AND PLAN: 1. Acute hypoxemic hypercarbic respiratory failure. She is alkalotic; this is likely a combination of pneumonia and pulmonary edema. She is still on mechanical ventilation. FiO2 in the 80%; as per the nurse, they have been trying to decrease it to 70%, but she is not tolerating that. She was extubated a few days ago and she was reintubated again. For now we will continue following the recommendations of Pulmonary Department. 2. Community-acquired pneumonia. Continue with the same management per Infectious Disease Department. 3. Down syndrome. Aware. 4. Acute kidney injury. Nephrology Department on board. I will hold the Lasix at this moment. She seems to be a little bit intravascular depleted, so I will give her some fluids with half- normal saline, and I will monitor. 5. Hypernatremia. Still high, but stable. Continue with water through the nasogastric tube, and now she will receive a liter of fluids. 6. Nutritional status: Continue with nutrition through the nasogastric tube. 7. Diarrhea. Apparently she started having some diarrhea. We will continue to monitor probably due to the nutrition. 8. Morbid obesity with a body mass index of 48.4. Aware. cc: Pepe Etienne MD
--- NOTE | 2019-06-12 11:37 | INFECTIOUS DISEASE PROGRESS NO ---
DATE: 06/12/2019 PRESENT ILLNESS: Ms. Chamberlain is being treated for bilateral pneumonia. MEDICATIONS: Today is day 4 of Zosyn. PHYSICAL EXAMINATION: Vital Signs: Temperature is 97.1 degrees, pulse rate 89, respiratory rate 17l, blood pressure 110/63. O2 saturation is 96% on 90% FiO2 on the mechanical ventilator. General: This is an acutely ill-appearing, morbidly obese young female. She is lying in bed, currently in no acute distress. HEENT: Atraumatic, normocephalic. Oral mucous membranes are pink and moist. Conjunctivae are pink. Neck: Supple. Trachea is midline. Cardiovascular: Heart rate and rhythm are regular. Normal sinus rhythm on the monitor. Respiratory: Lung sounds have some scattered rales noted bilaterally. Diminished in the bases. No work of breathing is noted. She is breathing above the set rate on the ventilator. Abdomen: Soft, obese and nontender. Bowel sounds are active. Integumentary: Skin is warm and dry. She has a PICC line in place to the right upper arm. The site is without edema, erythema, or drainage. Neurologic: She is awake, alert, and responsive. She will squeeze with both hands and move her lower extremities on command. She does shake her head yes or no to questions. LABORATORY AND X-RAY: Today her white count is 9.81, hemoglobin 10.2, platelet count 301,000. pH is 7.62, pCO2 34, PO2 186 on 80% FiO2 on the vent. Creatinine today is 1.7 with a GFR of 36. Total bilirubin is 0.45, AST 18, ALT 29, alkaline phosphatase 64. Blood urine and sputum have shown no growth on this admission. Chest x-ray today shows no interval improvement with vascular distention and lungs poorly expanded. ASSESSMENT AND PLAN: Ms. Chamberlain is being treated for bilateral pneumonia with no improvement on the chest x-ray. She also has an acute kidney injury which has gotten slightly worse with GFR down to 36. Today, we will decrease her Zosyn to 2.25 g IV every 6 hours and add Zyvox 600 mg IV every 12 hours. We are awaiting a return of procalcitonin level which has been drawn but has not resulted yet. These plans have been discussed with and recommended by Dr. Olmedo. COMORBIDITIES: For Ms. Chamberlain include Down syndrome and morbid obesity. Dictated by LAITH Wu for Avinash Olmedo MD cc: [facility]medo MD [facility]
[2019-06-12] MEDS: ZOSYN 2.25 GM in NS 50 ML IV SCH ×2 (15:02→21:34)
[2019-06-12] MEDS: ZYVOX 600 MG/D5W 600 MG/300 ML IVPB IV SCH (15:02)
[2019-06-12] MEDS: PROTONIX IV SCH (15:09)
[2019-06-12] MEDS: LOVENOX SUBQ SCH (15:10)
--- NOTE | 2019-06-12 15:15 | NEPHROLOGY PROGRESS NOTE ---
DATE: 06/12/2019 SUBJECTIVE: She is awake and alert. Nods to questions. Still on a ventilator. OBJECTIVE: Vital Signs: Blood pressure 109/68, heart rate 97, respiration 18, afebrile. General: No acute distress. Skin: Warm and dry. Neck: Neck veins are not visible. Heart: Regular. No gallops. Lungs: Equal. No crackles. Abdomen: Obese, soft, nontender. Bowel sounds present. Extremities: With 1 to 2+ edema. No clubbing or cyanosis. IMPRESSION: Acute kidney injury. Her kidney function seems to be sensitive to diuretics. These have been withheld again today and she is receiving 1 L of IV fluids. We will observe her response to this. Unfortunately, she is developing hypernatremia as well. This is being addressed also with her IV fluids (half-normal saline). cc: Geovany Monzon MD
[2019-06-13] MEDS: ZYVOX 600 MG/D5W 600 MG/300 ML IVPB IV SCH ×2 (02:50→15:57)
[2019-06-13] MEDS: ZOSYN 2.25 GM in NS 50 ML IV SCH ×4 (02:51→20:44)
[2019-06-13 06:00] LABS: BE 10.2 mmoll (-3.0-3.0); BLOOD TYPE ARTERIAL; HCO3-(ACT) 32.9 mmoll (20.0-26.0); METHB 0.8 % (0.0-1.5); O2(CT) 11.8 mL/dL (15.0-23.0); O2HB 97.1 % (95.0-99.0); PO2(98.6) 114 mmHg (60-100); SAMPLE BLOOD; SAO2 99.9 % (95.0-100.0); SRATE 14 BPM; THB 8.5 g/dL (11.5-17.4); TVOL 500 mL; pH(98.6) 7.45 (7.35-7.45)
[2019-06-13 06:01] LABS: MODALITY VENTILATOR; PCO2(98.6) 51 mmHg (35-45)
[2019-06-13 06:02] LABS: ALLEN TEST YES
[2019-06-13] MEDS: DUONEB (A & A) INH SCH ×6 (06:19→23:28)
[2019-06-13 06:32] LABS: HEMATOCRIT 34.4 % (37.0-47.0); HEMOGLOBIN 10.4 g/dL (12.0-16.0); MCH 29.2 PG (27-31); MCHC 30.2 g/dL (33-37); MCV 96.6 FL (81-99); MPV 11.8 FL (7.4-10.4); RBC 3.56 XMIL (4.2-5.4); RDW 15.3 % (11.5-14.5); WBC 10.79 X1000 (4.8-10.8)
[2019-06-13 06:57] LABS: MAGNESIUM 2.9 mg/dL (1.5-2.7); PHOSPHORUS 5.6 mg/dL (2.7-4.5)
[2019-06-13 07:01] LABS: ALB/GLOB RATIO 0.9; ALBUMIN 3.4 g/dL (3.5-5.0); CALCIUM 9.3 mg/dL (8.8-10.2); CREATININE 1.3 mg/dL (0.5-0.9); POTASSIUM 3.9 mmol/L (3.5-5.1); TOTAL BILIRUBIN 0.3 mg/dL (0.20-1.00); TOTAL PROTEIN 7.3 g/dL (6.3-8.3)
[2019-06-13] MEDS: MUCOMYST 20% INH SCH ×2 (07:41→19:17)
--- NOTE | 2019-06-13 07:48 | Diag Imaging Result Doc PS360 ---
EXAM: CHEST-PORTABLE - 06/13/2019 HISTORY: Vent Protocol/ New NG tube placement TECHNIQUE: Portable chest COMPARISON: 06/12/2019 FINDINGS: Endotracheal tube and PICC remain in place. The tip of the nasogastric tube is at the expected location of the mid stomach. Inspiration is somewhat shallow. There are hazy bilateral infiltrates which are most prominent on the right. There is no substantial pleural effusion or pneumothorax identified. IMPRESSION: Tip of nasogastric tube in mid stomach. Somewhat shallow inspiration. Hazy bilateral infiltrates, most prominent on the right. Electronically signed by Mateo Mann 06/13/2019 7:46 AM
[2019-06-13 07:56] LABS: PREALBUMIN 15.9 mg/dL (20-40)
--- NOTE | 2019-06-13 08:08 | PROGRESS NOTE ---
DATE: 06/13/2019 SUBJECTIVE: This patient is still on mechanical ventilation, FiO2 80%. The hypernatremia seems to be better, as well as the BUN and creatinine. I will continue with same management for now. Nephrology Department on board. OBJECTIVE: Vital Signs: Temperature 99.5 degrees, pulse 86, respiratory rate 19, blood pressure 106/54 oxygen saturation 95% on mechanical ventilation. HEENT: Head normocephalic, no trauma. PERRLA. Neck: Supple. I cannot see JVD because of her neck size. Central trachea. Chest: Coarse breath sound bilaterally with scattered rhonchi. Abdomen: Soft, obese, protuberant. Nontender, nondistended. No hepatosplenomegaly. Extremities: No edema, no clubbing, no cyanosis. Neurological examination: The patient is awake. She is following commands for me today. She moves all 4 extremities. LABORATORY: WBC 10.7, hemoglobin 10.4, hematocrit 34.4, platelets 293. Sodium 146, potassium 3.9, chloride 100, bicarbonate 29. BUN 44, creatinine 1.3, glucose 202, calcium 9.3, phosphorus 5.6, magnesium 2.9, albumin 3.4. ASSESSMENT AND PLAN: 1. Acute hypoxemic hypercarbic respiratory failure. We will continue with same management for now. She is on mechanical ventilation. FiO2 is 80%. Pulmonary Department on board. 2. Community-acquired pneumonia. Continue with same management per Infectious Disease Department. 3. Down syndrome. Aware. 4. Acute kidney injury. She is getting better. I stopped her Lasix yesterday and gave her a little bit of fluids. She seems to be better today. She is really sensitive to the furosemide. 5. Hypernatremia, improving, still a little bit high though. We have increased a couple days ago the amount of free water through the nasogastric tube, and she received a bolus of half normal saline. 6. Nutritional status: Continue with same management. 7. Diarrhea seems to be improving, but she is still having liquid bowel movements. No blood. 8. Morbid obesity with a body mass index of 46.9. Aware. cc: Pepe Etienne MD
[2019-06-13 14:18] LABS: ALLEN TEST NO; BE 10.8 mmoll (-3.0-3.0); BLOOD TYPE ARTERIAL; HCO3-(ACT) 33.3 mmoll (20.0-26.0); MODALITY VENTILATOR; O2(CT) 15.6 mL/dL (15.0-23.0); O2HB 96.1 % (95.0-99.0); PCO2(98.6) 48 mmHg (35-45); PO2(98.6) 89 mmHg (60-100); SAMPLE BLOOD; SAO2 98.9 % (95.0-100.0); THB 11.5 g/dL (11.5-17.4); pH(98.6) 7.48 (7.35-7.45)
--- NOTE | 2019-06-13 14:34 | NEPHROLOGY PROGRESS NOTE ---
DATE: 06/13/2019 SUBJECTIVE: She is awake, alert, on the ventilator. OBJECTIVE: Vital Signs: Blood pressure 111/57, heart rate 85, respiration 4, consistently 17-21 previously, afebrile. General: No acute distress. She is awake, alert, looks at me, makes hand signals. Neck: Neck veins are not appreciated. Heart: Regular. Lungs: Equal, mild scattered crackles. Abdomen: Soft, nontender. Bowel sounds present. Extremities: With trace edema. No clubbing or cyanosis. IMPRESSION: Acute kidney injury. Her creatinine is down to 1.3 today, BUN 44. She is slowly weaning her FiO2 down to 60% at this time. We will follow. cc: Geovany Monzon MD
[2019-06-13] MEDS ORDERED: 1/2 NS 1,000 ML IV SCH (15:15)
[2019-06-13] MEDS: LOVENOX SUBQ SCH (15:57)
[2019-06-13] MEDS: PROTONIX IV SCH (15:59)
[2019-06-14] MEDS: ZOSYN 2.25 GM in NS 50 ML IV SCH ×4 (02:57→20:19)
[2019-06-14] MEDS: ZYVOX 600 MG/D5W 600 MG/300 ML IVPB IV SCH ×2 (02:57→15:38)
[2019-06-14] MEDS: DUONEB (A & A) INH SCH ×6 (03:36→23:20)
[2019-06-14 05:06] LABS: ALLEN TEST YES; BE 7.7 mmoll (-3.0-3.0); BLOOD TYPE ARTERIAL; HCO3-(ACT) 30.9 mmoll (20.0-26.0); METHB 1.3 % (0.0-1.5); O2(CT) 15.2 mL/dL (15.0-23.0); O2HB 94.9 % (95.0-99.0); PCO2(98.6) 50 mmHg (35-45); PO2(98.6) 83 mmHg (60-100); SAMPLE BLOOD; THB 11.3 g/dL (11.5-17.4); pH(98.6) 7.43 (7.35-7.45)
[2019-06-14 05:07] LABS: MODALITY HIGH FLOW NASAL CAN
--- NOTE | 2019-06-14 06:02 | Diag Imaging Result Doc PS360 ---
EXAM: CHEST-PORTABLE HISTORY: Vent Protocol/ New NG tube placement TECHNIQUE: Single view COMPARISON: 06/13/2019 FINDINGS: Poor inspiratory effort. The nasogastric and endotracheal tubes have been removed. No change in the right-sided PICC line. The lung infiltrates are less pronounced on the current exam. Questionable tiny left pleural effusion. Heart is mildly prominent. IMPRESSION: Mild interval improvement Electronically signed by Solomon Hutchison 06/14/2019 6:00 AM
[2019-06-14 06:43] LABS: HEMATOCRIT 35.2 % (37.0-47.0); HEMOGLOBIN 10.3 g/dL (12.0-16.0); MCHC 29.3 g/dL (33-37); MCV 95.7 FL (81-99); MPV 11.9 FL (7.4-10.4); RBC 3.68 XMIL (4.2-5.4); RDW 14.9 % (11.5-14.5); WBC 10.92 X1000 (4.8-10.8)
[2019-06-14 07:01] LABS: ALB/GLOB RATIO 0.9; ALBUMIN 3.5 g/dL (3.5-5.0); CALCIUM 9.5 mg/dL (8.8-10.2); CREATININE 1.2 mg/dL (0.5-0.9); TOTAL BILIRUBIN 0.34 mg/dL (0.20-1.00); TOTAL PROTEIN 7.6 g/dL (6.3-8.3)
[2019-06-14] MEDS: MUCOMYST 20% INH SCH ×2 (07:24→19:30)
--- NOTE | 2019-06-14 08:20 | PROGRESS NOTE ---
DATE: 06/14/2019 SUBJECTIVE: This patient had been extubated yesterday and now she is on a high-flow oxygen. She seems to be tolerating this. She seems to be awake. I discussed the case with her nurse at the bedside and we will probably start feeding this patient today by mouth. We will give her some thick liquids to start with at the bedside to see how she does. Probably tomorrow, we will get a formal swallow evaluation. She seems to be stable. OBJECTIVE: Vital Signs: Temperature 98.1 degrees, pulse 87, respiratory rate 18, blood pressure 133/67, oxygen saturation 100% on the high-flow cannula. HEENT: Head normocephalic. No trauma. PERRLA. Neck: Supple. No JVD. No masses. Central trachea. Chest: Coarse breath sounds bilaterally with scattered rhonchi. Abdomen: Soft, obese, protuberant, nontender, nondistended. No hepatosplenomegaly. Extremities: No edema, no clubbing, no cyanosis. Neurological Examination: This patient is awake. She is following commands for me today. She moves all 4 extremities. She has Down syndrome. Laboratory: WBC 10.9, hemoglobin 10.3, hematocrit 35.2, and platelets 304,000. Sodium 145, potassium 4, chloride 100, bicarbonate 29, BUN 36, creatinine 1.2, glucose 158, calcium 9.5. AST 21, ALT 39, alkaline phosphatase 52. ASSESSMENT AND PLAN: 1. Acute hypoxemic and hypercarbic respiratory failure. This patient had been extubated yesterday. She seems to be doing fine on high-flow nasal cannula. We will continue with the same management. Pulmonary department is following this patient closely. 2. Community-acquired pneumonia. Continue with the same management per infectious disease department. 3. Acute kidney injury. This is getting better. Continue to monitor. We will start a diet today. 4. Down syndrome. Aware. 5. Hypernatremia, resolved, is borderline high though. We will start this patient on a liquid diet today. 6. Nutritional status. This patient has been extubated. We will try to feed her by mouth today with a thick liquid diet, as discussed with the nurse. 7. Diarrhea, seems to be improving. 8. Morbid obesity with a body mass index of 46.9. Aware. cc: Pepe Etienne MD
[2019-06-14] MEDS: D5 1/2 NS 1,000 ML IV SCH (09:06)
[2019-06-14] MEDS: SODIUM CHLORIDE 0.9% INJ SCH (15:38)
[2019-06-14] MEDS: PROTONIX IV SCH (15:38)
[2019-06-14] MEDS: LOVENOX SUBQ SCH (15:38)
[2019-06-14] MEDS: ATIVAN IV PRN (18:00)
[2019-06-14] MEDS: HALDOL IV PRN (19:28)
[2019-06-15] MEDS: ZOSYN 2.25 GM in NS 50 ML IV SCH ×4 (02:37→20:33)
[2019-06-15] MEDS: ZYVOX 600 MG/D5W 600 MG/300 ML IVPB IV SCH ×2 (02:37→15:30)
[2019-06-15] MEDS: DUONEB (A & A) INH SCH ×6 (03:15→23:20)
[2019-06-15] MEDS: HALDOL IV PRN ×2 (03:53→10:40)
[2019-06-15] MEDS: D5 1/2 NS 1,000 ML IV SCH ×2 (04:25→18:10)
[2019-06-15 04:31] LABS: ALLEN TEST YES; BE 5.6 mmoll (-3.0-3.0); BLOOD TYPE ARTERIAL; HCO3-(ACT) 29.2 mmoll (20.0-26.0); O2(CT) 14.5 mL/dL (15.0-23.0); O2HB 91.1 % (95.0-99.0); PO2(98.6) 63 mmHg (60-100); SAMPLE BLOOD; SAO2 94.4 % (95.0-100.0); THB 11.3 g/dL (11.5-17.4); pH(98.6) 7.38 (7.35-7.45)
[2019-06-15 04:33] LABS: MODALITY HIGH FLOW NASAL CAN; PCO2(98.6) 54 mmHg (35-45)
[2019-06-15 05:16] LABS: HEMATOCRIT 34.3 % (37.0-47.0); HEMOGLOBIN 10.4 g/dL (12.0-16.0); MCH 28.5 PG (27-31); MCHC 30.3 g/dL (33-37); MPV 11.2 FL (7.4-10.4); RBC 3.65 XMIL (4.2-5.4); WBC 9.44 X1000 (4.8-10.8)
[2019-06-15 05:43] LABS: AGAP 14; ALB/GLOB RATIO 0.9; ALBUMIN 3.4 g/dL (3.5-5.0); ALKALINE PHOSPHATASE 46 U/L (32-104); BUN 28 mg/dL (8-22); CALCIUM 9.5 mg/dL (8.8-10.2); CHLORIDE 101 mmol/L (98-107); COSMO 293; ESTIMATED GFR > 60; GLUCOSE 150 mg/dL (70-104); GOT 16 U/L (10-30); GPT 33 U/L (10-36); POTASSIUM 3.8 mmol/L (3.5-5.1); SODIUM 143 mmol/L (136-145); TCO2 28 mmol/L (25-35); TOTAL BILIRUBIN 0.28 mg/dL (0.20-1.00); TOTAL PROTEIN 7.1 g/dL (6.3-8.3)
--- NOTE | 2019-06-15 07:51 | Diag Imaging Result Doc PS360 ---
EXAM: CHEST-PORTABLE INDICATION: Vent Protocol/ New NG tube placement TECHNIQUE: One view COMPARISON: 06/14/2019 FINDINGS: The right PICC line is stable. No NG tube or ET tube is identified. The lung volumes are very low similar to the previous study. There has been slight improvement of bilateral infiltrates as compared to the previous study. No new consolidation is identified. Cardiac silhouette is stable. IMPRESSION: Interval slight improvement of bilateral infiltrates. Essentially stable, otherwise. Electronically signed by John Boogie 06/15/2019 7:48 AM
[2019-06-15] MEDS: MUCOMYST 20% INH SCH ×2 (07:52→19:30)
--- NOTE | 2019-06-15 07:54 | PROGRESS NOTE ---
DATE: 06/15/2019 SUBJECTIVE: This patient had been extubated 2 days ago. Now she is on a high-flow nasal cannula. She is sleepy at this moment. She has been agitated and she received a dose of Haldol during the night. Her BUN and creatinine are better. Her CO2 is a little bit higher today. I have placed this patient on a liquid diet with thick liquids and see how she does today. OBJECTIVE: Vital Signs: Temperature 97.3 degrees, pulse 69, respiratory rate 19, blood pressure 116/76, oxygen saturation 97% on a high flow basal cannula. HEENT: Head normocephalic. No trauma. PERRLA. Neck: Supple. No JVD. No masses. Central trachea. Chest: Coarse breath sounds bilaterally with scattered rhonchi. Abdomen: Soft, obese, protuberant, nontender, nondistended. No hepatosplenomegaly. Extremities: No edema, no clubbing, no cyanosis. Neurological Examination: This patient is sleepy, a little bit arousable, but she is not following commands. She is falling right back to sleep again. She moves all 4 extremities spontaneously. Laboratory: WBC 9.4, hemoglobin 10.4, hematocrit 34.3, platelets 303,000. Sodium 143, potassium 3.8, chloride 101, bicarbonate 28, BUN 28, creatinine 1, glucose 150, calcium 9.5, albumin 3.4. ASSESSMENT AND PLAN: 1. Acute hypoxemic and hypercarbic respiratory failure. She is slightly hypercarbic today. This patient had been extubated 2 days ago. She seems to be doing fine with high-flow nasal cannula. We will continue with the same management. Pulmonary department is following this patient closely. 2. Community-acquired pneumonia. Continue with the same management per infectious disease department. 3. Acute kidney injury. This is getting better. She is really sensitive to Lasix. We will continue to monitor. 4. Down's syndrome. Aware. 5. Hypernatremia, resolved. 6. Nutritional status. This patient has been extubated and she is on a high-flow nasal cannula. We will try to feed her by mouth and I started this patient on a thick liquid diet. She is sleepy at this moment but we will see how she does during the day. In the meantime, I will continue with D5 half-normal saline at a low dose. Her BUN and creatinine are getting better. Actually, I already stopped the Lasix which we can restart as needed but, again, she is really sensitive to Lasix. It caused acute kidney injury. 7. Diarrhea, seems to be improving. 8. Morbid obesity with a body mass index of 46.9. 9. Agitation. She has been getting some doses with Haldol. We will continue to monitor. CRITICAL CARE TIME: 35 minutes. cc: Pepe Etienne MD
--- NOTE | 2019-06-15 09:16 | INFECTIOUS DISEASE PROGRESS NO ---
DATE: 06/15/2019 PRESENT ILLNESS: The patient has a bilateral pneumonia. MEDICATIONS: This is day 3 of Zyvox and day 7 of Zosyn. PHYSICAL EXAMINATION: Vital Signs: Temperature is 98 degrees, pulse 92, respirations 27, blood pressure 135/72. General: This is an ill-appearing obese, young female. She looks a lot better than she did yesterday and she is not nearly as dyspneic as she was yesterday and the day before. Head, Eyes, Ears, Nose, and Throat: She can hear my spoken words and see near objects. I did not notice any white patches in her mouth. Neck: No pain with movement. Lungs: Bilateral rhonchi. Cardiovascular: Heart rate is regular. Abdomen: Soft and nontender. Neurologic: The patient is awake. She did follow requests to open her mouth and move her extremities. There is no tremor. Extremities: The patient has a PICC in the right arm. The site is not erythematous or purulent. Neurologic: The patient is awake. She did follow requests to move her extremities. She does not have a tremor. LAB AND X-RAY: Chest x-ray shows improvement in the bilateral infiltrates. The patient's CBC shows a white count of 9440, hemoglobin 10.4, and platelet count 303,000. Blood gases show a pH of 7.38, a PO2 of 63, and a pCO2 of 54. Creatinine is 1. GFR is greater than 60. Liver function studies are normal. ASSESSMENT AND PLAN: The patient has a bilateral pneumonia. It is improving now. I plan to continue Zosyn and Zyvox. The patient's procalcitonin level is not yet back. COMORBIDITIES: The patient has Down syndrome and she is obese. cc: Avinash Olmedo MD
[2019-06-15] MEDS: PROTONIX IV SCH (16:05)
[2019-06-15] MEDS: LOVENOX SUBQ SCH (16:06)
--- NOTE | 2019-06-15 16:47 | PROVIDER PROGRESS NOTE ---
Progress Note Subjective: patient sitting up in bed. Denies any uremic complaints. Objective: temperature 97.3, pulse 94, respirations 24, blood pressure 118/72, 02 sat 91% on 65% high flow nasal cannula. General: Young white female lying in bed in no acute distress HEENT: Normocephalic, atraumatic. Trachea midline. Pupils equal and reactive to light. Mucous membranes moist. Skin: warm and dry Neck: Supple, unable to determine JVD. Cardiovascular: S1S2, regular rate and rhythm, no murmur or gallop. Respiratory: Bilateral Scattered rhonchi anteriorly. Abdomen: soft, obese, nontender, nondistended. bowel sounds present. : non-inspected, salgado in place Extremities: no clubbing or cyanosis. Trace edema to BLE. Neurological: alert, oriented to person and place. Labs: WBC 9.44, hemoglobin 10.4, hematocrit 34, platelet count 303, sodium 143, potassium 3.8, chloride 101, carbon dioxide 28, BUN 28, creatinine 1.0. Intake 2240, output 1200. Impression: Acute kidney injury. Resolved. We will sign off today. Blood pressure. Stable. Fluid volume. Euvolemic. Medication review. No changes.
[2019-06-15] MEDS ORDERED: LASIX IV ONE (21:28)
[2019-06-16] MEDS: HALDOL IV PRN ×2 (01:53→20:01)
[2019-06-16] MEDS: ZOSYN 2.25 GM in NS 50 ML IV SCH (03:03)
[2019-06-16] MEDS: ZYVOX 600 MG/D5W 600 MG/300 ML IVPB IV SCH (03:04)
[2019-06-16] MEDS: D5 1/2 NS 1,000 ML IV SCH ×3 (03:05→18:56)
[2019-06-16] MEDS: DUONEB (A & A) INH SCH ×7 (03:40→23:45)
[2019-06-16 05:36] LABS: HEMATOCRIT 32.9 % (37.0-47.0); HEMOGLOBIN 10.4 g/dL (12.0-16.0); MCH 29.5 PG (27-31); MCHC 31.6 g/dL (33-37); MCV 93.2 FL (81-99); MPV 11.3 FL (7.4-10.4); RBC 3.53 XMIL (4.2-5.4); RDW 13.7 % (11.5-14.5); WBC 10.35 X1000 (4.8-10.8)
[2019-06-16 06:00] LABS: PHOSPHORUS 5.2 mg/dL (2.7-4.5)
[2019-06-16 06:14] LABS: AGAP 14; ALBUMIN 3.7 g/dL (3.5-5.0); ALKALINE PHOSPHATASE 45 U/L (32-104); BUN 20 mg/dL (8-22); CALCIUM 9.1 mg/dL (8.8-10.2); CHLORIDE 97 mmol/L (98-107); COSMO 284; ESTIMATED GFR > 60; GLUCOSE 199 mg/dL (70-104); GOT 14 U/L (10-30); GPT 25 U/L (10-36); POTASSIUM 3.5 mmol/L (3.5-5.1); SODIUM 138 mmol/L (136-145); TCO2 27 mmol/L (25-35); TOTAL BILIRUBIN 0.25 mg/dL (0.20-1.00); TOTAL PROTEIN 7.3 g/dL (6.3-8.3)
--- NOTE | 2019-06-16 07:33 | PULMONOLOGY PROGRESS NOTE ---
DATE: 06/15/2019 SUBJECTIVE: The patient is awake and alert. She appears slightly frightened. She is on high- flow O2. OBJECTIVE: Blood pressure 132/82, heart rate 85, respiratory rate 31, oxygen saturation 96%. HEENT: Pupils are equal and reactive. Oropharynx appears clear. Neck is supple. Chest reveals coarse rhonchi bilaterally. Cardiac Examination: S1-S2. Abdomen is soft. Extremities reveal 1+ peripheral edema. Laboratories: Chest x-ray reveals slight decrease in bibasilar infiltrates. IMPRESSION: A 29-year-old with: 1. Bilateral pneumonia. 2. Down syndrome. 3. Morbid obesity. 4. Hypoxemic and hypercapnic respiratory failure. PLAN: 1. Continue current antibiotic regimen. 2. Continue bronchial hygiene. 3. Move out of bed as tolerated. 4. Cautious advancement of diet. cc: Charanjit Ray MD
--- NOTE | 2019-06-16 08:03 | Diag Imaging Result Doc PS360 ---
EXAM: CHEST-PORTABLE HISTORY: Vent Protocol/ New NG tube placement TECHNIQUE: Single view COMPARISON: 06/15/2019 FINDINGS: Poor inspiratory effort. The heart is borderline mildly prominent. No change in the right PICC line. There is no nasogastric tube. No effusions identified. No consolidation. IMPRESSION: No change. Electronically signed by Solomon Hutchison 06/16/2019 8:01 AM
[2019-06-16] MEDS: MUCOMYST 20% INH SCH ×2 (08:11→19:31)
[2019-06-16] MEDS ORDERED: LASIX IV ONE (09:06)
--- NOTE | 2019-06-16 10:23 | PROGRESS NOTE ---
DATE: 06/16/2019 SUBJECTIVE: The patient has been intubated 3 days ago. She continues to be on high-flow nasal cannula, but according to nursing staff, every time she got agitated her oxygen needs go up. She has been pulling her IV access line. No other issues noted. OBJECTIVE: Vital Signs: Temperature 98.2 degrees, heart rate 60, respiratory rate 21, blood pressure 111/58, O2 saturation 100% on high-flow nasal cannula 35 L/minute. General Examination: This is a 29-year-old morbidly obese female with history of Down's syndrome lying in bed in no acute distress. Cardiovascular: S1, S2 heard. No murmurs, gallops, or rubs. Regular rate and rhythm. Respiratory: Coarse breath sounds noted in both pulmonary mckinnon with scattered rhonchi as well. Patient is not using any accessory muscles or having work of breathing. Abdomen: Soft. Obese. Nontender to palpation. Bowel sounds present. No organomegaly. Extremities: No clubbing, cyanosis, or edema. Peripheral pulses present in both legs. Neurological: The patient is awake, follows basic commands. Moves 4 extremities spontaneously. LABORATORY DATA: White cell count 10.35, hemoglobin 10.4, hematocrit 32.9, platelets 310,000. Normal BMP. Glucose 199. Phosphorus 5.2. ASSESSMENT AND PLAN: 1. Acute hypoxemic and hypercapnic respiratory failure. There is no ABG from today, but from yesterday the CO2 level has been a little bit elevated. At this point, we will continue to monitor this patient in the intensive care unit. She continues to require high-flow nasal cannula. Pulmonary is following this patient. Will follow recommendations. 2. Community-acquired pneumonia. I think after she has been on antibiotics for a long period of time and considering that his x-ray returned clear, Dr. Olmedo of Infectious Disease has decided to stop antibiotics. 3. Acute kidney injury. Creatinine is almost back to normal. Continue to monitor. 4. Down syndrome. Aware. 5. Hypernatremia, resolved. 6. Nutritional status. The patient is on liquid diet with thick liquids. Will continue with the same management. 7. Diarrhea. ID has ordered C. difficile studies. Will see what they show. 8. Moderate obesity with body mass index of 46.9, aware. 9. Agitation. The patient has been receiving 5 mg of Haldol IV and that has been sedating her a lot, so with 2.5 mg q.6 hours p.r.n. according to nursing staff the patient is doing okay, so we are not going to make any changes to her current treatment. cc: Pastor Rm MD
[2019-06-16 10:31] LABS: INR 1.15; PROTIME 14.8 Seconds (11.0-16.0)
[2019-06-16] MEDS ORDERED: NS 250 ML ONE (14:29)
--- NOTE | 2019-06-16 14:58 | INFECTIOUS DISEASE PROGRESS NO ---
DATE: 06/16/2019 PRESENT ILLNESS: The patient is being treated for a bilateral pneumonia. The patient also has been having diarrhea. MEDICATIONS: This is day 4 of Zyvox and day 8 of Zosyn. PHYSICAL EXAMINATION: Vital Signs: Temperature is 98.8 degrees, pulse 79, respirations 21, blood pressure 117/69. General: This is a somewhat ill-appearing, obese, young female. She is in no acute distress and she continues to improve each day. Head, Eyes, Ears, Nose, and Throat: She can hear my spoken words and see near objects. I did not notice any white coating of her tongue. Neck: She turns her head without pain. Lungs: Clear to auscultation. Cardiovascular: Heart rate is regular. Abdomen: Soft and nontender. Neurologic: The patient is awake. She does not have a tremor. She did not follow my requests to move her extremities. Extremities: The patient pulled out her PICC from the right arm yesterday. LAB AND X-RAY: Chest x-ray shows no consolidation. The patient's CBC shows a white count of 10,350, hemoglobin 10.4, and platelet count 310,000. Creatinine is 1. GFR is greater than 60. Liver function studies are normal. ASSESSMENT AND PLAN: The patient's bilateral pneumonia has cleared. I have discontinued Zosyn and Zyvox. The patient is having diarrhea and I have ordered a stool for Clostridium difficile toxin and antigen, the results of which are pending. COMORBIDITIES: The patient has Down syndrome and she is obese. The patient does have diarrhea. I have ordered a Clostridium difficile toxin and antigen, the results of which are pending. cc: Avinash Olmedo MD
[2019-06-16] MEDS: LOVENOX SUBQ SCH (17:50)
[2019-06-16] MEDS: PROTONIX IV SCH (17:50)
--- NOTE | 2019-06-16 21:49 | Diag Imaging Result Doc PS360 ---
EXAM: CT HEAD W/O CONTRAST 06/16/2019 HISTORY: unequal pupils and headache TECHNIQUE: This exam was performed using automated exposure control, adjustment of mA or kV according to patient size, and/or use of iterative reconstruction technique. COMMENT: There are no previous studies available for comparison. There are some patchy lucencies present in the white matter of both hemispheres. There is a small lacune in the posterior left centrum semiovale ovale. There is no evidence of mass effect, bleed or hydrocephalus. No abnormal extra-axial fluid collections are present. There is a mucous retention cyst in the right maxillary sinus and also in the left sphenoid sinus. There is fluid in the mastoid air cells bilaterally. The calvarium is intact. IMPRESSION: Bilateral mastoid effusions. Chronic white matter changes. Further evaluation with MRI may be desirable. Electronically signed by Will Penn 06/16/2019 9:46 PM
[2019-06-17] MEDS: DUONEB (A & A) INH SCH ×5 (03:44→20:00)
[2019-06-17 05:20] LABS: HEMATOCRIT 35.1 % (37.0-47.0); MCH 28.6 PG (27-31); MCHC 31.3 g/dL (33-37); MCV 91.2 FL (81-99); MPV 11.2 FL (7.4-10.4); RBC 3.85 XMIL (4.2-5.4); RDW 13.8 % (11.5-14.5); WBC 10.24 X1000 (4.8-10.8)
[2019-06-17 05:55] LABS: AGAP 16; ALB/GLOB RATIO 1.1; ALKALINE PHOSPHATASE 48 U/L (32-104); BUN 19 mg/dL (8-22); CALCIUM 9.7 mg/dL (8.8-10.2); CHLORIDE 95 mmol/L (98-107); COSMO 281; CREATININE 0.9 mg/dL (0.5-0.9); ESTIMATED GFR > 60; GLUCOSE 116 mg/dL (70-104); GOT 13 U/L (10-30); GPT 24 U/L (10-36); POTASSIUM 3.2 mmol/L (3.5-5.1); SODIUM 139 mmol/L (136-145); TCO2 28 mmol/L (25-35); TOTAL BILIRUBIN 0.23 mg/dL (0.20-1.00); TOTAL PROTEIN 7.5 g/dL (6.3-8.3)
--- NOTE | 2019-06-17 06:09 | Diag Imaging Result Doc PS360 ---
EXAM: CHEST-PORTABLE HISTORY: Vent Protocol/ New NG tube placement TECHNIQUE: Single view COMPARISON: 06/16/2019 FINDINGS: Poor inspiratory effort. The heart is mildly prominent. There is pulmonary edema. No consolidation. No change right PICC line. IMPRESSION: Stable chest Electronically signed by Solomon Hutchison 06/17/2019 6:06 AM
--- NOTE | 2019-06-17 08:20 | PULMONOLOGY PROGRESS NOTE ---
DATE: 06/16/2019 SUBJECTIVE: The patient is awake and alert. She does not appear to be happy. Nursing staff reports she has had some difficulty with the high-flow nasal cannula and irritation. OBJECTIVE: Vital Signs: The patient has been afebrile for the last 24 hours. Blood pressure 134/104, heart rate 109, respiratory rate 19, oxygen saturation 96%. HEENT: Pupils are equal and reactive. Oropharynx appears clear. Neck: Neck is supple. Chest: Chest reveals shallow breath sounds bilaterally with occasional rhonchi. Cardiac exam: S1, S2. Abdomen: Abdomen is obese and soft. Extremities: Reveal 1+ peripheral edema. LABORATORIES: White blood count 10.35, hemoglobin 10.4, platelet count 310,000. Sodium 138, potassium 3.5, chloride 97, bicarbonate 27. BUN 20, creatinine 1.0. IMPRESSION: A 29-year-old with: 1. Bilateral pneumonia. 2. Hypoxemic and hypercapnic respiratory failure. 3. Down syndrome. 4. Morbid obesity. PLAN: 1. Continue antibiotic regimen. 2. Rotate oxygen devices as tolerated. 3. Physical therapy and get out of bed as tolerated. cc: Charanjit Ray MD
[2019-06-17] MEDS: MUCOMYST 20% INH SCH ×2 (08:21→20:00)
[2019-06-17] MEDS: HALDOL IV PRN (08:51)
--- NOTE | 2019-06-17 13:31 | PROGRESS NOTE ---
DATE: 06/17/2019 SUBJECTIVE: The patient overnight, according to nursing staff, became really agitated and her oxygen needs go really high if no family member is with her. Mom stayed last night with her. Her oxygen has been stable, although she continues to require oxygen by high-flow nasal cannula. OBJECTIVE: Vital Signs: Temperature 97.3 degrees, heart rate 106, respiratory rate 24, blood pressure 171/108, and O2 saturation 98% on high-flow nasal cannula at 30 liters per minute. General: On examination, this is a 29-year-old, morbidly obese, female with history of Down's syndrome lying in bed, in no acute distress. Cardiovascular: S1, S2 heard. No murmurs, gallops, or rubs. Regular rate and rhythm. Respiratory: Coarse breath sounds noted in both pulmonary mckinnon with scattered rhonchi as well, but patient is not using any accessory muscles or having work of breathing. Abdomen: Soft, obese, nontender to palpation. Bowel sounds present. No organomegaly. Extremities: No clubbing, cyanosis, or edema. Peripheral pulses present in both legs. Neurological: Patient is awake. Follows basic commands. Moves 4 extremities spontaneously. LABORATORY DATA: White cell count 10.24, hemoglobin 11, hematocrit 35.1, platelets 355,000 with BMP that reveals potassium 3.2 and glucose 116. ASSESSMENT AND PLAN: 1. Acute hypoxemic and hypercapnic respiratory failure. On this patient, unfortunately every time she becomes agitated her oxygen needs get really high. At this point, we will continue to monitor this patient closely in the Intensive Care Unit. We will continue with high-flow nasal cannula. I do not think we are going to move this patient to step-down unit, because if she becomes agitated again we will need to send this patient back to the unit. Pulmonary is following this patient. We will follow recommendations. 2. Community-acquired pneumonia, resolved. Dr. Olmedo from infectious disease has stopped antibiotics. 3. Acute kidney injury. Creatinine is almost back to normal. 4. Down syndrome, aware. 5. Hyponatremia, resolved. 6. Nutritional status. Patient is on a liquid diet and thick liquids. We will continue with same management. 7. Diarrhea. Clostridium difficile study has been order. There are no results yet. 8. Agitation, we will continue with 2.5 mg of Haldol IV every 6 hours as needed. 9. Disposition. We will continue to monitor this patient closely in the intensive care unit. cc: Pastro Rm MD
[2019-06-17] MEDS: D5 1/2 NS 1,000 ML IV SCH (15:23)
[2019-06-17] MEDS: PROTONIX IV SCH (15:23)
[2019-06-17] MEDS: SODIUM CHLORIDE 0.9% INJ SCH (15:23)
[2019-06-17] MEDS: LOVENOX SUBQ SCH (15:24)
[2019-06-17] MEDS: ATIVAN IV PRN (23:12)
--- NOTE | 2019-06-18 00:10 | INFECTIOUS DISEASE PROGRESS NO ---
DATE: 06/17/2019 SUBJECTIVE: The patient was being treated for pneumonia, it has cleared. She is having diarrhea but her stool for Clostridium difficile is negative. MEDICATIONS: The patient is on no antibiotics. PHYSICAL EXAMINATION: Vital Signs: Temperature is 98.4 degrees, pulse 85, respirations 16, blood pressure is 151/90. General: This is an obese, young female. She is in no acute distress. Head, eyes, ears, nose, and throat: No drainage noted from the nose or the ears. I could not get a good look into her mouth. Neck: No pain with movement. Lungs: Clear to auscultation. Cardiovascular: Regular heart rate. Abdomen: Soft and nontender. Neurologic: The patient is awake. She did answer questions by sticking her thumbs up. There is no tremor. LAB AND X-RAY STUDIES: Chest x-ray shows pulmonary edema, but no consolidation. Creatinine is 0.9, GFR is greater than 60. Liver function studies are normal. CBC shows a white count of 10,240, hemoglobin 11 and platelet count is 355,000. Stool for Clostridium difficile toxin and antigen are negative. ASSESSMENT AND PLAN: Patient does not have pneumonia or Clostridium difficile diarrhea and, in fact, I do not think she has any active infection at this time. I do not think she needs any antibiotics at this time. I am signing off of her care but I am available to see her on a p.r.n. basis. COMORBIDITIES: The patient has Down syndrome and obesity. She does have diarrhea but it is negative for Clostridium difficile. I do not think the patient needs any further antibiotics. I am signing off of her case. I am available to see her p.r.n. cc: Avinash Olmedo MD
--- NOTE | 2019-06-18 02:21 | PULMONOLOGY PROGRESS NOTE ---
DATE: 06/17/2019 SUBJECTIVE: Patient gives the practitioner 2 thumbs up upon arrival to the room. She appears to be unhappy and frowning. Family at bedside. OBJECTIVE: Vital Signs: The patient has been afebrile for the last 24 hours. She remains on high-flow O2 at 80%, BP 118/98, heart rate 107, oxygen saturation 98%. HEENT: Pupils are equal and reactive. Oropharynx appears clear. Neck: Supple. Chest: Reveals crackles in both lung bases. Cardiac: S1, S2. Abdomen: Obese and soft. Extremities: Without edema. LABORATORIES: Chest x-ray reveals shallow inspiration with mildly prominent heart size. White blood count 10.24, hemoglobin 11.0, platelet count 355,000. Sodium 139, potassium 3.2, chloride 95. IMPRESSION: 1. A 29-year-old with acute hypoxemic and hypercapnic respiratory failure. 2. Down's syndrome. 3. Morbid obesity. 4. Bilateral pneumonia with ongoing hypoxemia. PLAN: 1. Antibiotic regimen per Infectious Disease. I believe the plan is to discontinue antibiotics. 2. Continue bronchial hygiene. 3. Continue physical therapy. 4. Wean oxygen as tolerated. Hopefully she will continue to improve. cc: Charanjit Ray MD
[2019-06-18] MEDS: DUONEB (A & A) INH SCH ×7 (04:00→23:37)
[2019-06-18 05:54] LABS: HEMATOCRIT 34.1 % (37.0-47.0); HEMOGLOBIN 10.8 g/dL (12.0-16.0); MCH 29.2 PG (27-31); MCHC 31.7 g/dL (33-37); MCV 92.2 FL (81-99); RBC 3.7 XMIL (4.2-5.4); RDW 14.2 % (11.5-14.5); WBC 10.57 X1000 (4.8-10.8)
[2019-06-18 06:27] LABS: AGAP 14; ALB/GLOB RATIO 1.3; ALBUMIN 3.8 g/dL (3.5-5.0); ALKALINE PHOSPHATASE 48 U/L (32-104); BUN 16 mg/dL (8-22); CHLORIDE 97 mmol/L (98-107); COSMO 279; CREATININE 0.9 mg/dL (0.5-0.9); ESTIMATED GFR > 60; GLUCOSE 112 mg/dL (70-104); GOT 16 U/L (10-30); GPT 24 U/L (10-36); SODIUM 139 mmol/L (136-145); TCO2 28 mmol/L (25-35); TOTAL BILIRUBIN 0.15 mg/dL (0.20-1.00); TOTAL PROTEIN 6.8 g/dL (6.3-8.3)
--- NOTE | 2019-06-18 07:06 | Diag Imaging Result Doc PS360 ---
EXAM: CHEST-PORTABLE 06/18/2019 HISTORY: Vent Protocol/ New NG tube placement TECHNIQUE: AP portable upright at 0500 COMMENT: The inspiration is less optimal than on 06/17/2019. There is bibasilar atelectasis. There is a PICC line on the right with its tip in the right atrium. IMPRESSION: Poor inspiration. Bibasilar atelectasis. Electronically signed by Will Penn 06/18/2019 7:03 AM
[2019-06-18] MEDS: MUCOMYST 20% INH SCH ×2 (07:35→20:13)
[2019-06-18] MEDS: ATIVAN IV PRN ×2 (10:07→21:04)
[2019-06-18] MEDS: D5 1/2 NS 1,000 ML IV SCH (12:10)
--- NOTE | 2019-06-18 12:18 | PROGRESS NOTE ---
DATE: 06/18/2019 SUBJECTIVE: According to the nursing staff, she has been kind of restless last night, even with mom at bedside. Today, upon my examination, she has been on the floor after she was sitting in the chair. When she started becoming a little bit agitated, her oxygen needs go up. OBJECTIVE: Vital Signs: Temperature 97.6 degrees, heart rate 75, respiratory rate 21, blood pressure 123/84, O2 saturation 96% on high-flow nasal cannula at 30%. General Examination: This is a 29-year-old, morbidly obese, female with a history of Down's syndrome, lying in bed, in no acute distress. Cardiovascular Examination: S1 and S2 heard. No murmurs, gallops, or rubs. Regular rate and rhythm. Respiratory Examination: Coarse breath sounds noted in both pulmonary mckinnon with scattered rhonchi in both bases but patient is not using any accessory muscles or having work of breathing. Abdomen: Soft, obese, nontender to palpation. Bowel sounds present. No organomegaly. Extremities: No clubbing, cyanosis, or edema. Peripheral pulses present in both legs. Neurological Examination: The patient is awake. Followed basic commands. Moves 4 extremities. Laboratory Data: Reviewed. CBC and BMP are unremarkable. ASSESSMENT AND PLAN: 1. Acute hypoxemic, hypercapnic respiratory failure. Patient continues to require oxygen by high- flow nasal cannula. Apparently, she can maintain oxygen saturation above 90 with nasal cannula but she keeps removing it. I think, at this point, she is getting better. I think we can transfer this patient out of the intensive care unit today and transfer her to the PVC unit. Pulmonary is following this patient. We will follow recommendations. 2. Community-acquired pneumonia, resolved. Infectious disease, Dr. Olmedo, has stopped antibiotics. 3. Acute kidney injury, resolved. 4. Down syndrome, aware. 5. Hyponatremia, resolved. 6. Nutritional status. The patient continues to be on thick liquids, on a liquid diet as well. 7. Diarrhea, resolved. 8. Agitation. We will continue with Haldol 2.5 mg intravenously every 6 hours as needed. 9. Disposition. The patient is going to be transferred to the PVC unit. cc: Pastor Rm MD
[2019-06-18] MEDS: PROTONIX IV SCH (16:31)
[2019-06-18] MEDS: SODIUM CHLORIDE 0.9% INJ SCH (16:31)
[2019-06-18] MEDS: LOVENOX SUBQ SCH (16:31)
[2019-06-19] MEDS ORDERED: TYLENOL LIQUID PO PRN (00:13)
[2019-06-19] MEDS: ATIVAN IV PRN (02:00)
--- NOTE | 2019-06-19 02:45 | PULMONOLOGY PROGRESS NOTE ---
DATE: 06/18/2019 SUBJECTIVE: The patient is sitting up in the bed. She is coloring. She is without specific complaints. OBJECTIVE: Vital Signs: The patient has been afebrile for the last 24 hours. BP 148/78, heart rate 104, respiratory rate 12, oxygen saturation 96% on 38% FiO2. HEENT: Pupils are equal and reactive. Oropharynx appears clear. Neck: Supple. Chest: Reveals crackles in both lung bases. Cardiac: S1-S2. Abdomen: Obese and soft. Extremities: Without edema. LABORATORIES: White blood count 10.6, hemoglobin 10.8, platelet count 369,000. Chest x-ray reveals shallow inspiration with basilar atelectasis. IMPRESSION: A 29-year-old with: 1. Acute hypoxemic and acute hypercapnic respiratory failure. 2. Down syndrome. 3. Bilateral pneumonia. 4. Morbid obesity. PLAN: 1. Continue bronchial hygiene. 2. Continue physical therapy. 3. Wean oxygen as tolerated. 4. Anticipate transfer to the PVC unit. cc: Charanjit Ray MD
[2019-06-19] MEDS: DUONEB (A & A) INH SCH ×6 (02:55→22:34)
[2019-06-19] MEDS: HALDOL IV PRN (03:24)
--- NOTE | 2019-06-19 07:41 | Diag Imaging Result Doc PS360 ---
CHEST-PORTABLE - 06/19/2019 INDICATION: Vent Protocol/ New NG tube placement COMPARISON: 06/18/2019 FINDINGS: Stable right PICC line. Lung volumes are improved but still severely low. There is improvement in the nonspecific bibasilar atelectasis or infiltrate. Stable pulmonary vascular congestion versus central crowding. IMPRESSION: Improved aeration of the lungs. Electronically signed by Nitin Barillas 06/19/2019 7:39 AM
[2019-06-19] MEDS: MUCOMYST 20% INH SCH ×2 (07:43→20:17)
[2019-06-19 08:18] LABS: AGAP 14; ALB/GLOB RATIO 0.9; ALBUMIN 3.3 g/dL (3.5-5.0); ALKALINE PHOSPHATASE 47 U/L (32-104); BUN 16 mg/dL (8-22); CALCIUM 9.3 mg/dL (8.8-10.2); CHLORIDE 100 mmol/L (98-107); COSMO 283; CREATININE 0.9 mg/dL (0.5-0.9); ESTIMATED GFR > 60; GLUCOSE 115 mg/dL (70-104); GOT 11 U/L (10-30); GPT 18 U/L (10-36); POTASSIUM 3.7 mmol/L (3.5-5.1); SODIUM 141 mmol/L (136-145); TCO2 27 mmol/L (25-35); TOTAL BILIRUBIN 0.18 mg/dL (0.20-1.00); TOTAL PROTEIN 7.1 g/dL (6.3-8.3)
[2019-06-19 08:25] LABS: HEMATOCRIT 35.7 % (37.0-47.0); HEMOGLOBIN 11.2 g/dL (12.0-16.0); MCH 28.8 PG (27-31); MCHC 31.4 g/dL (33-37); MCV 91.8 FL (81-99); MPV 10.7 FL (7.4-10.4); RBC 3.89 XMIL (4.2-5.4); RDW 14.5 % (11.5-14.5); WBC 10.99 X1000 (4.8-10.8)
--- NOTE | 2019-06-19 14:55 | PROGRESS NOTE ---
DATE: 06/19/2019 SUBJECTIVE: The patient during the last night she had been very restless and trying to pull out her nasal cannula Venturi mask. She ended up having been placed on high-flow nasal cannula. OBJECTIVE: Vital Signs: Temperature 97.3 degrees, heart rate 78, respiratory 14, blood pressure 114/74 and O2 saturation 100% on high-flow nasal cannula. General: This is a 29-year-old morbidly obese female with a history of Down's syndrome lying in bed in no acute distress. Cardiovascular: S1, S2 heard. No murmurs, gallops, or rubs. Regular rate and rhythm. Respiratory: Coarse breath sounds noted in both pulmonary mckinnon with scattered rhonchi in both bases. Patient is not using any accessory muscles or having work of breathing. Abdomen: Soft. Nontender to palpation. Bowel sounds present. No organomegaly. Extremities: No clubbing, cyanosis, or edema. Peripheral pulses present in both legs. Neurological: Patient is awake. Does follow basic commands. Does not answer questions my today. LABORATORY DATA: Reviewed. ASSESSMENT AND PLAN: 1. Acute hypoxemic and hypercapnic respiratory failure. Unfortunately, patient continues to require high amounts of oxygen because it is very difficult to keep her calmed down. The patient has had a very difficult night last night. I think at this point we will continue to monitor this patient closely in the PVC unit. 2. Community-acquired pneumonia resolved. 3. Acute kidney injury resolved. 4. Down syndrome aware. Will continue home medications. 5. Hyponatremia resolved. 6. Nutritional status. Patient continues to be on thick liquids and liquid diet as well. 7. Diarrhea resolved. 8. Agitation. Currently, the patient is receiving Haldol 2.5 mg q.6 hours and we will continue with the same management. 9. Disposition: We will continue to monitor this patient here in the PVC unit. cc: Pastor Rm MD
[2019-06-19] MEDS: D5 1/2 NS 1,000 ML IV SCH (16:44)
[2019-06-19] MEDS: PROTONIX IV SCH (16:46)
[2019-06-19] MEDS: LOVENOX SUBQ SCH (16:46)
[2019-06-20] MEDS: DUONEB (A & A) INH SCH ×6 (03:03→23:38)
[2019-06-20] MEDS: HALDOL IV PRN ×3 (03:15→19:34)
[2019-06-20 06:17] LABS: HEMATOCRIT 35.3 % (37.0-47.0); HEMOGLOBIN 11.1 g/dL (12.0-16.0); MCH 29.1 PG (27-31); MCHC 31.4 g/dL (33-37); MCV 92.7 FL (81-99); MPV 10.8 FL (7.4-10.4); RBC 3.81 XMIL (4.2-5.4); RDW 14.9 % (11.5-14.5); WBC 10.59 X1000 (4.8-10.8)
[2019-06-20 07:34] LABS: AGAP 18; ALB/GLOB RATIO 1.2; ALBUMIN 3.7 g/dL (3.5-5.0); ALKALINE PHOSPHATASE 55 U/L (32-104); BUN 14 mg/dL (8-22); CALCIUM 9.3 mg/dL (8.8-10.2); CHLORIDE 101 mmol/L (98-107); COSMO 283; CREATININE 0.8 mg/dL (0.5-0.9); ESTIMATED GFR > 60; GLUCOSE 119 mg/dL (70-104); GOT 14 U/L (10-30); GPT 17 U/L (10-36); POTASSIUM 3.9 mmol/L (3.5-5.1); SODIUM 141 mmol/L (136-145); TCO2 22 mmol/L (25-35); TOTAL BILIRUBIN 0.16 mg/dL (0.20-1.00); TOTAL PROTEIN 6.9 g/dL (6.3-8.3)
[2019-06-20] MEDS: MUCOMYST 20% INH SCH ×2 (08:04→19:52)
[2019-06-20] MEDS: ATIVAN IV PRN (09:50)
[2019-06-20] MEDS: D5 1/2 NS 1,000 ML IV SCH (10:12)
--- NOTE | 2019-06-20 11:12 | Diag Imaging Result Doc PS360 ---
EXAM: CHEST-PORTABLE HISTORY: Vent Protocol/ New NG tube placement TECHNIQUE: Single view COMPARISON: 06/19/2019 FINDINGS: Poor inspiratory effort. There is a right-sided PICC line. No nasogastric tube identified. No consolidation. Heart is mildly prominent. No pleural effusions identified. IMPRESSION: No nasogastric tube identified. Electronically signed by Solomon Hutchison 06/20/2019 11:10 AM
[2019-06-20] MEDS: LOVENOX SUBQ SCH (15:28)
[2019-06-20] MEDS: PROTONIX IV SCH (15:28)
--- NOTE | 2019-06-20 20:21 | PROGRESS NOTE ---
DATE: 06/20/2019 SUBJECTIVE: Patient has been, according to nursing staff, a little less restless. Now she is using nasal cannula and maintaining O2 saturation. She has calmed down. OBJECTIVE: Vital Signs: Temperature 98.0, heart rate 112, respiratory rate 16, blood pressure 147/87, O2 saturation 95% on 5 L nasal cannula. General: This is an obese 29-year-old female with a history of Down's syndrome, lying in bed in no acute distress. Cardiovascular: S1, S2 heard. No murmurs, gallops, or rubs. Regular rate and rhythm. Respiratory: Coarse breath sounds noted in both pulmonary mckinnon with scattered rhonchi in both bases. Patient not using any accessory muscles or having work of breathing. Abdomen: Soft, nontender to palpation. Bowel sounds present. No organomegaly. Extremities: No clubbing, cyanosis, or edema. Peripheral pulses present in both legs. Neurological: Patient is awake. Does follow basic commands. LABORATORY DATA: Reviewed. ASSESSMENT AND PLAN: 1. Acute hypoxemic, hypercapnic respiratory failure. The patient has been a little more calmed down. Her oxygen needs have decreased. At this point, we are working harder to keep her on nasal cannula. We will monitor closely in the [facility]. 2. Community-acquired pneumonia, resolved. 3. Acute kidney injury, resolved. 4. Down syndrome, aware. Will continue home medication. 5. Hyponatremia, resolved. 6. Nutritional status. The patient continues to be on thick liquids, liquid diet as well. 7. Diarrhea, resolved. 8. Agitation. Now receiving Haldol 2.55 mg IV every 6 hours, and Ativan as well. 9. Disposition: We will continue to monitor this patient closely. cc: Pastor Rm MD
[2019-06-21] MEDS: HALDOL IV PRN (03:29)
[2019-06-21] MEDS: DUONEB (A & A) INH SCH ×6 (03:39→23:29)
[2019-06-21] MEDS ORDERED: HALDOL IM ONE (03:41)
[2019-06-21] MEDS ORDERED: ATIVAN IM ONE (03:42)
[2019-06-21 04:29] LABS: PROTIME 13.3 Seconds (11.0-16.0)
[2019-06-21 04:34] LABS: HEMATOCRIT 38.6 % (37.0-47.0); HEMOGLOBIN 12.2 g/dL (12.0-16.0); MCH 28.7 PG (27-31); MCHC 31.6 g/dL (33-37); MCV 90.8 FL (81-99); MPV 10.4 FL (7.4-10.4); RBC 4.25 XMIL (4.2-5.4); RDW 14.9 % (11.5-14.5); WBC 15.87 X1000 (4.8-10.8)
[2019-06-21 04:49] LABS: AGAP 17; ALB/GLOB RATIO 0.9; ALBUMIN 3.8 g/dL (3.5-5.0); ALKALINE PHOSPHATASE 59 U/L (32-104); BUN 21 mg/dL (8-22); CALCIUM 10.2 mg/dL (8.8-10.2); CHLORIDE 93 mmol/L (98-107); COSMO 273; CREATININE 0.8 mg/dL (0.5-0.9); ESTIMATED GFR > 60; GLUCOSE 139 mg/dL (70-104); GOT 11 U/L (10-30); GPT 17 U/L (10-36); POTASSIUM 4.4 mmol/L (3.5-5.1); SODIUM 134 mmol/L (136-145); TCO2 24 mmol/L (25-35); TOTAL BILIRUBIN 0.19 mg/dL (0.20-1.00); TOTAL PROTEIN 8.1 g/dL (6.3-8.3)
[2019-06-21] MEDS: MUCOMYST 20% INH SCH ×2 (08:02→19:50)
[2019-06-21] MEDS ORDERED: STERILE WATER INJ. INJ PRN (10:09)
[2019-06-21] MEDS ORDERED: GEODON IM PRN (10:09)
[2019-06-21] MEDS ORDERED: ATIVAN IM PRN (10:10)
--- NOTE | 2019-06-21 12:10 | PROGRESS NOTE ---
DATE: 06/21/2019 SUBJECTIVE: The patient has been very agitated and restless at night, and she ended up pulling off her PICC line. Now, she is more calmed down. OBJECTIVE: Vital Signs: Temperature 99 degrees, heart rate 89, respiratory rate 23, blood pressure 134/64, O2 saturation 95% on 4 L nasal cannula. General: This is an obese, 29-year-old, female with history of Down syndrome, lying in bed in no acute distress. Cardiovascular: S1, S2 heard. No murmurs, gallops, or rubs. Regular rate and rhythm. Respiratory: Coarse breath sounds noted in both pulmonary bases. The patient is not using any accessory muscles or having work of breathing. Abdomen: Soft. Nontender to palpation. Bowel sounds present. No organomegaly. Extremities: No clubbing, cyanosis, or edema. Peripheral pulses present in both legs. Neurological: The patient is sleepy. Does not follow commands today. Moves all 4 extremities spontaneously. LABORATORY DATA: Reviewed. ASSESSMENT AND PLAN: 1. Acute hypoxemic hypercapnic respiratory failure. The patient has been more restless. He ended up pulling off peripherally-inserted central catheter line. At this time, we are planning to remove the Bhardwaj catheter, leave the intravenous access off, and will use medication of Haldol and Ativan intramuscularly. Will monitor this patient closely in the [facility], and if she does okay, will transfer her to a regular room tomorrow. 2. Community-acquired pneumonia, resolved. 3. Acute kidney injury, resolved. 4. Down syndrome. Aware. Will continue with current medications. 5. Hyponatremia, resolved. 6. Nutritional status. The patient continues to be on a thick liquid diet. 7. Agitation. Will continue with Geodon 20 mg intramuscularly every 6 hours as needed. cc: Pastor Rm MD [facility]
[2019-06-21] MEDS: PROTONIX IV SCH (15:34)
--- NOTE | 2019-06-21 16:02 | Diag Imaging Result Doc PS360 ---
EXAM: CHEST-PORTABLE - 06/21/2019 HISTORY: Vent Protocol/ New NG tube placement TECHNIQUE: Portable chest COMPARISON: 06/20/2019 FINDINGS: There is no endotracheal tube or nasogastric tube visible on venous exam, but there also was no endotracheal tube or nasogastric tube on the prior exam. The PICC has been removed. There is stable mild cardiomegaly. Inspiration is somewhat shallow. There is stable mild interstitial marking prominence. There is atelectasis at the right base. There is no evidence of pneumothorax. IMPRESSION: Stable mild cardiomegaly. Somewhat shallow inspiration. Stable mild interstitial marking prominence. Atelectasis at right base. Electronically signed by Mateo Mann 06/21/2019 4:00 PM
[2019-06-21] MEDS: LOVENOX SUBQ SCH (16:14)
[2019-06-22] MEDS: DUONEB (A & A) INH SCH ×3 (03:01→11:35)
--- NOTE | 2019-06-22 06:26 | Diag Imaging Result Doc PS360 ---
EXAM: CHEST-PORTABLE HISTORY: Vent Protocol/ New NG tube placement TECHNIQUE: Single view COMPARISON: 06/21/2019 FINDINGS: Poor inspiratory effort. The heart is not enlarged. Mild increased interstitial markings in the lower lungs. No pleural effusions identified. IMPRESSION: Stable chest Electronically signed by Solomon Hutchison 06/22/2019 6:24 AM
[2019-06-22 07:08] LABS: HEMATOCRIT 37.7 % (37.0-47.0); HEMOGLOBIN 11.9 g/dL (12.0-16.0); MCH 29.4 PG (27-31); MCHC 31.6 g/dL (33-37); MCV 93.1 FL (81-99); MPV 10.3 FL (7.4-10.4); RBC 4.05 XMIL (4.2-5.4); RDW 15.7 % (11.5-14.5); WBC 11.91 X1000 (4.8-10.8)
[2019-06-22 07:37] LABS: AGAP 11; ALB/GLOB RATIO 1.1; ALKALINE PHOSPHATASE 60 U/L (32-104); BUN 20 mg/dL (8-22); CALCIUM 10.1 mg/dL (8.8-10.2); CHLORIDE 99 mmol/L (98-107); COSMO 283; CREATININE 0.8 mg/dL (0.5-0.9); ESTIMATED GFR > 60; GLUCOSE 115 mg/dL (70-104); GOT 11 U/L (10-30); GPT 14 U/L (10-36); POTASSIUM 4.4 mmol/L (3.5-5.1); SODIUM 140 mmol/L (136-145); TCO2 30 mmol/L (25-35); TOTAL BILIRUBIN 0.24 mg/dL (0.20-1.00); TOTAL PROTEIN 7.5 g/dL (6.3-8.3)
[2019-06-22] MEDS: MUCOMYST 20% INH SCH (08:13)
[2019-06-22 11:17] VITALS: BP 128/69
--- NOTE | 2019-06-23 11:23 | DISCHARGE SUMMARY ---
ADMISSION DATE: 05/24/2019 DISCHARGE DATE: 06/22/2019 PRIMARY CARE PROVIDER: None. PRIMARY PROCEDURES: 1. Initial chest x-ray bilateral infiltrates. 2. Chest CT patchy airspace infiltrates and interstitial thickening throughout both lungs consistent with multilobar pneumonia, very small bilateral pleural effusion, fairly significant mediastinal lymphadenopathy. 3. 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 Consider UMANG if clinically indicated. 4. 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 5. Renal ultrasound very limited visualization of the left kidney due to body habitus, unremarkable renal ultrasound, otherwise. 6. Final chest x-ray: Poor inspiratory effort. Heart is not enlarged. Mild increased interstitial markings in the lower lungs, but no pleural effusions identified. DISCHARGE DIAGNOSES: 1. Acute hypoxemic hypercapnic respiratory failure secondary to bilateral community-acquired pneumonia, followed by pulmonology and infectious disease. The patient has received a full course of antibiotics in the hospital and will not be discharged on any antibiotics at home. She is currently saturating well at 97% on room air. 2. Bilateral community-acquired pneumonia. See #1. Resolved. 3. Acute kidney injury, resolved. Followed by Dr. Monzon. 4. Down syndrome aware. 5. Hyponatremia resolved. 6. Morbid obesity. HOSPITAL COURSE: Briefly, Ms. Chamberlain is a 29-year-old female with Down's syndrome who presented to the [facility] ER with complaints of cough and congestion over a period of 3 days on 05/24/2019 that had progressively worsening with subjective fever. Workup in the ED showed O2 saturations on 4 L nasal cannula 81%. The patient was placed on high-flow oxygen and was saturating at 94%. She had a white count of 12. Her ABG showed a pH of 7.36, a pCO2 of 57, PO2 of 27, and a bicarb of 27. Her influenza A and B were negative. Her chest x- ray did show bilateral infiltrates. She was placed on empiric antibiotics with vancomycin and cefepime, high- flow O2 bronchodilators, pulmonary consult and transferred to [facility] ICU. However, through the course of her hospitalization, the next day, the patient became progressively somnolent without medication. They rechecked her ABGs and the patient was intubated by anesthesia and initiated on mechanical ventilation and an NG tube catheter was placed as well. She was continued on broad-spectrum antibiotics, IV fluids. Unfortunately Ms Chamberlain stayed in the ICU and intubated for several days. They did check an echocardiogram. There was concern over a mass that was seen on her echocardiogram. 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 Cardiology signed off. Unfortunately, Ms. Chamberlain despite broad- spectrum antibiotics her pneumonia continued to worsen and Infectious Disease was brought on board. Her antibiotics were changed. Unfortunately, she suffered an acute kidney injury. Again antibiotics were rearranged and her kidney injury resolved slowly. Her pneumonia started to improve. I believe on 06/13 they were able to get her extubated after 1 failed extubation attempt early on. She was on an off high-flow O2 throughout the duration of her hospital stay without the agitation given her Down's syndrome. She was able to move out of the ICU to the step-down unit. Her pneumonia has completely resolved and been treated and she will be discharged back home with her parents and home health. VITAL SIGNS: At time of her discharge, temperature is 98.2 degrees axillary, heart rate 90, respirations 23, blood pressure 124/57. O2 is currently 97% on room air. DISCHARGE DIET: Regular. DISCHARGE MEDICATIONS: None. FOLLOWUP: Ms. Chamberlain is being discharged back home with her family and home health. She can return to the ED or call 911 for any worsening of symptoms. Dictated by LAITH Bond for Pastor Rm MD Addendum: Patient seen and examined by myself. Agree with LAITH note. It reflects my assessment and plan. Patient is being discharged from hospital in stable condition. Will be seen by PCP in a week. cc: Pastor Rm MD [facility]
== END 2019-06-22 13:25 | disposition home health service (06) | DRG 207 ==
LOC: P.ED 11:44 → ICU 14:49 → SUATTDRO 14:49 → 2N 06-18 21:22
PROVIDERS: ATTEND Internal Medicine